=== PATIENT | male | born 1985 | race Caucasian/White ===

== ENCOUNTER 2023-03-21 12:59 | Outpatient (OUT) | payer OTHER, SELFPAY ==
--- NOTE | 2023-03-21 13:13 | XR_ITS ---
[address] [address] Patient Name: PAT BAIRES MRN: [id number] date: 1985 Sex: M Assigned Patient Location: RAD Current Patient Location: [facility] Accession/Order Number: [id number] Exam Date: 03/21/2023 13:25 Report Date: 03/21/2023 13:57 At the request of: ANABELA GARNETT Procedure: XR lumbar spine 2-3V EXAM: XR lumbar spine 2-3V HISTORY: Low Back Derangement Syndrome M53.86 COMPARISON: None. TECHNIQUE: 2 views FINDINGS: Satisfactory alignment. Maintained vertebral body heights and disc spaces. No acute fracture or subluxation. Unremarkable soft tissues. IMPRESSION: Unremarkable exam. Electronically authenticated by: ADEN ROSS Date: 03/21/2023 13:57
--- NOTE | 2023-03-21 13:13 | XR_ITS ---
[address] [address] Patient Name: PAT BAIRES MRN: [id number] date: 1985 Sex: M Assigned Patient Location: RAD Current Patient Location: [facility] Accession/Order Number: [id number] Exam Date: 03/21/2023 13:25 Report Date: 03/21/2023 13:46 At the request of: ANABELA GARNETT Procedure: XR cervical spine 5V EXAM: XR cervical spine 5V HISTORY: Radiculopathy Cervical Region M54.12 COMPARISON: None. TECHNIQUE: 5 views Findings/impression: Straightening of the cervical spine alignment. Maintained vertebral body heights and disc spaces. Endplate degenerative changes anterior spurring of C6-C7. No acute fracture or subluxation. Unremarkable soft tissues. Electronically authenticated by: ADEN ROSS Date: 03/21/2023 13:46
== END 2023-03-21 13:00 | disposition home or self-care (01) ==
LOC: RAD 13:06
PROVIDERS: PCP Family Medicine; Visit Provider Family Medicine
DX: M53.86 Other specified dorsopathies, lumbar region (principal); M54.12 Radiculopathy, cervical region
CPT/HCPCS: 72050; 72100

== ENCOUNTER 2023-05-07 08:32 | Outpatient (OUT) | payer OTHER, SELFPAY ==
--- NOTE | 2023-05-07 08:15 | NM_ITS ---
Patient: PAT BAIRES Exam Date: 05/07/2023 : 1985 Gender:M Ordering : DR Kg Javed . Admission #: [id number] Family : Order #: [id number] CLICK HERE TO VIEW EXAM RADIOLOGY REPORT PROCEDURE: NM RAMA PERF SPECT REST STR COMPARISON: None. INDICATIONS: DYSPNEA, COPD TECHNIQUE: Exam Description: Stress/Rest one day protocol gated SPECT Rest Imagin.9 mCi Tc-99m Cardiolite IV on 05/07/2023 Stress Imaging 30.3 mCi Tc-99m Cardiolite IV on 05/07/2023 Exercise Protocol: Carlos Enrique Heart Rate (bpm): Rest: 74 Max: 153 PMHR: 85 Blood Pressure: Rest: 124/88 Max: 166/104 Exercise Time: Minutes: 09 Seconds: 21 Stage Reached: Stage: 3 Mets 10.1 Symptoms: Rest and peak stress ECG findings were normal and the exercise portion of the study was normal per attending physician Dr. Schwartz . For more details please see separate cardiac stress test report. FINDINGS: QUALITY OF STUDY: Excellent. PERFUSION DEFECT: None. LOCATION: N/A SIZE: N/A. SEVERITY: N/A. TYPE: N/A. WALL MOTION: Normal. LV SIZE: Normal. 115 mL. TID / TCD: None; 0.9 LVEF: Normal. Calculated EF 58%. SUMMARY: Myocardial perfusion imaging study is NORMAL. CONCLUSION: 1. Normal nuclear medicine myocardial perfusion scan. Dictated by: Magen Johnson M.D. on 05/08/2023 at 12:01 Approved by: Magen Johnson M.D. on 05/08/2023 at 12:04
--- NOTE | 2023-05-07 12:47 | PM.STRESS ---
Stress Test Stress Test Requesting physician: Kg Javed Procedure: Exercise Cardiolite stress test General Information: Reason for Stress Test: COPD Cardiac History and Risk Factors: Former smoker, currently uses e-cigarettes. Father, mother, and grandfather had stents . Resting 12 - Lead Electrocardiogram: Rate & rhythm: Normal sinus at a rate of 80. [place]: Normal T-waves: Normal orientation ST-segments: Normal Stress Test: Protocol: Carlos Enrique protocol was followed, with injection of Cardiolite once target heart rate was achieved. Exercise capacity: Good exercise capacity. Total exercise time of 9 minutes 22 seconds reached Carlos Enrique stage 3 at 3.4MPH, 14% grade, & 10.1 METs. Blood pressure: Initial: 124/88, Maximum: 166/104, Recovery: 140/86 Rate & rhythm: Patient remained in sinus rhythm during the exercise and recovery portions of the study.? The maximum heart rate was 153, which was 85% of the maximum predicted heart rate 74. ST-segments & T-waves: There were no T-wave changes and no ST-segment changes when compared to the baseline EKG. Patient response/symptoms: Patient voiced fatigue. Interpretation: Normal exercise stress test. Patient was asymptomatic regarding chest pain. Cardiolite imaging interpretation will be reported separately. Clinical correlation required.?
== END 2023-05-07 08:33 | disposition home or self-care (01) ==
LOC: NM 08:32
PROVIDERS: PCP Family Medicine; Visit Provider Family Medicine
DX: J44.9 Chronic obstructive pulmonary disease, unspecified (principal)
CPT/HCPCS: 78452; 93017; A9500

== ENCOUNTER 2023-09-29 15:15 | Outpatient (OUT) | payer OTHER, SELFPAY | END 2023-09-29 15:16 | disposition home or self-care (01) | LOC: PST 15:16 | PROVIDERS: PCP Family Medicine; Visit Provider Surgery | DX: Z01.818 Encounter for other preprocedural examination (principal); K21.9 Gastro-esophageal reflux disease without esophagitis; R11.10 Vomiting, unspecified ==

== ENCOUNTER 2023-10-01 06:34 | Day surgery (SDC) | payer OTHER, SELFPAY ==
--- NOTE | 2023-10-01 | OP_ITS ---
OPERATION DATE: 10/01/2023 PREOPERATIVE DIAGNOSIS: Dysphagia, gastroesophageal reflux disease, regurgitation. POSTOPERATIVE DIAGNOSIS: Mild antral gastritis as well as nodular inflammation at the gastric cardia. PROCEDURE: EGD with antral biopsy and biopsy of gastric cardia inflammation. SURGEON: Matias Santamaria M.D. ANESTHESIA: Monitored anesthesia care. ESTIMATED BLOOD LOSS: Less than 1 mL. INDICATIONS AND CONSENT: Patient is a 38-year-old male with history of worsening gastroesophageal reflux disease, regurgitation and intermittent dysphagia. Indications, risks, benefits, alternatives of proceeding with EGD were explained extensively to the patient, including the risks of bleeding, aspiration, esophageal/gastric/duodenal perforation or anesthetic complications. All of his questions were answered. Informed consent was obtained. PROCEDURE: Patient brought to the operating room, placed in the left lateral decubitus position. Monitored anesthesia care was provided. Bite block was placed in the patient?s mouth. Scope was inserted into the oropharynx. Under direct visualization, it was advanced into the esophagus, past the cricopharyngeus, down to the stomach. The stomach was insufflated with air. The pylorus was traversed down to the descending portion of the duodenum. There was no evidence of duodenitis or ulceration. There was no scarring within the pyloric channel. Scope was pulled back into the stomach and retroflexed. There was no significant hiatal hernia. Within the antrum, there was linear antral gastritis consisting of erythema. No erosions or bleeding. Multiple biopsies were obtained with pediatric cold biopsy forceps with good hemostasis. Within the cardia, there was some nodular inflammation that was biopsied x2, as well, with pediatric cold biopsy forceps with good hemostasis. The GE junction was noted at 40 cm. No distal esophagitis or Hebert?s changes. The remainder of the esophagus was unremarkable. The scope was then withdrawn. Patient tolerated procedure well, was sent to recovery room in good condition. CC: Kg Javed M.D. [facility]ALS[facility]
--- OUTSIDE RECORDS SUMMARY | 2023-10-01 06:37 | XMS_ITS | CCD ---
Author Name Unknown Address [address] [facility] [address] [place] [address] Organization [facility] Care Team Providers Care Supervisor Calibration Name Role Phone TELLO ., DR PEÑALOZA Primary Care Unavailable HOY ., DR PEÑALOZA Admitting Unavailable HOY ., DR PEÑALOZA Attending Unavailable HOY ., DR PEÑALOZA Consulting Unavailable HOY ., DR PEÑALOZA Primary Care Unavailable HOY ., DR PEÑALOZA Admitting Unavailable HOY ., DR PEÑALOZA Attending Unavailable HOY ., DR PEÑALOZA Consulting Unavailable ZIEBER, DR MARY ELLEN Whitten Consulting Unavailable HOY ., DR PEÑALOZA Primary Care Unavailable HOY ., DR PEÑALOZA Admitting Unavailable HOY ., DR PEÑALOZA Attending Unavailable HOY ., DR PEÑALOZA Consulting Unavailable Rosetta Dupont Consulting Unavailable HOY ., DR PEÑALOZA Primary Care Unavailable HOY ., DR PEÑALOZA Admitting Unavailable HOY ., DR PEÑALOZA Attending Unavailable HOY ., DR PEÑALOZA Consulting Unavailable ZIEBER, DR MARY ELLEN Whitten Consulting Unavailable HOY ., DR PEÑALOZA Primary Care Unavailable HOY ., DR PEÑALOZA Admitting Unavailable HOY ., DR PEÑALOZA Attending Unavailable HOY ., DR PEÑALOZA Consulting Unavailable NAWAF GUAMAN Consulting Unavailable Anabela Garnett Primary Care Physician Matias MINAYA Attending Unavailable Anabela Garnett Referring Unavailable Allergies Allergy Classification Reported Allergen(s) Allergy Type Date of Onset Reaction(s) Facility (1 source) No Known Medication Allergies; Translations: [No Known Medication Allergies] Propensity to adverse reactions (disorder) [facility] Repository Medications Current Medications Medication Drug Class(es) Dates Sig (Normalized) Sig (Original) 24 hr desvenlafaxine succinate 50 mg extended release oral tablet (1 source) Serotonin and Norepinephrine Reuptake Inhibitor Start: 08-08-2023 Pristiq 50 mg Tab-ER Refills(s) 0 Start Date: 08/08/23 Status: Ordered hydrOXYzine hydrochloride 25 mg oral tablet (1 source) Antihistamine Start: 08-08-2023 take 1 tablet by mouth four times daily hydrOXYzine hydrochloride 25 mg Tab 25 mg = 1 tab(s), Oral, QID, Refills(s) 0 Start Date: 08/08/23 Status: Ordered pantoprazole 40 mg delayed release oral tablet (1 source) Proton Pump Inhibitor Start: 08-08-2023 take 1 tablet by mouth once daily Protonix 40 mg Tab-DR 40 mg = 1 tab(s), Oral, Daily, Refills(s) 0 Start Date: 08/08/23 Status: Ordered simvastatin 40 mg oral tablet (1 source) HMG-CoA Reductase Inhibitor Start: 08-08-2023 take 1 tablet by mouth once daily in the evening simvastatin 40 mg Tab 40 mg = 1 tab(s), Oral, qPM, Refills(s) 0 Start Date: 08/08/23 Status: Ordered Problems Active Problems Problem Classification Problem Date Documented Date Episodic/Chronic Abdominal hernia (1 source) Diaphragmatic hernia without obstruction or gangrene; Translations: [DIAPH HERNIA W/O OBST/GANGRENE] Onset: 01-02-2023 Episodic Abdominal pain (5 sources) Epigastric pain; Translations: [EPIGASTRIC PAIN] Onset: 09-24-2022 Episodic Anxiety disorders (1 source) Generalized anxiety disorder 08-08-2023 Chronic Chronic obstructive pulmonary disease and bronchiectasis (2 sources) Chronic obstructive pulmonary disease, unspecified; Translations: [Chronic obstructive lung disease] Onset: 01-02-2023 08-08-2023 Chronic Disorders of lipid metabolism (2 sources) Pure hypercholesterolemia, unspecified; Translations: [Pure hypercholesterolemia] Onset: 09-13-2022 08-08-2023 Chronic Esophageal disorders (3 sources) Gastro-esophageal reflux disease without esophagitis; Translations: [Gastroesophageal reflux disease without esophagitis] Onset: 09-26-2022 Chronic Nausea and vomiting (2 sources) Vomiting; Translations: [Vomiting, unspecified] Onset: 08-19-2023 Episodic Nonspecific chest pain (6 sources) Other chest pain; Translations: [Chest pain] Onset: 12-30-2022 Episodic Osteoarthritis (4 sources) Unspecified osteoarthritis, unspecified site; Translations: [UNSPECIFIED OSTEOARTHRITIS UNS SITE] Onset: 09-10-2022 Chronic Other nutritional; endocrine; and metabolic disorders (1 source) Body mass index 30+ - obesity 08-19-2023 Chronic Other nutritional; endocrine; and metabolic disorders (1 source) Obesity 08-08-2023 Chronic Past or Other Problems Problem Classification Problem Date Documented Da te Episodic/Chronic Other screening for suspected conditions (not mental disorders or infectious disease) (1 source) Encounter for screening for malignant neoplasm of prostate; Translations: [ENC SCREEN MALIG NEOPLASM PROSTATE] Onset: 04-30-2022 Episodic Results Test Name Value Interpretation Reference Range Facility Consent for Procedure/Surger yon 08-21-2023 Consent for Procedure/Surgery [id number] F Normal [facility] Facesheeton 08-20-2023 Facesheet [id number]#[id number] [facility] Ambulatory Visit Summaryon 1 10-20-2022 Ambulatory Visit Summary NEDA BAIRESCHULA Holt :1985 Visit Date:08/19/2023 Ambulatory Visit Instructions Your Care Team Attending Physician - REI KINGSLEY, Matias Whitten Primary Care Physician - Tello KINGSLEY, Anabela Referring Physician - Anabela Garnett MD This Is Your Medications List desvenlafaxine (Pristiq 50 mg Tab-ER) hydrOXYzine (hydrOXYzine hydrochloride 25 mg Tab) pantoprazole (Protonix 40 mg Tab-DR) simvastatin (simvastatin 40 mg Tab) Procedures Performed Closed fracture of right femur. Discharge Vitals Heart Rate (Peripheral) 76 Respiratory Rate 16 Blood Pressure 136/90 Height 167.6 cm Height 66 in Weight 89 kg Weight 195.8 lb BMI 31.68 Medications What How Much When Instructions Unchanged desvenlafaxine (Pristiq 50 mg Tab-ER) Unchanged hydrOXYzine (hydrOXYzine hydrochloride 25 mg Tab) 1 Tablets By Mouth 4 times a day Unchanged pantoprazole (Protonix 40 mg Tab-DR) 1 Tablets By Mouth Every day Unchanged simvastatin (simvastatin 40 mg Tab) 1 Tablets By Mouth Once a day (in the evening) Medications and Immunizations Administered Not Given influenza virus vaccine, inactivated, Patient Refuses Allergies No Known Allergies No Known Medication Allergies Problems Ongoing - Any problem that you are currently receiving treatment for. BMI 31.0-31.9,adult Chronic obstructive pulmonary disease Gastroesophageal reflux disease Generalized anxiety disorder Obesity Pure hypercholesterolemia Patient Survey You may receive a survey via text or e-mail asking about your office visit. Please share your experience with us by completing your survey. We appreciate your feedback and thank you for choosing us for your care. Normal [facility] Consultation Noteon 07-03-20 23 Consultation Note [id number] F Normal [facility] Physician Referralon 023 Physician Referral [id number] F Normal [facility] CT ABDOMEN W CONon [address]BD[address] W CON CT ABDOMEN W CON, 12/30/2022 7:37 AM EDT INDICATION: Epigastric pain COMPARISON: Small bowel follow-through 09/24/2022 TECHNIQUE: Axial images of the abdomen were obtained after the administration of oral and IV contrast. Multiplanar reformatted images were generated and reviewed as needed. Dose reduction techniques were achieved by using automated exposure control and/or adjustment of mA and/or kV according to patient size and/or use of iterative reconstruction technique. FINDINGS: No consolidation or effusion. The liver, gallbladder, pancreas, spleen and adrenals are unremarkable. Symmetric nephrograms without evidence of obstruction. Simple left renal cortical cyst and subcentimeter cortical hypodensities bilaterally, too small to characterize. No nephrolithiasis. No aortic aneurysm. Small sliding hiatal hernia. No bowel obstruction or acute focal inflammation. No pneumatosis, pneumoperitoneum or ascites. No mesenteric or retroperitoneal lymphadenopathy. Small fat-containing umbilical hernia. No acute fracture or dislocation. IMPRESSION: 1. No acute findings. 2. Small sliding hiatal hernia. Electronically authenticated by: NAWAF GUAMAN Date: 2022-12-30 15:43 Normal [facility] HEMOGLOBINon 12-30-2022 Hemoglobin (Bld) [Mass/Vol] 13.5 g/dL Critically low 14.0-18.0 [facility] Comment on above: Performed By: #### H GB ####[facility] [id number] [id number] Morris XR GI UPPER AIR KUB DUAL CON TRASTon 09-24-2022 XR GI UPPER AIR KUB DUAL CONTRAST EXAMINATION: XR SMALL BOWEL FOLLOW THOUGH, XR GI UPPER AIR KUB DUAL CONTRAST, XR CINERADIOGRAPHY HISTORY: Epigastric pain , pressure, reflux COMPARISON: No relevant comparison available. TECHNIQUE: Upper GI and small bowel series was performed in the usual manner. Standard level fluoroscopic mode of operation utilized. FINDINGS: ESOPHAGUS: Small hiatal hernia and mild gastroesophageal reflux. No obstruction, dilation, or abnormal mucosal appearance. STOMACH: Normal. No obstruction, mass, or ulceration. Normal motility. DUODENUM: Normal. No ulceration or diverticulum. JEJUNUM: Normal. Normal motility. No obstruction or visible lesion. ILEUM: Normal. Normal motility. No obstruction or visible lesion. OTHER: Negative. IMPRESSION: 1. Small hiatal hernia and mild gastroesophageal reflux. 2. Unremarkable small bowel follow-through series. Electronically authenticated by: MARY ELLEN FISHER Date: 2022-09-24 12:25 Normal [facility] H PYLORI ANTIBODY IGGon 08-16 H. PYLORI IGG ABS 0.12 Index Value Normal 0.00-0.79 [facility] Comment on above: Result Comment: Nega tive <0.80 Equivocal 0.80 - 0.89 Positive >0.89 Performed By: #### H PYLLC ####[facility] [id number] [id number] Morris AMYLASEon 09-10-2022 Amylase [Catalytic activity/Vol] 64 U/L Normal 25-115 [facility] Comment on above: Performed By: #### C MP, LIPA, ADAL, LIPID, DBIL #### [facility] [address] [address] [address] Lanre Morris BILIRUBIN CONJUGATED (DIRECT )on 09-10-2022 BILI, CONJUGATED 0.1 mg/dL Normal 0.0-0.2 [facility] Comment on above: Performed By: #### C MP, LIPA, ADAL, LIPID, DBIL #### [facility] [address] [address] [address] Lanre Morris LIPASEon 09-10-2022 Lipase [Catalytic activity/Vol] 63.0 U/L Critically low 73.0-393.0 [facility] Comment on above: Performed By: #### C MP, LIPA, ADAL, LIPID, DBIL #### [facility] [address] [address] [address] Lanre Morris LIPID PROFILEon 09-10-2022 CHOL-HDL RATIO NORM SEE BELOW Normal [facility] Comment on above: Result Comment: 3.3 - 4.4 LOW RISK 4.4 - 7.1 AVERAGE RISK 7.1 - 11.0 MODERATE RISK >11.0 HIGH RISK Performed By: #### C MP, LIPA, ADAL, LIPID, DBIL #### [facility] [address] [address] [address] Lanre Morris Cholesterol [Mass/Vol] 210 mg/dL Critically high <=200 [facility] Comment on above: Performed By: #### C MP, LIPA, ADAL, LIPID, DBIL #### [facility] [address] [address] [address] Lanre Morris Cholesterol in HDL [Mass/Vol] 45 mg/dL Normal 40-60 [facility] Comment on above: Performed By: #### C MP, LIPA, ADAL, LIPID, DBIL #### [facility] [address] [address] [address] Lanre Morris Cholesterol in LDL [Mass/Vol] 126.8 mg/dL Normal [facility] Comment on above: Performed By: #### C MP, LIPA, ADAL, LIPID, DBIL #### [facility] [address] [address] [address] Lanre Morris Cholesterol.total/Ch olesterol in HDL [Mass ratio] 4.7 {ratio} Normal [facility] Comment on above: Performed By: #### C MP, LIPA, ADAL, LIPID, DBIL #### [facility] [address] [address] [address] Lanre Morris HDL NORMAL > or = 60 mg/dl - LO W CARDIOVASCULAR RISK <40 mg/dl - HIGH CARDIOVASCULAR RISK Normal [facility] Comment on above: Performed By: #### C MP, LIPA, ADAL, LIPID, DBIL #### [facility] [address] [address] [address] Lanre Morris LDL CALC NORMAL SEE BELOW Normal [facility] Comment on above: Result Comment: <100 mg/dl OPTIMAL 100 - 129 mg/dl NEAR OR ABOVE OPTIMAL 130 - 159 mg/dl BORDERLINE HIGH 160 - 189 mg/dl HIGH >190 mg/dl VERY HIGH Performed By: #### C MP, LIPA, ADAL, LIPID, DBIL #### [facility] [address] [place] [address] Dr. Lanre Morris Triglyceride [Mass/Vol] 191 mg/dL Critically high <=150 [facility] Comment on above: Performed By: #### C MP, LIPA, ADAL, LIPID, DBIL #### [facility] [address] [place] [address] Dr. Lanre Morirs VLDL CALC 38.2 mg/dL Normal [facility] Comment on above: Performed By: #### C MP, LIPA, ADAL, LIPID, DBIL #### [facility] [address] [place] [address] Dr. Lanre Morris PROF 14(COMP METB)on 022 Albumin [Mass/Vol] 4.2 g/dL Normal 3.4-5.0 [facility] Comment on above: Performed By: #### C MP, LIPA, ADAL, LIPID, DBIL #### [facility] [address] [place] [address] Dr. Lanre oMrris Albumin/Globulin [Mass ratio] 1.2 {ratio} Normal [facility] Comment on above: Performed By: #### C MP, LIPA, ADAL, LIPID, DBIL #### [facility] [address] [place] [address] Dr. Lanre Morris ALP [Catalytic activity/Vol] 67 U/L Normal 46-116 [facility] Comment on above: Performed By: #### C MP, LIPA, ADAL, LIPID, DBIL #### [facility] [address] [place] [address] Dr. Lanre Morris ALT [Catalytic activity/Vol] 29 U/L Normal 16-63 [facility] Comment on above: Performed By: #### C MP, LIPA, ADAL, LIPID, DBIL #### [facility] [address] [address] [address] Lanre Morris Anion gap [Moles/Vol] 9.7 mmol/L Normal [facility] Comment on above: Performed By: #### C MP, LIPA, ADAL, LIPID, DBIL #### [facility] [address] [place] [address] Dr. Lanre Morris AST [Catalytic activity/Vol] 18 U/L Normal 15-37 [facility] Comment on above: Performed By: #### C MP, LIPA, ADAL, LIPID, DBIL #### [facility] [address] [place] [address] Dr. Lanre Morris Bilirubin [Mass/Vol] 0.4 mg/dL Normal 0.2-1.0 [facility] Comment on above: Performed By: #### C MP, LIPA, ADAL, LIPID, DBIL #### [facility] [address] [place] [address] Dr. Lanre Morris Calcium [Mass/Vol] 9.6 mg/dL Normal 8.5-10.1 [facility] Comment on above: Performed By: #### C MP, LIPA, ADAL, LIPID, DBIL #### [facility] [address] [place] [address] Dr. Lanre Morris Chloride [Moles/Vol] 101 mmol/L Normal 98-107 [facility] Comment on above: Performed By: #### C MP, LIPA, ADAL, LIPID, DBIL #### [facility] [address] [address] [address] Lanre Morris CO2 [Moles/Vol] 32.7 mmol/L Critically high 21.0-32.0 [facility] Comment on above: Performed By: #### C MP, LIPA, ADAL, LIPID, DBIL #### [facility] [address] [place] [address] Dr. Lanre Morris Creatinine [Mass/Vol] 0.92 mg/dL Normal 0.70-1.30 [facility] Comment on above: Performed By: #### C MP, LIPA, ADAL, LIPID, DBIL #### [facility] [address] [address] [address] Lanre Morris EGFR-AF NIGERIEN >60 Normal >=60 [facility] Comment on above: Performed By: #### C MP, LIPA, ADAL, LIPID, DBIL #### [facility] [address] [address] [address] Lanre Morris EGFR-NON AF NIGERIEN >60 Normal >=60 [facility] Comment on above: Performed By: #### C MP, LIPA, ADAL, LIPID, DBIL #### [facility] [address] [place] [address] Dr. Lanre Morris Globulin (S) [Mass/Vol] 3.5 g/dL Normal [facility] Comment on above: Performed By: #### C MP, LIPA, ADAL, LIPID, DBIL #### [facility] [address] [place] [address] Dr. Lanre Morris Glucose [Mass/Vol] 94 mg/dL Normal 74-106 [facility] Comment on above: Performed By: #### C MP, LIPA, ADAL, LIPID, DBIL #### [facility] [address] [place] [address] Dr. Lanre Morris Potassium [Moles/Vol] 4.4 mmol/L Normal 3.5-5.1 [facility] Comment on above: Performed By: #### C MP, LIPA, ADAL, LIPID, DBIL #### [facility] [address] [place] [address] Dr. Lanre Morris Protein [Mass/Vol] 7.7 g/dL Normal 6.4-8.2 [facility] Comment on above: Performed By: #### C MP, LIPA, ADAL, LIPID, DBIL #### [facility] [address] [place] [address] Dr. Lanre Morris Sodium [Moles/Vol] 139 mmol/L Normal 136-145 [facility] Comment on above: Performed By: #### C MP, LIPA, ADAL, LIPID, DBIL #### [facility] [address] [address] [address] Lanre Morris Urea nitrogen [Mass/Vol] 10.0 mg/dL Normal 7.0-18.0 [facility] Comment on above: Performed By: #### C MP, LIPA, ADAL, LIPID, DBIL #### [facility] [address] [address] [address] Lanre Morris Urea nitrogen/Creatinine [Mass ratio] 10.9 mg/mg Normal [facility] Comment on above: Performed By: #### C MP, LIPA, ADAL, LIPID, DBIL #### [facility] [address] [address] [address] CHEST W CONon 05-03-2022 CT CHEST W CON EXAMINATION: CT CHES T W CON HISTORY: Chest pain ; left chest pain for several months; no known injury COMPARISON: No relevant comparison available. TECHNIQUE: Multi-planar CT images were created with IV contrast. Axial, Coronal, and Sagittal images. Dose reduction techniques were achieved by using automated exposure control and/or adjustment of mA and/or kV according to patient size and/or use of iterative reconstruction technique. FINDINGS: LUNGS: No visible pulmonary disease. PLEURA: No mass, effusion, or pneumothorax. VASCULATURE: No abnormality. FABI: No mass or adenopathy. MEDIASTINUM: No mass or adenopathy. CARDIAC: No enlargement, pericardial thickening, or significant calcification. AORTA: No aneurysm or dissection. CHEST WALL: No mass or axillary adenopathy. BONES: No bone lesion or fracture. LIMITED ABDOMEN: No suspicious findings Limited images of the upper abdomen. OTHER: Negative. IMPRESSION: 1. No abnormal or suspicious findings to account for patient's symptoms. Electronically authenticated by: MARY ELLEN FISHER Date: 2022-05-03 16:49 Normal [facility] INSULINon 04-30-2022 Insulin 11.5 uIU/mL Normal 2.6-24.9 [facility] Comment on above: Performed By: #### I NSULIN ####[facility] [id number] [address]Dr. Lanre Morris T4, T3U, FTI LABCORPon 04-30 Free Thyroxine Index 1.9 Normal 1.2-4.9 [facility] Comment on above: Performed By: #### T HYLC ####[facility] [id number] [address]Dr. Lanre Morris T3 Uptake 27 % Normal 24-39 [facility] Comment on above: Performed By: #### T HYLC ####[facility] [id number] [address]Dr. Lanre Morris T4 [Mass/Vol] 6.9 ug/dL Normal 4.5-12.0 [facility] Comment on above: Performed By: #### T HYLC ####[facility] [id number] [address]Dr. Lanre Morris TESTOSTERONE, TOTALon 2021 Testosterone [Mass/Vol] 559 ng/dL Normal 264-916 [facility] Comment on above: Result Comment: Adul t male reference interval is based on a population of healthy nonobese males (BMI <30) between 19 and 39 years old. Madiha, et.al. JCEM 2017,102;0967-6235. PMID: [id number]. Performed By: #### T ESTTOT ####[facility] [id number] [address]Dr. Lanre Morris CBC AUTO DIFFon 04-29-2022 BASO # 0.1 103/ul Normal 0.0-0.1 [facility] Comment on above: Performed By: #### C BC ####[facility] [id number] [id number]. Lanre Arturo Basophils/100 WBC (Bld) 0.8 % Normal 0.2-2.0 [facility] Comment on above: Performed By: #### C BC ####[facility] [id number] [address]Dr. Lanre Arturo EO # 0.4 103/ul Normal 0.0-0.7 [facility] Comment on above: Performed By: #### C BC ####[facility] [id number] [id number]. Lanre Morris Eosinophils/100 WBC (Bld) 4.9 % Normal 0.9-7.0 [facility] Comment on above: Performed By: #### C BC ####[facility] [id number] [address]Dr. Lanre Morris Erythrocyte distribution width (RBC) [Ratio] 13.7 % Normal 11.0-15.0 [facility] Comment on above: Performed By: #### C BC ####[facility] [id number] [place], [place] [address]Dr. Lanre Morris Hematocrit (Bld) [Volume fraction] 44.3 % Normal 42.0-54.0 [facility] Comment on above: Performed By: #### C BC ####[facility] [address] [place], [place] [address]Dr. Lanre Morris Hemoglobin (Bld) [Mass/Vol] 15.0 g/dL Normal 14.0-18.0 [facility] Comment on above: Performed By: #### C BC ####[facility] [address] [place], [place] [address]Dr. Lanre Morris IG # 0.04 10e3/ul Critically high 0.00-0.03 [facility] Comment on above: Performed By: #### C BC ####[facility] [facility] [id number] [address]Dr. Lanre Morris IG % 0.5 % Normal 0.0-0.5 [facility] Comment on above: Performed By: #### C BC ####[facility] [address] [place], [place] [address]Dr. Lanre Morris LYMPH # 2.7 103/ul Normal 1.2-3.8 [facility] Comment on above: Performed By: #### C BC ####[facility] [address] [place], [place] [address]Dr. Lanre Morris Lymphocytes/100 WBC (Bld) 35.2 % Normal 20.5-60.0 [facility] Comment on above: Performed By: #### C BC ####[facility] [address] [id number]. Lanre Morris MANUAL DIFF REQ NO Normal [facility] Comment on above: Performed By: #### C BC ####[facility] [address] [id number]. Lanre Morris MCH (RBC) [Entitic mass] 29.8 pg Normal 25.9-34.0 [facility] Comment on above: Performed By: #### C BC ####[facility] [address] [place], [place] [address]Dr. Lanre Morris MCHC (RBC) [Mass/Vol] 33.9 g/dL Normal 29.9-35.2 [facility] Comment on above: Performed By: #### C BC ####[facility] [address] [place], [place] [address]Dr. Lanre Morris MCV (RBC) [Entitic vol] 88.1 fL Normal 80.0-94.0 [facility] Comment on above: Performed By: #### C BC ####[facility] [address] [place], [place] [address]Dr. Lanre Morris MONO # 0.6 103/ul Normal 0.3-0.8 [facility] Comment on above: Performed By: #### C BC ####[facility] [address] [place], [place] [address]Dr. Lanre Arturo Monocytes/100 WBC (Bld) 8.4 % Normal 1.7-12.0 [facility] Comment on above: Performed By: #### C BC ####[facility] [address] [place], [place] [address]Dr. Lanre Morris NEUT # 3.8 103/ul Normal 1.4-6.5 [facility] Comment on above: Performed By: #### C BC ####[facility] [address] [place], [place] [address]Dr. Lanre Morris Neutrophils/100 WBC (Bld) 50.2 % Normal 43.0-75.0 [facility] Comment on above: Performed By: #### C BC ####[facility] [address] [id number]. Lanre Morris Platelet mean volume (Bld) [Entitic vol] 9.6 fL Normal 9.5-13.5 [facility] Comment on above: Performed By: #### C BC ####[facility] [address] [id number]. Lanre Mroris PLT 363 103/ul Normal 150-450 [facility] Comment on above: Performed By: #### C BC ####[facility] [address] [id number]. Lanre Morris RBC 5.03 106/ul Normal 4.70-6.10 [facility] Comment on above: Performed By: #### C BC ####[facility] [address] [address]Dr. Lanre Morris WBC 7.6 103/ul Normal 4.0-11.0 [facility] Comment on above: Performed By: #### C BC ####[facility] [address] [place], [place] [address]Dr. Lanre Morris GLYCOHEMOGLOBIN A1Con 2021 ADA RECOMMENDATION SEE BELOW Normal [facility] Comment on above: Result Comment: ADA RECOMMENDED LIMIT 4.0 - 6.0 ADA THERAPEUTIC TARGET < 7.0 ACTION SUGGESTED > 7.0 Performed By: #### A 1C ####[facility] [address] [place], [place] [address]Dr. Lanre Morris Glucose [Mass/Vol] 108 mg/dL Normal [facility] Comment on above: Performed By: #### A 1C ####[facility] [address] [id number]. Lanre Morris HbA1c (Bld) [Mass fraction] 5.4 % Normal 4.5-6.2 [facility] Comment on above: Performed By: #### A 1C ####[facility] M[address] [place], [place] [address]Dr. Lanre Morris LIPID PROFILEon 04-29-2022 CHOL-HDL RATIO NORM SEE BELOW Normal [facility] Comment on above: Result Comment: 3.3 - 4.4 LOW RISK 4.4 - 7.1 AVERAGE RISK 7.1 - 11.0 MODERATE RISK >11.0 HIGH RISK Performed By: #### C MP, LIPID, TSH #### [facility] [address] [address] [address] Lanre Morris Cholesterol [Mass/Vol] 254 mg/dL Critically high <=200 [facility] Comment on above: Performed By: #### C MP, LIPID, TSH #### [facility] [address] [address] [address] Lanre Morris Cholesterol in HDL [Mass/Vol] 44 mg/dL Normal 40-60 [facility] Comment on above: Performed By: #### C MP, LIPID, TSH #### [facility] [address] [place] [address] Dr. Lanre Morris Cholesterol in LDL [Mass/Vol] 173.6 mg/dL Normal [facility] Comment on above: Performed By: #### C MP, LIPID, TSH #### [facility] [address] [address] [address] Lanre Morris Cholesterol.total/Ch olesterol in HDL [Mass ratio] 5.8 {ratio} Normal [facility] Comment on above: Performed By: #### C MP, LIPID, TSH #### [facility] [address] [address] [address] Lanre Morris HDL NORMAL > or = 60 mg/dl - LO W CARDIOVASCULAR RISK <40 mg/dl - HIGH CARDIOVASCULAR RISK Normal [facility] Comment on above: Performed By: #### C MP, LIPID, TSH #### [facility] [address] [address] [address] Lanre Morris LDL CALC NORMAL SEE BELOW Normal [facility] Comment on above: Result Comment: <100 mg/dl OPTIMAL 100 - 129 mg/dl NEAR OR ABOVE OPTIMAL 130 - 159 mg/dl BORDERLINE HIGH 160 - 189 mg/dl HIGH >190 mg/dl VERY HIGH Performed By: #### C MP, LIPID, TSH #### [facility] [address] [address] [address] Lanre Morris Triglyceride [Mass/Vol] 182 mg/dL Critically high <=150 [facility] Comment on above: Performed By: #### C MP, LIPID, TSH #### [facility] [address] [place] [address] Dr. Lanre Morris VLDL CALC 36.4 mg/dL Normal [facility] Comment on above: Performed By: #### C MP, LIPID, TSH #### [facility] [address] [place] [address] Dr. Lanre Morris PROF 14(COMP METB)on 022 Albumin [Mass/Vol] 4.3 g/dL Normal 3.4-5.0 [facility] Comment on above: Performed By: #### C MP, LIPID, TSH #### [facility] [address] [place] [address] Dr. Lanre Morris Albumin/Globulin [Mass ratio] 1.3 {ratio} Normal [facility] Comment on above: Performed By: #### C MP, LIPID, TSH #### [facility] [address] [place] [address] Dr. Lanre Morris ALP [Catalytic activity/Vol] 58 U/L Normal 46-116 [facility] Comment on above: Performed By: #### C MP, LIPID, TSH #### [facility] [address] [place] [address] Dr. Lanre Morris ALT [Catalytic activity/Vol] 21 U/L Normal 16-63 [facility] Comment on above: Performed By: #### C MP, LIPID, TSH #### [facility] [address] [place] [address] Dr. Lanre Morris Anion gap [Moles/Vol] 11.3 mmol/L Normal [facility] Comment on above: Performed By: #### C MP, LIPID, TSH #### [facility] [address] [place] [address] Dr. Lanre Morris AST [Catalytic activity/Vol] 12 U/L Critically low 15-37 [facility] Comment on above: Performed By: #### C MP, LIPID, TSH #### [facility] [address] [place] [address] Dr. Lanre Morris Bilirubin [Mass/Vol] 0.3 mg/dL Normal 0.2-1.0 [facility] Comment on above: Performed By: #### C MP, LIPID, TSH #### [facility] [address] [address] [address] Lanre Morris Calcium [Mass/Vol] 9.3 mg/dL Normal 8.5-10.1 [facility] Comment on above: Performed By: #### C MP, LIPID, TSH #### [facility] [address] [address] [address] Lanre Morris Chloride [Moles/Vol] 102 mmol/L Normal 98-107 [facility] Comment on above: Performed By: #### C MP, LIPID, TSH #### [facility] [address] [place] [address] Dr. Lanre Morris CO2 [Moles/Vol] 29.8 mmol/L Normal 21.0-32.0 [facility] Comment on above: Performed By: #### C MP, LIPID, TSH #### [facility] [address] [place] [address] Dr. Lanre Morris Creatinine [Mass/Vol] 0.99 mg/dL Normal 0.70-1.30 [facility] Comment on above: Performed By: #### C MP, LIPID, TSH #### [facility] [address] [place] [address] Dr. Lanre Morris EGFR-AF NIGERIEN >60 Normal >=60 [facility] Comment on above: Performed By: #### C MP, LIPID, TSH #### [facility] [address] [place] [address] Dr. Lanre Morris EGFR-NON AF NIGERIEN >60 Normal >=60 [facility] Comment on above: Performed By: #### C MP, LIPID, TSH #### [facility] [address] [place] [address] Dr. Lanre Morris Globulin (S) [Mass/Vol] 3.3 g/dL Normal [facility] Comment on above: Performed By: #### C MP, LIPID, TSH #### [facility] [address] [address] [address] Lanre Morris Glucose [Mass/Vol] 112 mg/dL Critically high 74-106 T [facility] Comment on above: Performed By: #### C MP, LIPID, TSH #### [facility] [address] [address] [address] Lanre Morris Potassium [Moles/Vol] 4.1 mmol/L Normal 3.5-5.1 [facility] Comment on above: Performed By: #### C MP, LIPID, TSH #### [facility] [address] [address] [address] Lanre Morris Protein [Mass/Vol] 7.6 g/dL Normal 6.4-8.2 [facility] Comment on above: Performed By: #### C MP, LIPID, TSH #### [facility] [address] [address] [address] Lanre Morris Sodium [Moles/Vol] 139 mmol/L Normal 136-145 [facility] Comment on above: Performed By: #### C MP, LIPID, TSH #### [facility] [address] [address] [address] Lanre Morris Urea nitrogen [Mass/Vol] 9.0 mg/dL Normal 7.0-18.0 [facility] Comment on above: Performed By: #### C MP, LIPID, TSH #### [facility] [address] [address] [address] Lanre Morris Urea nitrogen/Creatinine [Mass ratio] 9.1 mg/mg Normal [facility] Comment on above: Performed By: #### C MP, LIPID, TSH #### [facility] [address] [address] [address] Lanre Morris TSHon 04-29-2022 TSH 1.103 uIU/mL Normal 0.358-3.740 [facility] Comment on above: Performed By: #### C MP, LIPID, TSH ####[facility] [address] [address]Dr. Lanre Morris Vital Signs Date Time Vital Sign Value Performing Clinician Faci lity 08-19-2023 15:36-0500 Blood Pressure Location Matias MINAYA [facility] [place] 08-19-2023 15:36-0500 Diastolic blood pressure 90 mm[Hg] Matias SOTOL [facility] [place] 08-19-2023 15:36-0500 Heart rate 76 /min Matias NILL [facility] [place] 08-19-2023 15:36-0500 Respiratory rate 16 /min Matias NILL [facility] [place] 08-19-2023 15:36-0500 Systolic blood pressure 136 mm[Hg] Matias NILL [facility] [place] Encounters Encounter Date Encounter Type Care Provider Facility Start: 08-19-2023 End: 08-20-2023 ambulatory Matias MINAYA Facility:[facility] Start: 08-19-2023 End: 08-19-2023 Patient encounter procedure Matias MINAYA [facility] [place] Start: 06-30-2023 ambulatory Matias MINAYA Facility:[facility] Start: 12-30-2022 End: 12-31-[address] ANABELA GARNETT . Facility: Start: 09-24-2022 End: 09-25-[address] ANABELA GARNETT . Facility:[facility] Start: 09-10-2022 End: 09-11-[address] ANABELA GARNETT . Facility:[facility] Start: 05-03-2022 End: 05-04-[address] ANABELA GARNETT . Facility:[facility] Start: 04-30-2022 Encounter for genera l adult medical examination without abnormal findings DR ANABELA GARNETT . [facility] Start: 04-29-2022 End: 04-30-[address] ANABELA GARNETT . Facility: Start: 04-29-2022 End: 04-30-2022 Encounter for general adult medical examination without abnormal findings DR ANABELA GARNETT . Facility:[facility] Procedures Date Procedure Procedure Detail Performing Clinician Start: 08-15-[address] AIDA GARNETT . Comment on above: Performed By: #### [facility] ####[facility] [address] [place], [place] [address]DmParveen Morris Closed fracture of r ight femur (disorder) Matias MINAYA Immunizations Immunization Date Immunization Notes Care Provider Fa cility NEGATED: Highlighted row has not occurred!08-19-2023 influenza virus vaccine, unspecified formulation Matias MINAYA [facility] [place] Payers Date Payer Category Payer Private Health Insurance [id number] 1985 Unknown [id number] 2.16.84 [id number] 1983 Unknown [id number] 2.16.84 [id number] 1983 Unknown [id number] 2.16.84 [id number] 1983 Unknown [id number] 2.16.84 [id number] 1983 Unknown [id number] 2.16.84 [id number] 1983 Unknown [id number] 2.16.8 [id number] 1983 Unknown [id number] 2.16.8 [id number] 1961 Private Health Insurance [id number] Social History Date Type Detail Facility Start: 08-19-2023 Tobacco smoking status Ex-smoker (fi nding) [facility] [place] Tobacco smoking status Smokeless tobacco user within last 30 days [facility] [place] Sex Assigned At Male [facility] Functional Status Date Assessment Result Facility 08-19-2023 [facility] N[facility]23 Note Date & Type Note Facility 08-19-2023 Note Chief Complaint consultation for GERD HPI Staff 38 year old male presents on consultation from Dr. Garnett for GERD. Reports two year history of intermittent feeling of fullness in the chest. Reports feeling this primarily several hours after eating salad and bananas. Denies epigastric pain, nausea, vomiting, heartburn or indigestion. Taking Protonix 40mg BID for several months without change in symptoms. History of Present Illness 38 yo male with COPD, hypercholesterolemia, GERD, PRABHAKAR referred for GERD; reports 2 year h/o intermittent chest pressure and regurgitation after eating, worse with solid foods, occasional dysphagia; no early satiety or wt loss, no N/V; no bowel changes; slight improvement with Protonix; now taking bid; no abdominal operations or previous endoscopy; no asa or NSAID use; no fmhx of GI malignancy or IBD; vapes nicotine containing substances. Review of Systems PHQ Score Initial Depression Screen Score: 0 SCORE ROS - Provider Constitutional: no fever, no sweats, no weight loss. Eyes: no glasses, no blurred vision, no visual loss. ENMT: no dentures, no hoarseness, no swallowing difficulties, no hearing loss, no ear infection(s), no nose bleeds. Cardiovascular: normal blood pressure, no chest pain, regular heartbeat, no heart murmur. Respiratory: no shortness of breath, no cough, no asthma, no wheezing. Gastrointestinal: no nausea, no vomiting, no diarrhea, no constipation, no blood in stool, no change in bowel habits, no abdominal pain, no hepatitis. Genitourinary: no kidney stones, no urine infection, no dysuria. Musculoskeletal: no pain, no weakness. Skin: no changing moles, no rash, no skin lumps. Neurologic: no seizures, no epilepsy, no headache. Psychiatric: no emotional or psychiatric problem. Heme/Lymph: no bleeding problems, no anemia, no blood clots, no transfusions. Allergy/Immunologic: no swollen lymph nodes/glands, no IV drug abuse. Other: Additional ROS info: Except as noted in the above Review of Systems and in the History of Present Illness, all other systems have been reviewed and are negative or noncontributory. Physical Exam Vitals & Measurements HR: 76(Peripheral) RR: 16 BP: 136/90 HT: 66 in HT: 167.6 cm WT: 89 kg WT: 195.8 lb BMI: 31.68 HEENT: normal conjunctiva, sclera clear, no scleral icterus, EOM intact, PERRLA, oral mucosa moist without lesions. Neck: trachea midline, no mass, symmetric, no thyromegaly or nodules, no adenopathy Respiratory: lungs CTA, respirations non labored. Cardiovascular: regular rate and rhythm, no murmur, no pedal edema or varicosities. Gastrointestinal: soft, non distended, no tenderness, no masses, no palpable hernias, diastasis recti no, no hepatosplenomegaly; normal bs Lymphatic: no cervical adenopathy, no supraclavicular adenopathy. Musculoskeletal: normal gait, digits and nails without infection, nodes, cyanosis, clubbing. Skin: no rashes, no lesions, no ulcers, no subcutaneous nodules, induration. Psychiatric/Neuro: oriented to time, place, person, judgement normal, affect appropriate for age, insight intact, no focal deficits. Tests: , review of old records completed , Discussed surgical options, risks, and possible complications with patient. Assessment/Plan 1. Gastroesophageal reflux disease (K21.9: Gastro-esophageal reflux disease without esophagitis) plan EGD under anesthesia for further evaluation, informed consent obtained. 2. Regurgitation of food (R11.10: Vomiting, unspecified) see # 1 3. Chest pressure (R07.89: Other chest pain) see # 1 Follow-up No qualifying data available Problem List/Past Medical History Ongoing BMI 31.0-31.9,adult Chest pressure Chronic obstructive pulmonary disease Gastroesophageal reflux disease Generalized anxiety disorder Obesity Pure hypercholesterolemia Regurgitation of food Historical No qualifying data Procedure/Surgical History Closed fracture of right femur. Medications hydrOXYzine hydrochloride 25 mg Tab, 25 mg= 1 tab(s), Oral, QID Pristiq 50 mg Tab-ER Protonix 40 mg Tab-DR, 40 mg= 1 tab(s), Oral, Daily simvastatin 40 mg Tab, 40 mg= 1 tab(s), Oral, qPM Allergies No Known Allergies No Known Medication Allergies Social History Alcohol Current, Beer, 1-2 times per week, 08/19/2023 Substance Abuse Current, Marijuana, 1-2 times per month, 08/19/2023 Tobacco Former smoker, quit more than 30 days ago Tobacco Use:. Smokeless tobacco user within last 30 days Smokeless Tobacco Use:. Cigarettes, Vaping, 0.5 per day. Started age 16.0 Years. Yes, 08/19/2023 Family History CAD - Coronary artery disease: Father. Heart disease: Father. Hypertension: Father. Hypothyroidism: Mother. Multiple sclerosis: Sister. Immunizations Vaccine Date Status Comments influenza virus vaccine, inactivated - Not Given Patient Refuses [facility] Comment on above: Result Comment: Elec tronically Signed By: Matias MINAYA MD\Date and Time Signed: 08/19/23 16:02 EST Clinical Note 09-10-2022 Note Date & Type Note Facility 09-10-2022 Note PROCEDURE: XR KNEE R T 4V or > COMPARISON: None. HISTORY: Osteoarthritis FINDINGS: BONES:No acute fracture or dislocation. No significant degenerative changes. Remote fixation of the femur utilizing a retrograde intramedullary nail SOFT TISSUES:Negative. No visible soft tissue swelling. EFFUSION:None visible. OTHER: Negative. IMPRESSION: No acute abnormality Electronically authenticated by: ROSETTA DUPONT Date: 2022-09-10 16:49 [facility] Evaluation + Plan note Note Date & Type Note Facility Evaluation + Plan note No data available for this section [facility] [place] [facility] Discharge instructions Note Date & Type Note Facility Hospital Discharge instructions No data available for this section [facility] [place] Progress note Note Date & Type Note Facility Progress note No data available for this section [facility] [place] Summary Purpose Family History No Family History Records Found No data available for this section No Family History Records Found Advance Directives No Advanced Directives Records FoundNo Advanced Directives Records Found Additional Source Comments (unrecognized sect ion and content) No Status Records FoundNo Status Records Found INFORMATION SOURCE (unrecogn ized section and content) DATE CREATED AUTHOR 01/02/2023 [facility] DATE CREATED AUTHOR AUTHOR'S ORGANIZ ATION 08/22/2023 [facility] Patient Care team informatio n (unrecognized section and content) Personnel Name: Anabela Garnett MD Address: Address: [address] [place] [address] FOR RECORDS PERTAINING TO PATIENTS WHO ARE OR HAVE BEEN ENROLLED IN A CHEMICAL DEPENDENCY/SUBSTANCEABUSE PROGRAM, SOME INFORMATION MAY BE OMITTED. This clinical summary was aggregated from multiple sources. Caution should be exercised in using it in the provision of clinical care. This summary normalizes information from multiple sources, and as a consequence, information in this document may materially change the coding, format and clinical context of patient data. In addition, data may be omitted in some cases. CLINICAL DECISIONS SHOULD BE BASED ON THE PRIMARY CLINICAL RECORDS. [employer] [facility]. provides no warranty or guarantee of the accuracy or completeness of information in this document.
[2023-10-01 06:44] VITALS: BP 141/92; PULSE 87; RESP 18; TEMP 36.1; O2SAT 97; BMI 33.6
[2023-10-01] MEDS: LACTATED RINGER'S SOLUTION 1,000 ML 50 ML IV (07:02)
[2023-10-01 07:46] VITALS: BP 148/104; PULSE 66; RESP 14; O2SAT 96
--- NOTE | 2023-10-01 07:59 | PC.NURSE ---
Retching and emesis of yellow bile
[2023-10-01 08:02] VITALS: BP 121/87; PULSE 74; RESP 16; O2SAT 96
--- NOTE | 2023-10-01 08:03 | PC.NURSE ---
No further c/o nausea or emesis
== END 2023-10-01 08:20 | disposition home or self-care (01) ==
PROVIDERS: PCP Family Medicine; Visit Provider Surgery
PROC: (CPT 731; principal; 2023-10-01 07:30)
DX: K21.9 Gastro-esophageal reflux disease without esophagitis (principal); R11.10 Vomiting, unspecified; R13.10 Dysphagia, unspecified; K29.70 Gastritis, unspecified, without bleeding; J44.9 Chronic obstructive pulmonary disease, unspecified; F41.1 Generalized anxiety disorder; E66.9 Obesity, unspecified; E78.00 Pure hypercholesterolemia, unspecified; Z68.31 Body mass index [BMI] 31.0-31.9, adult; F17.290 Nicotine dependence, other tobacco product, uncomplicated; R07.89 Other chest pain
CPT/HCPCS: 43239; 88305; 88342; J2704

== ENCOUNTER 2023-12-01 07:34 | Outpatient (OUT) | payer OTHER, SELFPAY ==
--- OUTSIDE RECORDS SUMMARY | 2023-12-01 07:38 | XMS_ITS | CCD ---
Author Name Unknown Address [address] [facility] [address] [facility] [address] [place] [address] Organization [facility] Care Team Providers Care Daytime Caregiver Name Role Phone MARICRUZY ., DR PEÑALOZA Primary Care Unavailable HOY [...] Consulting Unavailable NAWAF GUAMAN Consulting Unavailable Anabela Javed Primary Care Physician [phone] MD Matias Santamaria Attending Provider Matias Santamaria Attending Matias Love Admitting Unavailable Matias SANTAMARIA Attending Unavailable Anabela Javed Referring Unavailable Matias SANTAMARIA Attending Unavailable Matias SANTAMARIA Attending Unavailable Allergies Allergy Classification Reported Allergen(s) Allergy Type Date of Onset Reaction(s) Facility (1 source) No Known Medication Allergies; Translations: [No Known Medication Allergies] Propensity to adverse reactions (disorder) [facility] Repository Medications Current Medications Medication Drug Class(es) [...] Test Name Value Interpretation Reference Range Facility General Surgery Office/Clini c Noteon 11-03-2023 General Surgery Office/Clinic Note Chief Complaint post operative follow up HPI Staff 20 day post operative follow up post EGD with antrum and cardia biopsies. Continues on Protonix. Reports some improvement in GERD sx's. History of Present Illness f/u EGD with antral and gastric cardia biopsies; pathology with mild chronic reactive gastropathy; improvement with Protonix. Review of Systems ROS - Provider Constitutional: no fever, no [...] been reviewed and are negative or noncontributory. Assessment/Plan 1. Gastroesophageal reflux disease (K21.9: Gastro-esophageal reflux disease without esophagitis) continue Protonix; recommend discontinuing all nicotine products; call with problems/questions. Follow-up With When Contact Information REI KINGSLEY, Matias Whitten, JENNIFER Only if needed [address] [place] [address]- Additional Instructions: Problem List/Past Medical History Ongoing BMI 31.0-31.9,adult Chest pressure Chronic obstructive pulmonary disease Gastroesophageal reflux disease Generalized anxiety disorder Obesity Pure hypercholesterolemia Regurgitation of food Historical No qualifying data Procedure/Surgical History EGD - esophagogastroduodenoscopy (10/01/2023), Closed fracture of right femur. Medications hydrOXYzine [...] vaccine, inactivated - Not Given Patient Refuses Normal [facility] Comment on above: Result Comment: Elec tronically Signed By: REI KINGSLEY, Matias Whitten\.br\Date and Time Signed: 11/03/23 16:29 EST Ambulatory Visit Summaryon 0 10-21-2023 Ambulatory Visit Summary PAT BAIRES :1985 Visit Date:10/21/2023 Ambulatory Visit Instructions Your Care Team Attending Physician - REI KINGSLEY, Matias Whitten Primary Care Physician - Anabela Javed MD This Is Your Medications List desvenlafaxine (Pristiq 50 mg Tab-ER) hydrOXYzine (hydrOXYzine hydrochloride 25 mg Tab) pantoprazole (Protonix 40 mg Tab-DR) simvastatin (simvastatin 40 mg Tab) Procedures Performed EGD - esophagogastroduodenoscopy (10/01/2023), Closed fracture of right femur. Medications What How Much When Instructions Unchanged desvenlafaxine (Pristiq 50 mg Tab-ER) Unchanged hydrOXYzine (hydrOXYzine hydrochloride 25 mg Tab) 1 Tablets By Mouth 4 times a day Unchanged pantoprazole (Protonix 40 mg Tab-DR) 1 Tablets By Mouth Every day Unchanged simvastatin (simvastatin 40 mg Tab) 1 Tablets By Mouth Once a day (in the evening) Allergies No Known Allergies No Known Medication Allergies Problems Ongoing - Any problem that you are currently receiving treatment for. BMI 31.0-31.9,adult Chest pressure Chronic obstructive pulmonary disease Gastroesophageal reflux disease Generalized anxiety disorder Obesity Pure hypercholesterolemia Regurgitation of food Patient Survey You may receive a survey via text or e-mail asking about your office visit. Please share your experience with us by completing your survey. We appreciate your feedback and thank you for choosing us for your care. [facility] Operative Reporton Operative Report [id number]#1.00TIFF [facility] Pathology Noteon 10-09-2023 Pathology Note [id number]#1.00TIFF [facility] Richard 10-01-2023 L Specimen: [id number] Re ceived: 10/01/23 Status: SOUT Req Num: [id number] Spec Type: Surgical Subm Dr: Matias Santamaria MD FACS Tissues: A Stomach - Biopsy/Polyp (ANTRUM) B Stomach - Biopsy/Polyp (CARDIA INFLAMM) Procedures: HE/4, Gross/Micro L4/2 Age/ Patient Sex Location Account Attending Physician Pat Baires 38/M LABELL [id number] Matias Santamaria MD FACS SPEC NUM: [id number] RECD: 10/01/23 STATUS: CHALINO GONZALEZ NUM: [id number] REYNALDO: 10/01/23 [facility] DR: Matias Santamaria MD FACS ENTERED: 10/01/[address] [facility] [address]: Estiven Obregon SPEC TYPE: Surgical DEPT: LARRY RODRIGUEZ ORDERED: HE/4, Gross/Micro L4/2 ORDERED: HE/4, Gross/Micro L4/2 Pathological Diagnosis A. Gastric antrum biopsy: - Antral mucosa with mild chronic reactive gastropathy, including slightly widened stroma with mildly associated petechial congestions, otherwise without intestinal metaplasia, erosion, or any significant stromal chronic inflammation observed - H. pylori immunostain with appropriate control is also negative for identified Helicobacter organism or infection B. Cardiac biopsy: - Benign oxyntic type glandular mucosa without any intestinal metaplasia, glandular dysplasia, or any abnormal stromal chronic inflammation, or any other significant histopathological changes observed Clinical Information Antral gastritis, inflammation Cardia Gross Description A. Received in formalin labeled with the patient's name, date of and antrum are two brooks tissues fragments, 0.3 and 0.5 cm in greatest dimensions. Entirely submitted in one cassette labeled A1. B. Received in formalin labeled with the patient's name, date of and cardia are two -------- Specimen: [id number] Received: 10/01/23 Status: CHALINO Gonzalez Num: [id number] Spec Type: Surgical Subm Dr: Matias Santamaria MD FACS Tissues: A Stomach - Biopsy/Polyp (ANTRUM) B Stomach - Biopsy/Polyp (CARDIA INFLAMM) Procedures: HE/4, Gross/Micro L4/2 -------- Patient: CorycarolinaPat [id number] (Continued) -------- Specimen: [id number] Received: 10/01/23 (Continued) Gross Description (Continued) Signed (signature on file) Davion Morris MD 10/03/23 0927 -------- Specimen: [id number] Received: 10/01/23 Status: CHALINO Gonzalez Num: [id number] Spec Type: Surgical Subm Dr: Matias Santamaria MD FACS Tissues: A Stomach - Biopsy/Polyp (ANTRUM) B Stomach - Biopsy/Polyp (CARDIA INFLAMM) Procedures: ARDEN/Damien, Gross/Micro L4/2 -------- Patient: Pat Baires [id number] (Continued) -------- Specimen: [id number] Received: 10/01/23 (Continued) Gross Description (Continued) brooks tissues fragments, 0.3 and 0.5 cm in greatest dimensions. Entirely submitted in one cassette labeled B1. CPT Codes [id number] x 1 -------- -------- Specimen: [id number] Received: 10/01/23 Status: CHALINO Gonzalez Num: [id number] Spec Type: Surgical Subm Dr: Matias Santamaria MD FACS Tissues: A Stomach - Biopsy/Polyp (ANTRUM) B Stomach - Biopsy/Polyp (CARDIA INFLAMM) Procedures: HE/4, Gross/Micro L4/2 -------- Patient: Pat Baires [id number] (Continued) -------- Signed (signature on file) Zoltan-Nixon Morris MD 10/03/23 0927 [facility] Insurance Correspondenceon 0 09-24-2023 Insurance Correspondence [id number]#1.00TIFF [facility] Consent for Procedure/Surger yon 08-21-2023 Consent for Procedure/Surgery [id number]#1.00TIFF [facility] Facesheeton 08-20-2023 Facesheet [id number]#1.00TIFF [facility] Ambulatory Visit Summaryon 1 10-20-2022 Ambulatory Visit Summary PAT BAIRES :1985 Visit Date:08/19/2023 Ambulatory Visit Instructions Your Care Team Attending Physician - REI KINGSLEY, Matias Whitten Primary Care Physician - Tello KINGSLEY, Anabela Referring Physician - Anabela Javed MD This Is Your Medications List desvenlafaxine [...] you for choosing us for your care. [facility] Consultation Noteon 07-03-20 23 Consultation Note [id number]#1.00TIFF [facility] Physician Referralon 023 Physician Referral [id number]#1.00TIFF [facility] CT ABDOMEN W CONon [address] ABDOM[address] W CON CT ABDOMEN W CON, 7:37 AM EDT INDICATION: Epigastric pain COMPARISON: [...] by: NAWAF GUAMAN Date: 2022-12-30 15:43 Normal [facility] HEMOGLOBINon 12-30-2022 Hemoglobin (Bld) [Mass/Vol] 13.5 g/dL Critically low 14.0-18.0 [facility] Comment on above: Performed By: #### H GB ####[facility] [address] [place] [id number] Morris XR GI UPPER AIR KUB DUAL [...] MARY ELLEN FISHER Date: 2022-09-24 12:25 Normal [facility] H PYLORI ANTIBODY IGGon 08-16 H. PYLORI IGG ABS 0.12 Index Value Normal 0.00-0.79 [facility] Comment on above: Result Comment: Nega tive <0.80 Equivocal 0.80 - 0.89 Positive >0.89 Performed By: #### H PYLLC ####[facility] [address] [address]Dr. Lanre Morris AMYLASEon 09-10-2022 Amylase [Catalytic activity/Vol] 64 U/L Normal 25-115 [facility] Comment on above: Performed By: #### C MP, LIPA, ADAL, LIPID, DBIL #### [facility] [address] [address] [address] Lanre Morris BILIRUBIN CONJUGATED (DIRECT )on 09-10-2022 BILI, CONJUGATED 0.1 mg/dL Normal 0.0-0.2 [facility] Comment on above: Performed By: #### C MP, LIPA, ADAL, LIPID, DBIL #### [facility] [address] [place] [address] Dr. Lanre Morris LIPASEon 09-10-2022 Lipase [Catalytic activity/Vol] 63.0 U/L Critically low 73.0-393.0 [facility] Comment on above: Performed By: #### C MP, LIPA, ADAL, LIPID, DBIL #### [facility] [address] [place] [address] Dr. Lanre Morris LIPID PROFILEon 09-10-2022 CHOL-HDL RATIO NORM SEE BELOW Normal [facility] Comment on above: Result Comment: 3.3 - 4.4 LOW RISK 4.4 - 7.1 AVERAGE RISK 7.1 - 11.0 MODERATE RISK >11.0 HIGH RISK Performed By: #### C MP, LIPA, ADAL, LIPID, DBIL #### [facility] [address] [place] [address] Dr. Lanre Morris Cholesterol [Mass/Vol] 210 mg/dL Critically high <=200 [facility] Comment on above: Performed By: #### C MP, LIPA, ADAL, LIPID, DBIL #### [facility] [address] [place] [address] Dr. Lanre Morris Cholesterol in HDL [Mass/Vol] 45 mg/dL Normal 40-60 [facility] Comment on above: Performed By: #### C MP, LIPA, ADAL, LIPID, DBIL #### [facility] [address] [place] [address] Dr. Lanre Morris Cholesterol in LDL [Mass/Vol] 126.8 mg/dL Normal [facility] Comment on above: Performed By: #### C MP, LIPA, ADAL, LIPID, DBIL #### [facility] [address] [place] [address] Dr. Lanre Morris Cholesterol.total/C holesterol in HDL [Mass ratio] 4.7 {ratio} Normal [facility] Comment on above: Performed By: #### C MP, LIPA, ADAL, LIPID, DBIL #### [facility] [address] [address] [address] Lanre Morris HDL NORMAL > or = 60 mg/dl - LO W CARDIOVASCULAR RISK <40 mg/dl - HIGH CARDIOVASCULAR RISK Normal [facility] Comment on above: Performed By: #### C MP, LIPA, ADAL, LIPID, DBIL #### [facility] [address] [address] [address] Lanre Morris LDL CALC NORMAL SEE BELOW Normal [facility] Comment on above: Result Comment: <100 mg/dl OPTIMAL 100 - 129 mg/dl NEAR OR ABOVE OPTIMAL 130 - 159 mg/dl BORDERLINE HIGH 160 - 189 mg/dl HIGH >190 mg/dl VERY HIGH Performed By: #### C MP, LIPA, ADAL, LIPID, DBIL #### [facility] [address] [address] [address] Lanre Morris Triglyceride [Mass/Vol] 191 mg/dL Critically high <=150 [facility] Comment on above: Performed By: #### C MP, LIPA, ADAL, LIPID, DBIL #### [facility] [address] [place] [address] Dr. Lanre Morris VLDL CALC 38.2 mg/dL Normal [facility] Comment on above: Performed By: #### C MP, LIPA, ADAL, LIPID, DBIL #### [facility] [address] [place] [address] Dr. Lanre Morris PROF 14(COMP METB)on 022 Albumin [Mass/Vol] 4.2 g/dL Normal 3.4-5.0 [facility] Comment on above: Performed By: #### C MP, LIPA, ADAL, LIPID, DBIL #### [facility] [address] [place] [address] Dr. Lanre Morris Albumin/Globulin [Mass ratio] 1.2 {ratio} Normal [facility] Comment on above: Performed By: #### C MP, LIPA, ADAL, LIPID, DBIL #### [facility] [address] [place] [address] Dr. Lanre Morris ALP [Catalytic activity/Vol] 67 U/L Normal 46-116 [facility] Comment on above: Performed By: #### C MP, LIPA, ADAL, LIPID, DBIL #### [facility] [address] [place] [address] Dr. Lanre Morris ALT [Catalytic activity/Vol] 29 U/L Normal 16-63 [facility] Comment on above: Performed By: #### C MP, LIPA, ADAL, LIPID, DBIL #### [facility] [address] [place] [address] Dr. Lanre Morris Anion gap [Moles/Vol] 9.7 mmol/L Normal [facility] Comment on above: Performed By: #### C MP, LIPA, ADAL, LIPID, DBIL #### [facility] [address] [place] [address] Dr. Lanre Morris AST [Catalytic activity/Vol] 18 U/L Normal 15-37 [facility] Comment on above: Performed By: #### C MP, LIPA, ADAL, LIPID, DBIL #### [facility] [address] [place] [address] Dr. Lanre Morris Bilirubin [Mass/Vol] 0.4 mg/dL Normal 0.2-1.0 [facility] Comment on above: Performed By: #### C MP, LIPA, ADAL, LIPID, DBIL #### [facility] [address] [place] [address] Dr. Lanre Morris Calcium [Mass/Vol] 9.6 mg/dL Normal 8.5-10.1 [facility] Comment on above: Performed By: #### C MP, LIPA, ADAL, LIPID, DBIL #### [facility] [address] [place] [address] Dr. Lanre Morris Chloride [Moles/Vol] 101 mmol/L Normal 98-107 [facility] Comment on above: Performed By: #### C MP, LIPA, ADAL, LIPID, DBIL #### [facility] [address] [place] [address] Dr. Lanre Morris CO2 [Moles/Vol] 32.7 mmol/L Critically high 21.0-32.0 [facility] Comment on above: Performed By: #### C MP, LIPA, ADAL, LIPID, DBIL #### [facility] [address] [place] [address] Dr. Lanre Morris Creatinine [Mass/Vol] 0.92 mg/dL Normal 0.70-1.30 [facility] Comment on above: Performed By: #### C MP, LIPA, ADAL, LIPID, DBIL #### [facility] [address] [place] [address] Dr. Lanre Morris EGFR-AF ALGERIAN >60 Normal >=60 [facility] Comment on above: Performed By: #### C MP, LIPA, ADAL, LIPID, DBIL #### [facility] [address] [place] [address] Dr. Lanre Morris EGFR-NON AF ALGERIAN >60 Normal >=60 [facility] Comment on above: Performed By: #### C MP, LIPA, ADAL, LIPID, DBIL #### [facility] [address] [place] [address] Dr. Lanre Morris Globulin (S) [Mass/Vol] 3.5 g/dL Normal [facility] Comment on above: Performed By: #### C MP, LIPA, ADAL, LIPID, DBIL #### [facility] [address] [place] [address] Dr. Lanre Morris Glucose [Mass/Vol] 94 mg/dL Normal 74-106 [facility] Comment on above: Performed By: #### C MP, LIPA, ADAL, LIPID, DBIL #### [facility] [address] [place] [address] Dr. Lanre Morris Potassium [Moles/Vol] 4.4 mmol/L Normal 3.5-5.1 [facility] Comment on above: Performed By: #### C MP, LIPA, ADAL, LIPID, DBIL #### [facility] [address] [place] [address] Dr. Lanre Morris Protein [Mass/Vol] 7.7 g/dL Normal 6.4-8.2 [facility] Comment on above: Performed By: #### C MP, LIPA, ADAL, LIPID, DBIL #### [facility] [address] [address] [address] Lanre Morris Sodium [Moles/Vol] 139 mmol/L Normal 136-145 [facility] Comment on above: Performed By: #### C MP, LIPA, ADAL, LIPID, DBIL #### [facility] [address] [address] [address] Lanre Morris Urea nitrogen [Mass/Vol] 10.0 mg/dL Normal 7.0-18.0 [facility] Comment on above: Performed By: #### C MP, LIPA, ADAL, LIPID, DBIL #### [facility] [address] [address] [address] Lanre Morris Urea nitrogen/Creatinine [Mass ratio] 10.9 mg/mg Normal [facility] Comment on above: Performed By: #### C MP, LIPA, ADAL, LIPID, DBIL #### [facility] [address] CHEST W CONon [...] MARY ELLEN FISHER Date: 2022-05-03 16:49 Normal [facility] INSULINon 04-30-2022 Insulin 11.5 uIU/mL Normal 2.6-24.9 [facility] Comment on above: Performed By: #### I NSULIN ####[facility] [address] [address]Dr. Lanre Morris T4, T3U, FTI LABCORPon 04-30 Free Thyroxine Index 1.9 Normal 1.2-4.9 [facility] Comment on above: Performed By: #### T HYLC ####[facility] [address] [address]Dr. Lanre Morris T3 Uptake 27 % Normal 24-39 [facility] Comment on above: Performed By: #### T HYLC ####[facility] [address] [place], [place] [address]Dr. Lanre Morris T4 [Mass/Vol] 6.9 ug/dL Normal 4.5-12.0 [facility] Comment on above: Performed By: #### T HYLC ####[facility] [address] [place], [place] [address]Dr. Lanre Morris TESTOSTERONE, TOTALon 2021 Testosterone [Mass/Vol] 559 ng/dL Normal 264-916 [facility] Comment on above: Result Comment: Adul t male reference interval is based on a population of healthy nonobese males (BMI <30) between 19 and 39 years old. vadim Cleary.al. JCEM 2017,102;2826-9169. PMID: [id number]. Performed By: #### T ESTTOT ####[facility] [address] [place], [place] [address]Dr. Lanre Morris CBC AUTO DIFFon 04-29-2022 BASO # 0.1 103/ul Normal 0.0-0.1 [facility] Comment on above: Performed By: #### C BC ####[facility] [address] [address]Dr. Lanre Morris Basophils/100 WBC (Bld) 0.8 % Normal 0.2-2.0 [facility] Comment on above: Performed By: #### C BC ####[facility] [address] [id number]. Lanre Morris EO # 0.4 103/ul Normal 0.0-0.7 [facility] Comment on above: Performed By: #### C BC ####[facility] [address] [address]Dr. Lanre Morris Eosinophils/100 WBC (Bld) 4.9 % Normal 0.9-7.0 [facility] Comment on above: Performed By: #### C BC ####[facility] [address] [address]Dr. Lanre Morris Erythrocyte distribution width (RBC) [Ratio] 13.7 % Normal 11.0-15.0 [facility] Comment on above: Performed By: #### C BC ####[facility] [address] [place], [place] [address]Dr. Lanre Morris Hematocrit (Bld) [Volume fraction] 44.3 % Normal 42.0-54.0 [facility] Comment on above: Performed By: #### C BC ####[facility] [address] [address]Dr. Lanre Morris Hemoglobin (Bld) [Mass/Vol] 15.0 g/dL Normal 14.0-18.0 [facility] Comment on above: Performed By: #### C BC ####[facility] [address] [address]Dr. Lanre Morris IG # 0.04 10e3/ul Critically high 0.00-0.03 [facility] Comment on above: Performed By: #### C BC ####[facility] [address] [address]Dr. Lanre Morris IG % 0.5 % Normal 0.0-0.5 [facility] Comment on above: Performed By: #### C BC ####[facility] [address] [address]Dr. Justineshayy Morris LYMPH # 2.7 103/ul Normal 1.2-3.8 [facility] Comment on above: Performed By: #### C BC ####[facility] [address] [place] [id number]. Lanre Arturo Lymphocytes/100 WBC (Bld) 35.2 % Normal 20.5-60.0 [facility] Comment on above: Performed By: #### C BC ####[facility] [address] [address]Dr. Lanre Arturo MANUAL DIFF REQ NO Normal [facility] Comment on above: Performed By: #### C BC ####[facility] [address] [address]Dr. Lanre Arturo MCH (RBC) [Entitic mass] 29.8 pg Normal 25.9-34.0 [facility] Comment on above: Performed By: #### C BC ####[facility] [address] [place] [address]Dr. Lanre Arturo MCHC (RBC) [Mass/Vol] 33.9 g/dL Normal 29.9-35.2 [facility] Comment on above: Performed By: #### C BC ####[facility] [address] [place], [place] [address]Dr. Justineshayy Morris MCV (RBC) [Entitic vol] 88.1 fL Normal 80.0-94.0 [facility] Comment on above: Performed By: #### C BC ####[facility] [address] [place], [place] [address]Dr. Lanre Morris MONO # 0.6 103/ul Normal 0.3-0.8 [facility] Comment on above: Performed By: #### C BC ####[facility] [address] [address]Dr. Justineshayy Morris Monocytes/100 WBC (Bld) 8.4 % Normal 1.7-12.0 [facility] Comment on above: Performed By: #### C BC ####[facility] [address] [place], [place] [address]Dr. Lanre Morris NEUT # 3.8 103/ul Normal 1.4-6.5 [facility] Comment on above: Performed By: #### C BC ####[facility] [address] [place] [id number]. Lanre Morris Neutrophils/100 WBC (Bld) 50.2 % Normal 43.0-75.0 [facility] Comment on above: Performed By: #### C BC ####[facility] [address] [place] [id number]. Lanre Morris Platelet mean volume (Bld) [Entitic vol] 9.6 fL Normal 9.5-13.5 [facility] Comment on above: Performed By: #### C BC ####[facility] [address] [id number]. Lanre Morris PLT 363 103/ul Normal 150-450 [facility] Comment on above: Performed By: #### C BC ####[facility] [address] [place] [address]Dr. Lanre Morris RBC 5.03 106/ul Normal 4.70-6.10 [facility] Comment on above: Performed By: #### C BC ####[facility] [address] [address]Dr. Lanre Morris WBC 7.6 103/ul Normal 4.0-11.0 [facility] Comment on above: Performed By: #### C BC ####[facility] [address] [place], [place] [id number]. Lanre Morris GLYCOHEMOGLOBIN A1Con 2021 ADA RECOMMENDATION SEE BELOW Normal [facility] [facility] Comment on above: Result Comment: ADA RECOMMENDED LIMIT 4.0 - 6.0 ADA THERAPEUTIC TARGET < 7.0 ACTION SUGGESTED > 7.0 Performed By: #### A 1C ####[facility] [id number] [place] [id number]. Lanre Morris Glucose [Mass/Vol] 108 mg/dL Normal [facility] Comment on above: Performed By: #### A 1C ####[facility] [id number] [place] [address]Dr. Lanre Morris HbA1c (Bld) [Mass fraction] 5.4 % Normal 4.5-6.2 [facility] Comment on above: Performed By: #### A 1C ####[facility] [id number] [place], [place] [address]Dr. Lanre Morris LIPID PROFILEon 04-29-2022 CHOL-HDL RATIO NORM SEE BELOW Normal [facility] Comment on above: Result Comment: 3.3 - 4.4 LOW RISK 4.4 - 7.1 AVERAGE RISK 7.1 - 11.0 MODERATE RISK >11.0 HIGH RISK Performed By: #### C MP, LIPID, TSH #### [facility] [address] [address] [address] Lanre Morris Cholesterol [Mass/Vol] 254 mg/dL Critically high <=200 [facility] Comment on above: Performed By: #### C MP, LIPID, TSH #### [facility] [address] [address] [address] Lanre Morris Cholesterol in HDL [Mass/Vol] 44 mg/dL Normal 40-60 [facility] Comment on above: Performed By: #### C MP, LIPID, TSH #### [facility] [address] [address] [address] Lanre Morris Cholesterol in LDL [Mass/Vol] 173.6 mg/dL Normal [facility] Comment on above: Performed By: #### C MP, LIPID, TSH #### [facility] [address] [address] [address] Lanre Morris Cholesterol.total/C holesterol in HDL [Mass ratio] 5.8 {ratio} Normal [facility] Comment on above: Performed By: #### C MP, LIPID, TSH #### [facility] [address] [address] [address] Lanre Morris HDL NORMAL > or = 60 mg/dl - LO W CARDIOVASCULAR RISK <40 mg/dl - HIGH CARDIOVASCULAR RISK Normal [facility] Comment on above: Performed By: #### C MP, LIPID, TSH #### [facility] [address] [address] [address] Lanre Morris LDL CALC NORMAL SEE BELOW Normal [facility] Comment on above: Result Comment: <100 mg/dl OPTIMAL 100 - 129 mg/dl NEAR OR ABOVE OPTIMAL 130 - 159 mg/dl BORDERLINE HIGH 160 - 189 mg/dl HIGH >190 mg/dl VERY HIGH Performed By: #### C MP, LIPID, TSH #### [facility] [address] [address] [address] Lanre Morris Triglyceride [Mass/Vol] 182 mg/dL Critically high <=150 [facility] Comment on above: Performed By: #### C MP, LIPID, TSH #### [facility] [address] [address] [address] Lanre Morris VLDL CALC 36.4 mg/dL Normal [facility] Comment on above: Performed By: #### C MP, LIPID, TSH #### [facility] [address] [address] [address] Lanre Morris PROF 14(COMP METB)on 022 Albumin [Mass/Vol] 4.3 g/dL Normal 3.4-5.0 [facility] Comment on above: Performed By: #### C MP, LIPID, TSH #### [facility] [address] [place] [address] Dr. Lanre Morris Albumin/Globulin [Mass ratio] 1.3 {ratio} Normal [facility] Comment on above: Performed By: #### C MP, LIPID, TSH #### [facility] [address] [place] [address] Dr. Lanre Morris ALP [Catalytic activity/Vol] 58 U/L Normal 46-116 [facility] Comment on above: Performed By: #### C MP, LIPID, TSH #### [facility] [address] [place] [address] Dr. Lanre Morris ALT [Catalytic activity/Vol] 21 U/L Normal 16-63 [facility] Comment on above: Performed By: #### C MP, LIPID, TSH #### [facility] [address] [place] [address] Dr. Lanre Morris Anion gap [Moles/Vol] 11.3 mmol/L Normal [facility] Comment on above: Performed By: #### C MP, LIPID, TSH #### [facility] [address] [place] [address] Dr. Lanre Morris AST [Catalytic activity/Vol] 12 U/L Critically low 15-37 [facility] Comment on above: Performed By: #### C MP, LIPID, TSH #### [facility] [address] [place] [address] Dr. Lanre Morris Bilirubin [Mass/Vol] 0.3 mg/dL Normal 0.2-1.0 [facility] Comment on above: Performed By: #### C MP, LIPID, TSH #### [facility] [address] [place] [address] Dr. Lanre Morris Calcium [Mass/Vol] 9.3 mg/dL Normal 8.5-10.1 [facility] Comment on above: Performed By: #### C MP, LIPID, TSH #### [facility] [address] [place] [address] Dr. Lanre Morris Chloride [Moles/Vol] 102 mmol/L Normal 98-107 [facility] Comment on above: Performed By: #### C MP, LIPID, TSH #### [facility] [address] [place] [address] Dr. Lanre Morris CO2 [Moles/Vol] 29.8 mmol/L Normal 21.0-32.0 [facility] Comment on above: Performed By: #### C MP, LIPID, TSH #### [facility] [address] [place] [address] Dr. Lanre Morris Creatinine [Mass/Vol] 0.99 mg/dL Normal 0.70-1.30 [facility] Comment on above: Performed By: #### C MP, LIPID, TSH #### [facility] [address] [place] [address] Dr. Lanre Morris EGFR-AF ALGERIAN >60 Normal >=60 [facility] Comment on above: Performed By: #### C MP, LIPID, TSH #### [facility] [address] [place] [address] Dr. Lanre Morris EGFR-NON AF ALGERIAN >60 Normal >=60 [facility] Comment on above: Performed By: #### C MP, LIPID, TSH #### [facility] [address] [place] [address] Dr. Lanre Morris Globulin (S) [Mass/Vol] 3.3 g/dL Normal [facility] Comment on above: Performed By: #### C MP, LIPID, TSH #### [facility] [address] [place] [address] Dr. Lanre Morris Glucose [Mass/Vol] 112 mg/dL Critically high 74-[address] [facility] Comment on above: Performed By: #### C MP, LIPID, TSH #### [facility] [address] [place] [address] Dr. Lanre Morris Potassium [Moles/Vol] 4.1 mmol/L Normal 3.5-5.1 [facility] Comment on above: Performed By: #### C MP, LIPID, TSH #### [facility] [address] [place] [address] Dr. Lanre Morris Protein [Mass/Vol] 7.6 g/dL Normal 6.4-8.2 [facility] Comment on above: Performed By: #### C MP, LIPID, TSH #### [facility] [address] [place] [address] Dr. Lanre Morris Sodium [Moles/Vol] 139 mmol/L Normal 136-145 [facility] Comment on above: Performed By: #### C MP, LIPID, TSH #### [facility] [address] [place] [address] Dr. Lanre Morris Urea nitrogen [Mass/Vol] 9.0 mg/dL Normal 7.0-18.0 [facility] Comment on above: Performed By: #### C MP, LIPID, TSH #### [facility] [address] [place] [address] Dr. Lanre Morris Urea nitrogen/Creatinine [Mass ratio] 9.1 mg/mg Normal [facility] Comment on above: Performed By: #### C MP, LIPID, TSH #### [facility] [address] [place] [address] Dr. Lanre Morris TSHon 04-29-2022 TSH 1.103 uIU/mL Normal 0.358-3.740 [facility] Comment on above: Performed By: #### C MP, LIPID, TSH ####[facility] [id number] [place], [place] [address]Ku. Lanre Morris Vital Signs Date Time Vital Sign Value Performing Clinician Emil eagle 08-19-2023 15:36-0500 Blood Pressure Location Matias SANTAMARIA [facility] 08-19-2023 15:36-0500 Diastolic blood pressure 90 mm[Hg] Matias SANTAMARIA [facility] 08-19-2023 15:36-0500 Heart rate 76 /min Matias SOTOL [facility] 08-19-2023 15:36-0500 Respiratory rate 16 /min Matias SANTAMARIA [facility] 08-19-2023 15:36-0500 Systolic blood pressure 136 mm[Hg] Matias SANTAMARIA [facility] Encounters Encounter Date Encounter Type Care Provider Facility Start: 10-21-2023 End: 10-22-2023 [facility] Start: 10-01-2023 End: 10-01-2023 ambulatory Matias Santamaria Facility:[facility] Start: 10-01-2023 End: 10-02-2023 ambulatory Matias SANTAMARIA [facility] Work Phone: Start: 10-01-2023 End: 10-01-2023 Departed Referred MD Matias Santamaria Work Phone: [facility] Start: 08-19-2023 End: 08-20-2023 [facility]ulatory [facility] Start: 08-19-2023 End: 08-19-2023 Patient encounter procedure Matias SANTAMARIA [facility] Start: 06-30-2023 ambulatory Matias SANTAMARIA Facility:[facility] Start: 12-30-2022 End: 12-31-[address] ANABELA JAVED . Facility:[facility] Start: 09-24-2022 End: 09-25-[address] ANABELA JAVED . Facility:[facility] Start: 09-10-2022 End: 09-11-[address] ANABELA JAVED . Facility:[facility] Start: 05-03-2022 End: 05-04-[address] ANABELA JAVED . Facility:[facility] Start: 04-30-2022 Encounter for genera l adult medical examination without abnormal findings DR ANABELA JAVED . [facility] Start: 04-29-2022 End: 04-30-[address] ANABELA JAVED . Facility:[facility] Start: 04-29-2022 End: 04-30-2022 Encounter for general adult medical examination without abnormal findings DR ANABELA JAVED . Facility: Procedures Date Procedure Procedure Detail Performing Clinician Start: 04-29-[address] AIDA JAVED . Comment on above: Performed By: #### P [facility] ####[facility] [address] [place], [place] [address]ZtParveen Morris Closed fracture of r ight femur (disorder) Matias SANTAMARIA Immunizations Immunization Date Immunization Notes Care Provider Fa cility NEGATED: Highlighted row has not occurred!08-19-2023 influenza virus vaccine, unspecified formulation Matias SANTAMARIA [facility] Payers Date Payer Category Payer Self-pay 2023 Private Health Insurance [id number] 1985 Unknown [id number] 2.16.84 [id number] 1985 Unknown [id number] 2.16.84 [id number] 1985 Unknown [id number] 2.16.84 [id number] 1985 Unknown [id number] 2.16.84 [id number] 1983 Unknown [id number] 2.16.84 [id number] 1983 Unknown [id number] 2.16.8 [id number] 1983 Unknown [id number] 2.16.8 [id number] 1983 Unknown [id number] 2.16.8 [id number] 1985 Unknown [id number] 2.16.8 [id number] 1961 Private Health Insurance [id number] Social History Date Type Detail Facility Start: 08-19-2023 Tobacco smoking status Ex-smoker (fi nding) [facility] Tobacco smoking status Smokeless tobacco user within last 30 days [facility] Sex Assigned At Male [facility] Start: 1985 Sex Assigned At Male [facility] Functional Status Date Assessment Result Facility 08-19-2023 Functional Status N/A [facility] Clinical Note 08-19-2023 Note Date & Type Note Facility 08-19-2023 Note Chief Complaint consultation for GERD HPI Staff 38 year old male presents on consultation from Dr. Javed for GERD. Reports two year history of [...] vaccine, inactivated - Not Given Patient Refuses [facility] Comment on above: Result Comment: Elec tronically Signed By: REI KINGSLEY, Matias Lorenzo\Date and Time Signed: 08/19/23 16:02 EST Clinical [...] authenticated by: ROSETTA DUPONT Date: 2022-09-10 16:49 [facility] Evaluation + Plan note Note Date & Type Note Facility Evaluation + Plan note No data available for this section [facility] Evaluation note Note Date & Type Note Facility Evaluation note No assessment information availa [facility] Work Phone: Hospital Discharge instructions Note Date & Type Note Facility Hospital Discharge instructions No data available for this section [facility] Progress note Note Date & Type Note Facility Progress note No data available for this section [facility] Summary Purpose Family History No Family History Records Found No data available for this section No Family History Records FoundNo Family History Records Found Advance Directives No Advanced Directives Records FoundNo Advanced Directives Records FoundNo Advanced Directives Records Found Additional Source Comments (unrecognized sect ion and content) No Status Records FoundNo Status Records FoundNo Status Records Found INFORMATION SOURCE (unrecogn ized section and content) DATE CREATED AUTHOR 01/02/2023 [facility] DATE CREATED AUTHOR AUTHOR'S ORGANIZ ATION 11/04/2023 [facility] DATE CREATED AUTHOR AUTHOR'S ORGANIZ ATION 11/04/2023 [facility] Patient Care team informatio n (unrecognized section and content) Team Status: Inactive Member Role Status Dates Matias Santamaria MD FACS Attending Provider Active Start: October 01, 2023 End: October 01, 2023 Goals (unrecognized section and content) Goals may be documented in a n alternate section FOR RECORDS PERTAINING TO PATIENTS WHO ARE [...] BE BASED ON THE PRIMARY CLINICAL RECORDS. [facility] [employer] [facility]. provides no warranty or guarantee of the accuracy or completeness of information in this document.
--- NOTE | 2023-12-01 07:44 | XR_ITS ---
The [address] [address] Patient Name: PAT BAIRES MRN: [id number] date: 1985 Sex: M Assigned Patient Location: LAB Current Patient Location: LAB Accession/Order Number: [id number] Exam Date: 12/01/2023 07:50 Report Date: 12/01/2023 08:15 At the request of: ANABELA GARNETT Procedure: XR cervical spine 5V EXAMINATION: XR cervical spine 5V HISTORY: Cervical Radiculopathy COMPARISON: 03/21/2023 FINDINGS: BONES: Normal alignment with no acute fracture or spondylolisthesis. Moderate degenerative spondylosis C6-C7 DISC SPACES: Disc space narrowing C6-C7 PARASPINOUS: Negative. No paraspinous abnormality is seen. OTHER: Negative. XR/XR cervical spine 5V IMPRESSION: Degenerative changes C6-C7 with loss of cervical lordosis Electronically authenticated by: ROSETTA DUPONT Date: 12/01/2023 08:15
[2023-12-01 07:53] LABS: Basophils Absolute Auto 0.1 10^3/uL (0.0-0.1); Basophils Percent Auto 0.6 % (0.2-2.0); Eosinophils Absolute Auto 0.1 10^3/uL (0.0-0.7); Eosinophils Percent Auto 0.7 % (0.9-7.0); Hematocrit 45.4 % (42.0-54.0); Hemoglobin 14.8 g/dL (14.0-18.0); Immature Granulocytes Abs Auto 0.05 10^3/uL (0.00-0.03); Immature Granulocytes Pct Auto 0.5 % (0.0-0.5); Lymphocytes Absolute Auto 2.8 10^3/uL (1.2-3.8); Lymphocytes Percent Auto 26.2 % (20.5-60.0); Mean Corpuscular HGB Conc 32.6 g/dL (29.9-35.2); Mean Corpuscular Hemoglobin 28.8 pg (25.9-34.0); Mean Corpuscular Volume 88.5 fL (80.0-94.0); Mean Platelet Volume 9.5 fL (9.5-13.5); Monocytes Percent Auto 8.9 % (1.7-12.0); Neutrophils Absolute Auto 6.7 10^3/uL (1.4-6.5); Neutrophils Percent Auto 63.1 % (43.0-75.0); Platelet Count 369 10^3/uL (150-450); Red Blood Count 5.13 10^6/uL (4.70-6.10); White Blood Count 10.7 10^3/uL (4.0-11.0)
[2023-12-01 07:58] LABS: Estimated Average Glucose 105 mg/dL; Glycohemoglobin A1C 5.3 % (4.5-6.2)
[2023-12-01 08:33] LABS: Alanine Aminotransferase 33 U/L (16-63); Albumin Level 3.9 g/dL (3.4-5.0); Alkaline Phosphatase 67 U/L (46-116); Anion Gap 10.4; Aspartate Amino Transferase 15 U/L (15-37); Bilirubin Total 0.5 mg/dL (0.2-1.0); Calcium 9.1 mg/dL (8.5-10.1); Carbon Dioxide 31.8 mmol/L (21.0-32.0); Chloride 101 mmol/L (98-107); Chol HDL Ratio 3.8; Cholesterol 272 mg/dL (<=200); Estimated GFR (African America >60 (>=60); Estimated GFR (Non-African Ame >60 (>=60); Free T3 2.84 pg/mL (2.18-3.98); Globulin 3.8 g/dL; Glucose 103 mg/dL (74-106); HDL Cholesterol 71 mg/dL (40-60); Potassium 4.2 mmol/L (3.5-5.1); Sodium 139 mmol/L (136-145); Thyroid Stimulating Hormone 1.202 uIU/mL (0.358-3.740); Total Protein 7.7 g/dL (6.4-8.2); Triglycerides 136 mg/dL (<=150); VLDL CHOLESTEROL 27.2 mg/dL
== END 2023-12-01 07:35 | disposition home or self-care (01) ==
LOC: LAB 07:35
PROVIDERS: PCP Family Medicine; Visit Provider Family Medicine
DX: Z00.00 Encounter for general adult medical examination without abnormal findings (principal); E78.5 Hyperlipidemia, unspecified; R73.09 Other abnormal glucose; M54.12 Radiculopathy, cervical region; M50.30 Other cervical disc degeneration, unspecified cervical region
CPT/HCPCS: 36415; 72050; 80053; 80061; 83036; 84436; 84443; 84481; 85025

== ENCOUNTER 2024-04-12 10:46 | Outpatient (OUT) | payer OTHER, SELFPAY ==
--- OUTSIDE RECORDS SUMMARY | 2024-04-12 11:04 | XMS_ITS | CCD ---
Author Organization [facility] Care Team Providers Care Accounts Receivable Clerk Name Role Phone MARICRUZY ., DR PEÑALOZA [...] Consulting Unavailable Anabela Javed Primary Care Physician [phone] MD Matias Santamaria Attending Provider [phone] Matias Santamaria Attending Unavailable Matias Santamaria Admitting Unavailable Matias SANTAMARIA Attending Unavailable Anabela Javed Referring Unavailable Matias SANTAMARIA Attending Unavailable Matias SANTAMARIA Attending Unavailable Allergies Allergy Classification Reported Allergen(s) Allergy Type Date of Onset Reaction(s) Facility (1 source) No Known Medication Allergies; Translations: [No Known Medication Allergies] Propensity to adverse reactions (disorder) [facility] Repository Medications Current Medications Medication Drug Class(es) [...] with problems/questions. Follow-up With When Contact Information Matias SANTAMARIA MD, JENNIFER Only if needed [address] [place] [address]- Additional Instructions: Problem List/Past Medical [...] inactivated - Not Given Patient Refuses Normal [facility] Comment on above: Result Comment: Elec tronically Signed By: Matias SANTAMARIA MD\.br\Date and Time Signed: 11/03/23 16:29 EST Ambulatory Visit Summaryon 0 10-21-2023 Ambulatory Visit Summary PAT BAIRES :1985 Visit Date:10/21/2023 Ambulatory Visit Instructions Your Care Team Attending Physician - Matais SANTAMARIA MD Primary Care Physician - Anabela Javed MD [...] you for choosing us for your care. [facility] Operative Reporton Operative Report [id number]#1.00TIFF [facility] Pathology Noteon 10-09-2023 Pathology Note [id number]#1.00TIFF [facility] Richard 10-01-2023 L Specimen: [id number] Re ceived: 10/01/23 Status: CHALINO Re Num: [id number] Spec Type: Surgical Subm Dr: Matias Santamaria MD FACS Tissues: A Stomach - Biopsy/Polyp (ANTRUM) B Stomach - Biopsy/Polyp (CARDIA INFLAMM) Procedures: HE/4, Gross/Micro L4/2 Age/ Patient Sex Location Account Attending Physician Pat Baires 38/M [place] [id number] Matias Santamaria MD FACS SPEC NUM: [id number] RECD: 10/01/23 STATUS: SOUT REQ NUM: [id number] REYNALDO: 10/01/23 [facility] DR: Matias Santamaria MD FACS ENTERED: 10/01/23 [facility] DR: Estiven Obregon SPEC TYPE: Surgical DEPT: [...] [id number] Received: 10/01/23 Status: CHALINO Gonzalez Num: [id number] Spec Type: Surgical Subm Dr: Matias Santamaria MD FACS Tissues: A Stomach - Biopsy/Polyp (ANTRUM) B Stomach - Biopsy/Polyp (CARDIA INFLAMM) Procedures: HE/4, Gross/Micro L4/2 -------- Patient: Pat Baires [id number] (Continued) -------- Specimen: [id number] Received: 10/01/23 (Continued) Gross Description (Continued) Signed (signature on file) Davion Morris MD 10/03/23 0927 -------- Specimen: [id number] Received: 10/01/23 Status: NABILAMaddi Gonzalez Num: [id number] Spec Type: Surgical Subm Dr: Matias Santamaria MD FACS Tissues: A Stomach - Biopsy/Polyp (ANTRUM) B Stomach - Biopsy/Polyp (CARDIA INFLAMM) Procedures: Ayse MCDONALD/Micro L4/2 -------- Patient: Pat Baires [id number] (Continued) -------- Specimen: [id number] Received: 10/01/23 (Continued) Gross Description (Continued) brooks tissues fragments, 0.3 and 0.5 cm in greatest dimensions. Entirely submitted in one cassette labeled B1. CPT Codes 72891g1 [id number] x 1 -------- -------- Specimen: [id number] Received: 10/01/23 Status: CHALINO Gonzalez Num: [id number] Spec Type: Surgical Subm Dr: Matias Santamaria MD FACS Tissues: A Stomach - Biopsy/Polyp (ANTRUM) B Stomach - Biopsy/Polyp (CARDIA INFLAMM) Procedures: HE/4, Gross/Micro L4/2 -------- Patient: Pat Baires [id number] (Continued) -------- Signed (signature on file) Davion Morris MD 10/03/23 0927 [facility] Insurance Correspondenceon 0 09-24-2023 Insurance Correspondence [id number]#1.00TIFF [facility] Consent for Procedure/Surger yon 08-21-2023 Consent for Procedure/Surgery [id number]#1.00TIFF [facility] Facesheeton 08-20-2023 Facesheet [id number]#1.00TIFF [facility] Ambulatory Visit Summaryon 1 10-20-2022 Ambulatory Visit Summary IVANKARY SULEMALUCASCHULA Holt :1985 Visit Date:08/19/2023 Ambulatory Visit Instructions Your Care Team Attending Physician - Matias SANTAMARIA MD Primary Care Physician - Anabela Javed MD Referring Physician - Anabela Javed MD This [...] for choosing us for your care. Normal [facility] Consultation Noteon 07-03-20 23 Consultation Note [id number]#1.00TIFF Normal [facility] Physician Referralon 023 Physician Referral [id number]#1.00TIFF Normal [facility] CT ABDOMEN W CONon 3 CT ABDOMEN [...] by: NAWAF GUAMAN Date: 2022-12-30 15:43 Normal [facility] HEMOGLOBINon 12-30-2022 Hemoglobin (Bld) [Mass/Vol] 13.5 g/dL Critically low 14.0-18.0 [facility] Comment on above: Performed By: #### H GB ####[facility] [address] [place] [id number] Morris XR GI UPPER AIR KUB DUAL [...] MARY ELLEN FISHER Date: 2022-09-24 12:25 Normal [facility] H PYLORI ANTIBODY IGGon 08-16 H. PYLORI IGG ABS 0.12 Index Value Normal 0.00-0.79 [facility] Comment on above: Result Comment: Nega tive <0.80 Equivocal 0.80 - 0.89 Positive >0.89 Performed By: #### H PYLLC ####[facility] [address] [place] [id number]. Lanre Morris AMYLASEon 09-10-2022 Amylase [Catalytic activity/Vol] 64 U/L Normal 25-115 [facility] Comment on above: Performed By: #### C MP, LIPA, ADAL, LIPID, DBIL #### [facility] [address] [place], [place] [address] Dr. Lanre Morris BILIRUBIN CONJUGATED (DIRECT )on 09-10-2022 BILI, CONJUGATED 0.1 mg/dL Normal 0.0-0.2 [facility] Comment on above: Performed By: #### C MP, LIPA, ADAL, LIPID, DBIL #### [facility] [address] [place] [address] [address] Lanre Morris LIPASEon 09-10-2022 Lipase [Catalytic activity/Vol] 63.0 U/L Critically low 73.0-393.0 [facility] Comment on above: Performed By: #### C MP, LIPA, ADAL, LIPID, DBIL #### [facility] [address] [place] [address] Dr. Lanre Morris LIPID PROFILEon 09-10-2022 CHOL-HDL RATIO NORM SEE BELOW Normal [facility] Comment on above: Result Comment: 3.3 - 4.4 LOW RISK 4.4 - 7.1 AVERAGE RISK 7.1 - 11.0 MODERATE RISK >11.0 HIGH RISK Performed By: #### C MP, LIPA, ADAL, LIPID, DBIL #### [facility] [address] [place] [address] Dr. Lanre Morris Cholesterol [Mass/Vol] 210 mg/dL Critically high <=200 [facility] Comment on above: Performed By: #### C MP, LIPA, ADAL, LIPID, DBIL #### [facility] [address] [place] [address] Dr. Lanre Morris Cholesterol in HDL [Mass/Vol] 45 mg/dL Normal 40-60 [facility] Comment on above: Performed By: #### C MP, LIPA, ADAL, LIPID, DBIL #### [facility] [address] [place] [address] Dr. Lanre Morris Cholesterol in LDL [Mass/Vol] 126.8 mg/dL Normal [facility] Comment on above: Performed By: #### C MP, LIPA, ADAL, LIPID, DBIL #### [facility] [address] [place] [address] Dr. Lanre Morris Cholesterol.total/C holesterol in HDL [Mass ratio] 4.7 {ratio} Normal [facility] Comment on above: Performed By: #### C MP, LIPA, ADAL, LIPID, DBIL #### [facility] [address] [place] [address] [address] Lanre Morris HDL NORMAL > or = 60 mg/dl - LO W CARDIOVASCULAR RISK <40 mg/dl - HIGH CARDIOVASCULAR RISK Normal [facility] Comment on above: Performed By: #### C MP, LIPA, ADAL, LIPID, DBIL #### [facility] [address] [place] [address] [address] Lanre Morris LDL CALC NORMAL SEE BELOW Normal [facility] Comment on above: Result Comment: <100 mg/dl OPTIMAL 100 - 129 mg/dl NEAR OR ABOVE OPTIMAL 130 - 159 mg/dl BORDERLINE HIGH 160 - 189 mg/dl HIGH >190 mg/dl VERY HIGH Performed By: #### C MP, LIPA, ADAL, LIPID, DBIL #### [facility] [address] [place] [address] Dr. Lanre Morris Triglyceride [Mass/Vol] 191 mg/dL Critically high <=150 [facility] Comment on above: Performed By: #### C MP, LIPA, ADAL, LIPID, DBIL #### [facility] [address] [place] [address] Dr. Lanre Morris VLDL CALC 38.2 mg/dL Normal [facility] Comment on above: Performed By: #### C MP, LIPA, ADAL, LIPID, DBIL #### [facility] [address] [place] [address] Dr. Lanre Morris PROF 14(COMP METB)on 022 Albumin [Mass/Vol] 4.2 g/dL Normal 3.4-5.0 [facility] Comment on above: Performed By: #### C MP, LIPA, ADAL, LIPID, DBIL #### [facility] [address] [place] [address] Dr. Lanre Morris Albumin/Globulin [Mass ratio] 1.2 {ratio} Normal [facility] Comment on above: Performed By: #### C MP, LIPA, ADAL, LIPID, DBIL #### [facility] [address] [place] [address] Dr. Lanre Morris ALP [Catalytic activity/Vol] 67 U/L Normal 46-116 [facility] Comment on above: Performed By: #### C MP, LIPA, ADAL, LIPID, DBIL #### [facility] [address] [place] [address] Dr. Lanre Morris ALT [Catalytic activity/Vol] 29 U/L Normal 16-63 [facility] Comment on above: Performed By: #### C MP, LIPA, ADAL, LIPID, DBIL #### [facility] [address] [place] [address] Dr. Lanre Morris Anion gap [Moles/Vol] 9.7 mmol/L Normal [facility] Comment on above: Performed By: #### C MP, LIPA, ADAL, LIPID, DBIL #### [facility] [address] [place] [address] Dr. Lanre Morris AST [Catalytic activity/Vol] 18 U/L Normal 15-37 [facility] Comment on above: Performed By: #### C MP, LIPA, ADAL, LIPID, DBIL #### [facility] [address] [place] [address] Dr. Lanre Morris Bilirubin [Mass/Vol] 0.4 mg/dL Normal 0.2-1.0 [facility] Comment on above: Performed By: #### C MP, LIPA, ADAL, LIPID, DBIL #### [facility] [address] [place] [address] Dr. Lanre Morris Calcium [Mass/Vol] 9.6 mg/dL Normal 8.5-10.1 [facility] Comment on above: Performed By: #### C MP, LIPA, ADAL, LIPID, DBIL #### [facility] [address] [place] [address] Dr. Lanre Morris Chloride [Moles/Vol] 101 mmol/L Normal 98-107 [facility] Comment on above: Performed By: #### C MP, LIPA, ADAL, LIPID, DBIL #### [facility] [address] [place] [address] Dr. Lanre Morris CO2 [Moles/Vol] 32.7 mmol/L Critically high 21.0-32.0 [facility] Comment on above: Performed By: #### C MP, LIPA, ADAL, LIPID, DBIL #### [facility] [address] [place] [address] Dr. Lanre Morris Creatinine [Mass/Vol] 0.92 mg/dL Normal 0.70-1.30 [facility] Comment on above: Performed By: #### C MP, LIPA, ADAL, LIPID, DBIL #### [facility] [address] [place] [address] Dr. Lanre Morris EGFR-AF TRISTANIAN >60 Normal >=60 [facility] Comment on above: Performed By: #### C MP, LIPA, ADAL, LIPID, DBIL #### [facility] [address] [place] [address] Dr. Lanre Morris EGFR-NON AF TRISTANIAN >60 Normal >=60 [facility] Comment on above: Performed By: #### C MP, LIPA, ADAL, LIPID, DBIL #### [facility] [address] [place] [address] Dr. Lanre Morris Globulin (S) [Mass/Vol] 3.5 g/dL Normal [facility] Comment on above: Performed By: #### C MP, LIPA, ADAL, LIPID, DBIL #### [facility] [address] [place] [address] Dr. Lanre Morris Glucose [Mass/Vol] 94 mg/dL Normal 74-106 [facility] Comment on above: Performed By: #### C MP, LIPA, ADAL, LIPID, DBIL #### [facility] [address] [place] [address] Dr. Lanre Morris Potassium [Moles/Vol] 4.4 mmol/L Normal 3.5-5.1 [facility] Comment on above: Performed By: #### C MP, LIPA, ADAL, LIPID, DBIL #### [facility] [address] [place] [address] Dr. Lanre Morris Protein [Mass/Vol] 7.7 g/dL Normal 6.4-8.2 [facility] Comment on above: Performed By: #### C MP, LIPA, ADAL, LIPID, DBIL #### [facility] [address] [place] [address] [address] Lanre Morris Sodium [Moles/Vol] 139 mmol/L Normal 136-145 [facility] Comment on above: Performed By: #### C MP, LIPA, ADAL, LIPID, DBIL #### [facility] [address] [place] [address] [address] Lanre Morris Urea nitrogen [Mass/Vol] 10.0 mg/dL Normal 7.0-18.0 [facility] Comment on above: Performed By: #### C MP, LIPA, ADAL, LIPID, DBIL #### [facility] [address] [place] [address] [address] Lanre Morris Urea nitrogen/Creatinine [Mass ratio] 10.9 mg/mg Normal [facility] Comment on above: Performed By: #### C MP, LIPA, ADAL, LIPID, DBIL #### [facility] [address] [place] [address] [address] CHEST W CONon [...] ELLEN FISHER Date: 2022-05-03 16:49 Normal [facility] INSULINon 04-30-2022 Insulin 11.5 uIU/mL Normal 2.6-24.9 [facility] Comment on above: Performed By: #### I NSULIN ####[facility] [address] [place] [id number]. Lanre Morris T4, T3U, FTI LABCORPon 04-30 Free Thyroxine Index 1.9 Normal 1.2-4.9 [facility] Comment on above: Performed By: #### T HYLC ####[facility] [address] [place] [address]Dr. Lanre Morris T3 Uptake 27 % Normal 24-39 [facility] Comment on above: Performed By: #### T HYLC ####[facility] [address] [place] [address]Dr. Lanre Arturo T4 [Mass/Vol] 6.9 ug/dL Normal 4.5-12.0 [facility] Comment on above: Performed By: #### T HYLC ####[facility] [address] [place], [place] [address]Dr. Lanre Arturo TESTOSTERONE, TOTALon 2021 Testosterone [Mass/Vol] 559 ng/dL Normal 264-916 [facility] Comment on above: Result Comment: Adul t male reference interval is based on a population of healthy nonobese males (BMI <30) between 19 and 39 years old. vadim Cleary.al. JCEM 2017,102;0921-9891. PMID: [id number]. Performed By: #### T ESTTOT ####[facility] [address] [place], [place] [address]Dr. Lanre Arturo CBC AUTO DIFFon 04-29-2022 BASO # 0.1 103/ul Normal 0.0-0.1 [facility] Comment on above: Performed By: #### C BC ####[facility] [address] [place] [address]Dr. Lanre Arturo Basophils/100 WBC (Bld) 0.8 % Normal 0.2-2.0 [facility] Comment on above: Performed By: #### C BC ####[facility] [address] [place], [place] [address]Dr. Lanre Morris EO # 0.4 103/ul Normal 0.0-0.7 [facility] Comment on above: Performed By: #### C BC ####[facility] [address] [place], [place] [address]Dr. Lanre Arturo Eosinophils/100 WBC (Bld) 4.9 % Normal 0.9-7.0 [facility] Comment on above: Performed By: #### C BC ####[facility] [address] [place], [place] [address]Dr. Lanre Arturo Erythrocyte distribution width (RBC) [Ratio] 13.7 % Normal 11.0-15.0 [facility] Comment on above: Performed By: #### C BC ####[facility] [address] [place], [place] [address]Dr. Justineshayy Morris Hematocrit (Bld) [Volume fraction] 44.3 % Normal 42.0-54.0 [facility] Comment on above: Performed By: #### C BC ####[facility] [address] [place], [place] [address]Dr. Lanre Morris Hemoglobin (Bld) [Mass/Vol] 15.0 g/dL Normal 14.0-18.0 [facility] Comment on above: Performed By: #### C BC ####[facility] [address] [place], [place] [address]Dr. Justineshayy Morris IG # 0.04 10e3/ul Critically high 0.00-0.03 [facility] Comment on above: Performed By: #### C BC ####[facility] [address] [place], [place] [address]Dr. Lanre Morris IG % 0.5 % Normal 0.0-0.5 [facility] Comment on above: Performed By: #### C BC ####[facility] [address] [place], [place] [address]DrParveen Morris LYMPH # 2.7 103/ul Normal 1.2-3.8 [facility] Comment on above: Performed By: #### C BC ####[facility] [address] [place], [place] [address]DrParveen Morris Lymphocytes/100 WBC (Bld) 35.2 % Normal 20.5-60.0 [facility] Comment on above: Performed By: #### C BC ####[facility] [address] [place], [place] [address]DrParveen Morris MANUAL DIFF REQ NO Normal [facility] Comment on above: Performed By: #### C BC ####[facility] [address] [place] [address]DrParveen Morris MCH (RBC) [Entitic mass] 29.8 pg Normal 25.9-34.0 [facility] Comment on above: Performed By: #### C BC ####[facility] [address] [place], [place] [address]DrParveen Morris MCHC (RBC) [Mass/Vol] 33.9 g/dL Normal 29.9-35.2 [facility] Comment on above: Performed By: #### C BC ####[facility] [address] [place], [place] [address]DrParveen Morris MCV (RBC) [Entitic vol] 88.1 fL Normal 80.0-94.0 [facility] Comment on above: Performed By: #### C BC ####[facility] [address] [place], [place] [address]DrParveen Morris MONO # 0.6 103/ul Normal 0.3-0.8 [facility] Comment on above: Performed By: #### C BC ####[facility] [address] [place], [place] [address]DrParveen Morris Monocytes/100 WBC (Bld) 8.4 % Normal 1.7-12.0 [facility] Comment on above: Performed By: #### C BC ####[facility] [address] [place], [place] [address]DrParveen Morris NEUT # 3.8 103/ul Normal 1.4-6.5 [facility] Comment on above: Performed By: #### C BC ####[facility] [address] [place], [place] [address]DrParveen Morris Neutrophils/100 WBC (Bld) 50.2 % Normal 43.0-75.0 [facility] Comment on above: Performed By: #### C BC ####[facility] [address] [place] [address]Dr. Lanre Morris Platelet mean volume (Bld) [Entitic vol] 9.6 fL Normal 9.5-13.5 [facility] Comment on above: Performed By: #### C BC ####[facility] [address] [place] [address]Dr. Lanre Morris PLT 363 103/ul Normal 150-450 [facility] Comment on above: Performed By: #### C BC ####[facility] [address] [place], [place] [address]Dr. Lanre Morris RBC 5.03 106/ul Normal 4.70-6.10 [facility] Comment on above: Performed By: #### C BC ####[facility] [address] [place], [place] [address]Dr. Lanre Morris WBC 7.6 103/ul Normal 4.0-11.0 [facility] Comment on above: Performed By: #### C BC ####[facility] [address] [place], [place] [address]Dr. Lanre Morris GLYCOHEMOGLOBIN A1Con 2021 ADA RECOMMENDATION SEE BELOW Normal [facility] Comment on above: Result Comment: ADA RECOMMENDED LIMIT 4.0 - 6.0 ADA THERAPEUTIC TARGET < 7.0 ACTION SUGGESTED > 7.0 Performed By: #### A 1C ####[facility] [address] [place] [address]Dr. Lanre Morris Glucose [Mass/Vol] 108 mg/dL Normal [facility] Comment on above: Performed By: #### A 1C ####[facility] [address] [place], [place] [address]Dr. Lanre Morris HbA1c (Bld) [Mass fraction] 5.4 % Normal 4.5-6.2 [facility] Comment on above: Performed By: #### A 1C ####[facility] [address] [place], [place] [address]Dr. Lanre Morris LIPID PROFILEon 04-29-2022 CHOL-HDL RATIO NORM SEE BELOW Normal [facility] Comment on above: Result Comment: 3.3 - 4.4 LOW RISK 4.4 - 7.1 AVERAGE RISK 7.1 - 11.0 MODERATE RISK >11.0 HIGH RISK Performed By: #### C MP, LIPID, TSH #### [facility] [address] [place] [address] [address] Lanre Morris Cholesterol [Mass/Vol] 254 mg/dL Critically high <=200 [facility] Comment on above: Performed By: #### C MP, LIPID, TSH #### [facility] [address] [place] [address] [address] Lanre Morris Cholesterol in HDL [Mass/Vol] 44 mg/dL Normal 40-60 [facility] Comment on above: Performed By: #### C MP, LIPID, TSH #### [facility] [address] [address] [address] Lanre Morris Cholesterol in LDL [Mass/Vol] 173.6 mg/dL Normal [facility] Comment on above: Performed By: #### C MP, LIPID, TSH #### [facility] [address] [place] [address] [address] Lanre Morris Cholesterol.total/C holesterol in HDL [Mass ratio] 5.8 {ratio} Normal [facility] Comment on above: Performed By: #### C MP, LIPID, TSH #### [facility] [address] [address] [address] Lanre Morris HDL NORMAL > or = 60 mg/dl - LO W CARDIOVASCULAR RISK <40 mg/dl - HIGH CARDIOVASCULAR RISK Normal [facility] Comment on above: Performed By: #### C MP, LIPID, TSH #### [facility] [address] [place] [address] Dr. Lanre Morris LDL CALC NORMAL SEE BELOW Normal [facility] Comment on above: Result Comment: <100 mg/dl OPTIMAL 100 - 129 mg/dl NEAR OR ABOVE OPTIMAL 130 - 159 mg/dl BORDERLINE HIGH 160 - 189 mg/dl HIGH >190 mg/dl VERY HIGH Performed By: #### C MP, LIPID, TSH #### [facility] [address] [address] [address] Lanre Morris Triglyceride [Mass/Vol] 182 mg/dL Critically high <=150 [facility] Comment on above: Performed By: #### C MP, LIPID, TSH #### [facility] [address] [place] [address] [address] Lanre Morris VLDL CALC 36.4 mg/dL Normal [facility] Comment on above: Performed By: #### C MP, LIPID, TSH #### [facility] [address] [place] [address] [address] Lanre Morris PROF 14(COMP METB)on 022 Albumin [Mass/Vol] 4.3 g/dL Normal 3.4-5.0 [facility] Comment on above: Performed By: #### C MP, LIPID, TSH #### [facility] [address] [place] [address] [address] Lanre Morris Albumin/Globulin [Mass ratio] 1.3 {ratio} Normal [facility] Comment on above: Performed By: #### C MP, LIPID, TSH #### [facility] [address] [address] [address] Lanre Morris ALP [Catalytic activity/Vol] 58 U/L Normal 46-116 [facility] Comment on above: Performed By: #### C MP, LIPID, TSH #### [facility] [address] [address] [address] Lanre Morris ALT [Catalytic activity/Vol] 21 U/L Normal 16-63 [facility] Comment on above: Performed By: #### C MP, LIPID, TSH #### [facility] [address] [address] [address] Lanre Morris Anion gap [Moles/Vol] 11.3 mmol/L Normal [facility] Comment on above: Performed By: #### C MP, LIPID, TSH #### [facility] [address] [address] [address] Lanre Morris AST [Catalytic activity/Vol] 12 U/L Critically low 15-37 [facility] Comment on above: Performed By: #### C MP, LIPID, TSH #### [facility] [address] [address] [address] Lanre Morris Bilirubin [Mass/Vol] 0.3 mg/dL Normal 0.2-1.0 [facility] Comment on above: Performed By: #### C MP, LIPID, TSH #### [facility] [address] [place] [address] Dr. Lanre Morris Calcium [Mass/Vol] 9.3 mg/dL Normal 8.5-10.1 [facility] Comment on above: Performed By: #### C MP, LIPID, TSH #### [facility] [address] [address] [address] Lanre Morris Chloride [Moles/Vol] 102 mmol/L Normal 98-107 [facility] Comment on above: Performed By: #### C MP, LIPID, TSH #### [facility] [address] [place] [address] Dr. Lanre Morris CO2 [Moles/Vol] 29.8 mmol/L Normal 21.0-32.0 [facility] Comment on above: Performed By: #### C MP, LIPID, TSH #### [facility] [address] [place] [address] Dr. Lanre Morris Creatinine [Mass/Vol] 0.99 mg/dL Normal 0.70-1.30 [facility] Comment on above: Performed By: #### C MP, LIPID, TSH #### [facility] [address] [place] [address] Dr. Lanre Morris EGFR-AF TRISTANIAN >60 Normal >=60 [facility] Comment on above: Performed By: #### C MP, LIPID, TSH #### [facility] [address] [place] [address] Dr. Lanre Morris EGFR-NON AF TRISTANIAN >60 Normal >=60 [facility] Comment on above: Performed By: #### C MP, LIPID, TSH #### [facility] [address] [place] [address] Dr. Lanre Morris Globulin (S) [Mass/Vol] 3.3 g/dL Normal [facility] Comment on above: Performed By: #### C MP, LIPID, TSH #### [facility] [address] [address] [address] Lanre Morris Glucose [Mass/Vol] 112 mg/dL Critically high 74-106 [facility] Comment on above: Performed By: #### C MP, LIPID, TSH #### [facility] [address] [address] [address] Lanre Morris Potassium [Moles/Vol] 4.1 mmol/L Normal 3.5-5.1 [facility] Comment on above: Performed By: #### C MP, LIPID, TSH #### [facility] [address] [place] [address] Dr. Lanre Morris Protein [Mass/Vol] 7.6 g/dL Normal 6.4-8.2 [facility] Comment on above: Performed By: #### C MP, LIPID, TSH #### [facility] [address] [place] [address] Dr. Lanre Morris Sodium [Moles/Vol] 139 mmol/L Normal 136-145 [facility] Comment on above: Performed By: #### C MP, LIPID, TSH #### [facility] [address] [place] [address] Dr. Lanre Morris Urea nitrogen [Mass/Vol] 9.0 mg/dL Normal 7.0-18.0 [facility] Comment on above: Performed By: #### C MP, LIPID, TSH #### [facility] [address] [place] [address] Dr. Lanre Morris Urea nitrogen/Creatinine [Mass ratio] 9.1 mg/mg Normal [facility] Comment on above: Performed By: #### C MP, LIPID, TSH #### [facility] [address] [place] [address] Dr. Lanre Morris TSHon 04-29-2022 TSH 1.103 uIU/mL Normal 0.358-3.740 [facility] Comment on above: Performed By: #### C MP, LIPID, TSH ####[facility] [id number] [address] Lanre Morris Vital Signs Date Time Vital Sign Value Performing Clinician Emil eagle 08-19-2023 15:36-0500 Blood Pressure Location Matias ROSALIO [facility] [place] 08-19-2023 15:36-0500 Diastolic blood pressure 90 mm[Hg] Matias NILL [facility] [place] 08-19-2023 15:36-0500 Heart rate 76 /min Matias NILL [facility] [place] 08-19-2023 15:36-0500 Respiratory rate 16 /min Matias NILL [facility] [place] 08-19-2023 15:36-0500 Systolic blood pressure 136 mm[Hg] Matias NILL [facility] [place] Encounters Encounter Date Encounter Type Care Provider Facility Start: 10-21-2023 End: 10-22-2023 ambulatory Matias R ROSALIO Facility:[facility] Start: 10-01-2023 End: 10-01-2023 ambulatory Matias R Rosalio Facility:[facility] Start: 10-01-2023 End: 10-02-2023 ambulatory Matias SANTAMARIA [facility] Work Phone: Start: 10-01-2023 End: 10-01-2023 Departed Referred MD Matias Santamaria Work Phone: [facility] Start: 08-19-2023 End: 08-20-2023 ambulatory Matias R NILL Facility:[facility] [place] Start: 08-19-2023 End: 08-19-2023 Patient encounter procedure Matias SANTAMARIA [facility] Start: 06-30-2023 ambulatory Matias SANTAMARIA Facility:[facility] Start: 12-30-2022 End: 12-31-[address] ANABELA JAVED . Facility: Start: 09-24-2022 End: 01-11-[address] ANABELA JAVED . Facility:[facility] Start: 09-10-2022 End: 09-11-[address] ANABELA JAVED . Facility:[facility] Start: 05-03-2022 End: 05-04-[address] ANABELA JAVED . Facility:[facility] Start: 04-30-2022 Encounter for genera l adult medical examination without abnormal findings DR ANABELA JAVED . [facility] Start: 04-29-2022 End: 04-30-[address] ANABELA JAVED . Facility:[facility] Start: 04-29-2022 End: 04-30-2022 Encounter for general adult medical examination without abnormal findings DR ANABELA JAVED . Facility:[facility] Procedures Date Procedure Procedure Detail Performing Clinician Start: 04-29-[address] AIDA JAVED . Comment on above: Performed By: #### [facility] ####[facility] [id number] [place], [place] [address]Pk. Lanre Morris Closed fracture of r ight femur (disorder) Matias SANTAMARIA Immunizations Immunization Date Immunization Notes Care Provider Fa cility NEGATED: Highlighted row has not occurred!08-19-2023 influenza virus vaccine, unspecified formulation Matias SANTAMARIA [facility] [place] Payers Date Payer Category Payer Self-pay 2023 Private Health Insurance [id number] 1985 Unknown [id number] 2.16.84 [id number] 1985 Unknown [id number] 2.16.84 [id number] 1985 Unknown [id number] 2.16.84 [id number] 1985 Unknown [id number] .16.84 [id number] 1985 Unknown [id number] 2.16.84 [id number] 1985 Unknown [id number] 2.16.8 [id number] 1985 Unknown [id number] 2.16.8 [id number] 1985 Unknown [id number] 2.16.8 [id number] 1985 Unknown [id number] 2.16.8 [id number] 1961 Private Health Insurance [id number] Social History Date Type Detail Facility Start: 08-19-2023 Tobacco smoking status Ex-smoker (fi nding) [facility] [place] Tobacco smoking status Smokeless tobacco user within last 30 days [facility] [place] Sex Assigned At Male [facility] Start: 1985 Sex Assigned At Male [facility] Functional Status Date Assessment Result Facility 08-19-2023 Functional Status N/A [facility] 08-19-2023 Note Date & Type [...] vaccine, inactivated - Not Given Patient Refuses [facility] Comment on above: Result Comment: Elec tronically Signed By: ROSALIO KINGSLEY, Matias Crowley.marcello\Date and Time Signed: 08/19/23 16:02 EST Clinical [...] by: ROSETTA DUPONT Date: 2022-09-10 16:49 [facility] Evaluation + Plan note Note Date & Type Note Facility Evaluation + Plan note No data available for this section [facility] [place] Evaluation note Note Date & Type Note Facility Evaluation note No assessment information availa agustín [facility] Work Phone: Hospital Discharge instructions Note Date & Type Note Facility Hospital Discharge instructions No data available for this section [facility] [place] Progress note Note Date & Type Note Facility Progress note No data available for this section [facility] [place] Summary Purpose Family History No Family History [...] and content) DATE CREATED AUTHOR 01/02/2023 [facility] DATE CREATED AUTHOR AUTHOR'S ORGANIZ ATION 11/04/2023 [facility] DATE CREATED AUTHOR AUTHOR'S ORGANIZ ATION 11/04/2023 [facility] Patient Care team informatio n (unrecognized section [...] BE BASED ON THE PRIMARY CLINICAL RECORDS. [employer] provides no warranty or guarantee of the accuracy or completeness of information in this document.
[2024-04-12 12:21] LABS: Alanine Aminotransferase 26 U/L (16-63); Albumin Globulin Ratio 1.1; Albumin Level 3.8 g/dL (3.4-5.0); Alkaline Phosphatase 59 U/L (46-116); Aspartate Amino Transferase 15 U/L (15-37); Bilirubin Direct 0.1 mg/dL (0.0-0.2); Bilirubin Total 0.5 mg/dL (0.2-1.0); Chol HDL Ratio 4.5; Cholesterol 233 mg/dL (<=200); Globulin 3.4 g/dL; HDL Cholesterol 52 mg/dL (40-60); Total Protein 7.2 g/dL (6.4-8.2); Triglycerides 249 mg/dL (<=150); VLDL CHOLESTEROL 49.8 mg/dL
== END 2024-04-12 10:47 | disposition home or self-care (01) ==
LOC: LAB 10:46
PROVIDERS: PCP Family Medicine; Visit Provider Family Medicine
DX: E78.5 Hyperlipidemia, unspecified (principal)
CPT/HCPCS: 36415; 80061; 80076

== ENCOUNTER 2024-06-15 15:47 | Outpatient (OUT) | payer OTHER, SELFPAY ==
--- NOTE | 2024-06-15 15:51 | MR_ITS ---
[address] [address] Patient Name: PAT BAIRES MRN: [id number] date: 1985 Sex: M Assigned Patient Location: MRI Current Patient Location: Accession/Order Number: [id number] Exam Date: 06/15/2024 15:52 Report Date: 06/16/2024 07:23 At the request of: ANABELA GARNETT Procedure: MR cervical spine wo con EXAMINATION: MR cervical spine wo con HISTORY: Cervical Radiculopathy COMPARISON: No relevant comparison available. TECHNIQUE: A variety of imaging planes and parameters were utilized for visualization of suspected pathology. FINDINGS: CRANIOCERVICAL AREA: Normal foramen magnum with no Chiari malformation. PARASPINAL AREA: Normal with no visible mass. BONES: Normal alignment with no acute fracture or spondylolisthesis. No bone edema. Degenerative spondylosis and facet osteoarthropathy CORD: Normal caliber, contour, and signal intensity. CERVICAL DISC LEVELS: C2-C3: No significant disc/facet abnormality, spinal stenosis, or foraminal stenosis. C3-C4: Early degenerative disc disease is present without focal protrusion or neural impingement. C4-C5: No significant disc/facet abnormality, spinal stenosis, or foraminal stenosis. C5-C6: Moderate disc space narrowing and disc desiccation. Moderate diffuse disc/osteophyte complex with facet osteoarthropathy. Central canal stenosis down to 7.9 mm axial image #18. Moderate right and mild left foraminal stenosis C6-C7: Moderate disc space narrowing and disc desiccation. Moderate diffuse disc/osteophyte complex. Narrowing of the central canal to 7.8 mm. Moderate bilateral foraminal stenosis C7-T1:. No significant disc/facet abnormality, spinal stenosis, or foraminal stenosis. 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
--- OUTSIDE RECORDS SUMMARY | 2024-06-15 16:12 | XMS_ITS | CCD ---
Author Organization [facility] Care Team Providers Care Software Engineer Developer Name Role Phone MARICRUZY ., DR PEÑALOZA [...] Unavailable HOY ., DR PEÑALOZA Consulting Unavailable Rosteta Dupont Consulting Unavailable HOY ., DR PEÑALOZA [...] Consulting Unavailable Anabela Javed Primary Care Physician [phone] MD Matias Santamaria Attending Provider Matias Santamaria Attending Unavailable Matias Santamaria Admitting Unavailable Matias SANTAMARIA Attending Unavailable Anabela Javed Referring Unavailable Matias SANTAMARIA Attending Unavailable Matias SANTAMARIA Attending Unavailable Allergies Allergy Classification Reported Allergen(s) Allergy Type Date of Onset Reaction(s) Facility (1 source) No Known Medication Allergies; Translations: [No Known Medication Allergies] Propensity to adverse reactions (disorder) [facility] Repository Medications Current Medications Medication Drug [...] SANTAMARIA MD, JENNIFER Only if needed [address] [place] [address]- Additional Instructions: Problem List/Past Medical [...] inactivated - Not Given Patient Refuses Normal [facility] Comment on above: Result Comment: Elec [...] you for choosing us for your care. [facility] Operative Reporton Operative Report [id number]#1.00TIFF [facility] Pathology Noteon 10-09-2023 Pathology Note [id number]#1.00TIFF [facility] Richard 10-01-2023 L Specimen: [id number] Re ceived: 10/01/23 Status: CHALINO Re Num: [id number] Spec Type: Surgical Subm Dr: Matias Santamaria MD FACS Tissues: A Stomach - Biopsy/Polyp (ANTRUM) B Stomach - Biopsy/Polyp (CARDIA INFLAMM) Procedures: HE/4, Gross/Micro L4/2 Age/ Patient Sex Location Account Attending Physician Pat Baires 38/M LABELL [id number] Matias Santamaria MD FACS SPEC NUM: [id number] RECD: 10/01/23 STATUS: SOUT REQ NUM: [id number] REYNALDO: 10/01/[address] [facility] [address]: Matias Santamaria MD FACS ENTERED: 10/01/[address] [facility] [address]: Estiven Obregon SPEC TYPE: Surgical DEPT: [...] [id number] Received: 10/01/23 Status: CHALINO Gonzalez Num: [id number] Spec Type: Surgical Subm Dr: Matias Santamaria MD FACS Tissues: A Stomach - Biopsy/Polyp (ANTRUM) B Stomach - Biopsy/Polyp (CARDIA INFLAMM) Procedures: HE/4, Gross/Micro L4/2 -------- Patient: Pat Baires [id number] (Continued) -------- Specimen: [id number] Received: 10/01/23 (Continued) Gross Description (Continued) Signed (signature on file) Davion Morris MD 10/03/23 0927 -------- Specimen: [id number] Received: 10/01/23 Status: NABILAMaddi Gonzalez Num: [id number] Spec Type: Surgical Subm Dr: Matias Santamaria MD FACS Tissues: A Stomach - Biopsy/Polyp (ANTRUM) B Stomach - Biopsy/Polyp (CARDIA INFLAMM) Procedures: Ayse MCDONALD/Micro L4/2 -------- Patient: Pat Baires [id number] (Continued) -------- Specimen: [id number] Received: 10/01/23 (Continued) Gross Description (Continued) brooks tissues fragments, 0.3 and 0.5 cm in greatest dimensions. Entirely submitted in one cassette labeled B1. CPT Codes [id number] x 1 -------- -------- Specimen: [id number] Received: 10/01/23 Status: CHALINO Gonzalez Num: [id number] Spec Type: Surgical Subm Dr: Matias Santamaria MD FACS Tissues: A Stomach - Biopsy/Polyp (ANTRUM) B Stomach - Biopsy/Polyp (CARDIA INFLAMM) Procedures: HE/4, Gross/Micro L4/2 -------- Patient: Pat Baires [id number] (Continued) -------- Signed (signature on file) Davion Morris MD 10/03/23 0927 [facility] Insurance Correspondenceon 0 09-24-2023 Insurance Correspondence [id number]#1.00TIFF [facility] Consent for Procedure/Surger yon 08-21-2023 Consent for Procedure/Surgery [id number]#1.00TIFF [facility] Facesheeton 08-20-2023 Facesheet [id number]#1.00TIFF [facility] Ambulatory Visit Summaryon 1 10-20-2022 Ambulatory [...] for choosing us for your care. Normal [facility] Consultation Noteon 07-03-20 23 Consultation Note [id number]#1.00TIFF Normal [facility] Physician Referralon 023 Physician Referral [id number]#1.00TIFF Normal [facility] CT ABDOMEN W CONon 3 CT [...] by: NAWAF GUAMAN Date: 2022-12-30 15:43 Normal [facility] HEMOGLOBINon 12-30-2022 Hemoglobin (Bld) [Mass/Vol] 13.5 g/dL Critically low 14.0-18.0 [facility] Comment on above: Performed By: #### H GB ####[facility] [address] [place] [id number] Morris XR GI UPPER AIR KUB DUAL [...] ELLEN FISHER Date: 2022-09-24 12:25 Normal [facility] H PYLORI ANTIBODY IGGon 08-16 H. PYLORI IGG ABS 0.12 Index Value Normal 0.00-0.79 [facility] Comment on above: Result Comment: Nega tive <0.80 Equivocal 0.80 - 0.89 Positive >0.89 Performed By: #### H PYLLC ####[facility] [address] [place] [id number]. Lanre Morris AMYLASEon 09-10-2022 Amylase [Catalytic activity/Vol] 64 U/L Normal 25-115 [facility] Comment on above: Performed By: #### C MP, LIPA, ADAL, LIPID, DBIL #### [facility] [address] [place], [place] [address] Dr. Lanre Morris BILIRUBIN CONJUGATED (DIRECT )on 09-10-2022 BILI, CONJUGATED 0.1 mg/dL Normal 0.0-0.2 [facility] Comment on above: Performed By: #### C MP, LIPA, ADAL, LIPID, DBIL #### [facility] [address] [place] [address] [address] Lanre Morris LIPASEon 09-10-2022 Lipase [Catalytic activity/Vol] 63.0 U/L Critically low 73.0-393.0 [facility] Comment on above: Performed By: #### C MP, LIPA, ADAL, LIPID, DBIL #### [facility] [address] [place] [address] Dr. Lanre Morris LIPID PROFILEon 09-10-2022 CHOL-HDL RATIO NORM SEE BELOW Normal [facility] Comment on above: Result Comment: 3.3 - 4.4 LOW RISK 4.4 - 7.1 AVERAGE RISK 7.1 - 11.0 MODERATE RISK >11.0 HIGH RISK Performed By: #### C MP, LIPA, ADAL, LIPID, DBIL #### [facility] [address] [place] [address] Dr. Lanre Morris Cholesterol [Mass/Vol] 210 mg/dL Critically high <=200 [facility] Comment on above: Performed By: #### C MP, LIPA, ADAL, LIPID, DBIL #### [facility] [address] [place] [address] Dr. Lanre Morris Cholesterol in HDL [Mass/Vol] 45 mg/dL Normal 40-60 [facility] Comment on above: Performed By: #### C MP, LIPA, ADAL, LIPID, DBIL #### [facility] [address] [place] [address] Dr. Lanre Morris Cholesterol in LDL [Mass/Vol] 126.8 mg/dL Normal [facility] Comment on above: Performed By: #### C MP, LIPA, ADAL, LIPID, DBIL #### [facility] [address] [place] [address] Dr. Lanre Morris Cholesterol.total/C holesterol in HDL [Mass ratio] 4.7 {ratio} Normal [facility] Comment on above: Performed By: #### C MP, LIPA, ADAL, LIPID, DBIL #### [facility] [address] [place] [address] [address] Lanre Morris HDL NORMAL > or = 60 mg/dl - LO W CARDIOVASCULAR RISK <40 mg/dl - HIGH CARDIOVASCULAR RISK Normal [facility] Comment on above: Performed By: #### C MP, LIPA, ADAL, LIPID, DBIL #### [facility] [address] [place] [address] [address] Lanre Morris LDL CALC NORMAL SEE BELOW Normal [facility] Comment on above: Result Comment: <100 mg/dl OPTIMAL 100 - 129 mg/dl NEAR OR ABOVE OPTIMAL 130 - 159 mg/dl BORDERLINE HIGH 160 - 189 mg/dl HIGH >190 mg/dl VERY HIGH Performed By: #### C MP, LIPA, ADAL, LIPID, DBIL #### [facility] [address] [place] [address] Dr. Lanre Morris Triglyceride [Mass/Vol] 191 mg/dL Critically high <=150 [facility] Comment on above: Performed By: #### C MP, LIPA, ADAL, LIPID, DBIL #### [facility] [address] [place] [address] Dr. Lanre Morris VLDL CALC 38.2 mg/dL Normal [facility] Comment on above: Performed By: #### C MP, LIPA, ADAL, LIPID, DBIL #### [facility] [address] [place] [address] Dr. Lanre Morris PROF 14(COMP METB)on 022 Albumin [Mass/Vol] 4.2 g/dL Normal 3.4-5.0 [facility] Comment on above: Performed By: #### C MP, LIPA, ADAL, LIPID, DBIL #### [facility] [address] [place] [address] Dr. Lanre Morris Albumin/Globulin [Mass ratio] 1.2 {ratio} Normal [facility] Comment on above: Performed By: #### C MP, LIPA, ADAL, LIPID, DBIL #### [facility] [address] [place] [address] Dr. Lanre Morris ALP [Catalytic activity/Vol] 67 U/L Normal 46-116 [facility] Comment on above: Performed By: #### C MP, LIPA, ADAL, LIPID, DBIL #### [facility] [address] [place] [address] Dr. Lanre Morris ALT [Catalytic activity/Vol] 29 U/L Normal 16-63 [facility] Comment on above: Performed By: #### C MP, LIPA, ADAL, LIPID, DBIL #### [facility] [address] [place] [address] Dr. Lanre oMrris Anion gap [Moles/Vol] 9.7 mmol/L Normal [facility] Comment on above: Performed By: #### C MP, LIPA, ADAL, LIPID, DBIL #### [facility] [address] [place] [address] Dr. Lanre Morris AST [Catalytic activity/Vol] 18 U/L Normal 15-37 [facility] Comment on above: Performed By: #### C MP, LIPA, ADAL, LIPID, DBIL #### [facility] [address] [place] [address] Dr. Lanre Morris Bilirubin [Mass/Vol] 0.4 mg/dL Normal 0.2-1.0 [facility] Comment on above: Performed By: #### C MP, LIPA, ADAL, LIPID, DBIL #### [facility] [address] [place] [address] Dr. Lanre Morris Calcium [Mass/Vol] 9.6 mg/dL Normal 8.5-10.1 [facility] Comment on above: Performed By: #### C MP, LIPA, ADAL, LIPID, DBIL #### [facility] [address] [place] [address] Dr. Lanre Morris Chloride [Moles/Vol] 101 mmol/L Normal 98-107 [facility] Comment on above: Performed By: #### C MP, LIPA, ADAL, LIPID, DBIL #### [facility] [address] [place] [address] Dr. Lanre Morris CO2 [Moles/Vol] 32.7 mmol/L Critically high 21.0-32.0 [facility] Comment on above: Performed By: #### C MP, LIPA, ADAL, LIPID, DBIL #### [facility] [address] [place] [address] Dr. Lanre Morris Creatinine [Mass/Vol] 0.92 mg/dL Normal 0.70-1.30 [facility] Comment on above: Performed By: #### C MP, LIPA, ADAL, LIPID, DBIL #### [facility] [address] [place] [address] Dr. Lanre Morris EGFR-AF FAROESE >60 Normal >=60 [facility] Comment on above: Performed By: #### C MP, LIPA, ADAL, LIPID, DBIL #### [facility] [address] [place] [address] Dr. Lanre Morris EGFR-NON AF FAROESE >60 Normal >=60 [facility] Comment on above: Performed By: #### C MP, LIPA, ADAL, LIPID, DBIL #### [facility] [address] [place] [address] Dr. Lanre Morris Globulin (S) [Mass/Vol] 3.5 g/dL Normal [facility] Comment on above: Performed By: #### C MP, LIPA, ADAL, LIPID, DBIL #### [facility] [address] [place] [address] Dr. Lanre Morris Glucose [Mass/Vol] 94 mg/dL Normal 74-106 [facility] Comment on above: Performed By: #### C MP, LIPA, ADAL, LIPID, DBIL #### [facility] [address] [place] [address] Dr. Lanre Morris Potassium [Moles/Vol] 4.4 mmol/L Normal 3.5-5.1 [facility] Comment on above: Performed By: #### C MP, LIPA, ADAL, LIPID, DBIL #### [facility] [address] [place] [address] Dr. Lanre Morris Protein [Mass/Vol] 7.7 g/dL Normal 6.4-8.2 [facility] Comment on above: Performed By: #### C MP, LIPA, ADAL, LIPID, DBIL #### [facility] [address] [place] [address] [address] Lanre Morris Sodium [Moles/Vol] 139 mmol/L Normal 136-145 [facility] Comment on above: Performed By: #### C MP, LIPA, ADAL, LIPID, DBIL #### [facility] [address] [place] [address] [address] Lanre Morris Urea nitrogen [Mass/Vol] 10.0 mg/dL Normal 7.0-18.0 [facility] Comment on above: Performed By: #### C MP, LIPA, ADAL, LIPID, DBIL #### [facility] [address] [place] [address] [address] Lanre Morris Urea nitrogen/Creatinine [Mass ratio] 10.9 mg/mg Normal [facility] Comment on above: Performed By: #### C MP, LIPA, ADAL, LIPID, DBIL #### [facility] [address] [place] [address] [address] CHEST W CONon [...] ELLEN FISHER Date: 2022-05-03 16:49 Normal [facility] INSULINon 04-30-2022 Insulin 11.5 uIU/mL Normal 2.6-24.9 [facility] Comment on above: Performed By: #### I NSULIN ####[facility] [address] [place] [id number]. Lanre Morris T4, T3U, FTI LABCORPon 04-30 Free Thyroxine Index 1.9 Normal 1.2-4.9 [facility] Comment on above: Performed By: #### T HYLC ####[facility] [address] [place] [address]Dr. Lanre Morris T3 Uptake 27 % Normal 24-39 [facility] Comment on above: Performed By: #### T HYLC ####[facility] [address] [place] [address]Dr. Lanre Arturo T4 [Mass/Vol] 6.9 ug/dL Normal 4.5-12.0 [facility] Comment on above: Performed By: #### T HYLC ####[facility] [address] [place], [place] [address]Dr. Lanre Arturo TESTOSTERONE, TOTALon 2021 Testosterone [Mass/Vol] 559 ng/dL Normal 264-916 [facility] Comment on above: Result Comment: Adul t male reference interval is based on a population of healthy nonobese males (BMI <30) between 19 and 39 years old. vadim Cleary.al. JCEM 2017,102;2591-5903. PMID: [id number]. Performed By: #### T ESTTOT ####[facility] [address] [place], [place] [address]Dr. Lanre Arturo CBC AUTO DIFFon 04-29-2022 BASO # 0.1 103/ul Normal 0.0-0.1 [facility] Comment on above: Performed By: #### C BC ####[facility] [address] [place] [address]Dr. Lanre Arturo Basophils/100 WBC (Bld) 0.8 % Normal 0.2-2.0 [facility] Comment on above: Performed By: #### C BC ####[facility] [address] [place], [place] [address]Dr. Lanre Morris EO # 0.4 103/ul Normal 0.0-0.7 [facility] Comment on above: Performed By: #### C BC ####[facility] [address] [place], [place] [address]Dr. Lanre Arturo Eosinophils/100 WBC (Bld) 4.9 % Normal 0.9-7.0 [facility] Comment on above: Performed By: #### C BC ####[facility] [address] [place], [place] [address]Dr. Lanre Arturo Erythrocyte distribution width (RBC) [Ratio] 13.7 % Normal 11.0-15.0 [facility] Comment on above: Performed By: #### C BC ####[facility] [address] [place], [place] [address]Dr. Justinehsayy Morris Hematocrit (Bld) [Volume fraction] 44.3 % Normal 42.0-54.0 [facility] Comment on above: Performed By: #### C BC ####[facility] [address] [place], [place] [address]Dr. Lanre Morris Hemoglobin (Bld) [Mass/Vol] 15.0 g/dL Normal 14.0-18.0 [facility] Comment on above: Performed By: #### C BC ####[facility] [address] [place], [place] [address]Dr. Justineshayy Morris IG # 0.04 10e3/ul Critically high 0.00-0.03 [facility] Comment on above: Performed By: #### C BC ####[facility] [address] [place], [place] [address]Dr. Lanre Morris IG % 0.5 % Normal 0.0-0.5 [facility] Comment on above: Performed By: #### C BC ####[facility] [address] [place], [place] [address]DrParveen Morris LYMPH # 2.7 103/ul Normal 1.2-3.8 [facility] Comment on above: Performed By: #### C BC ####[facility] [address] [place], [place] [address]DrParveen Morris Lymphocytes/100 WBC (Bld) 35.2 % Normal 20.5-60.0 [facility] Comment on above: Performed By: #### C BC ####[facility] [address] [place], [place] [address]DrParveen Morris MANUAL DIFF REQ NO Normal [facility] Comment on above: Performed By: #### C BC ####[facility] [address] [place] [address]DrParveen Morris MCH (RBC) [Entitic mass] 29.8 pg Normal 25.9-34.0 [facility] Comment on above: Performed By: #### C BC ####[facility] [address] [place], [place] [address]DrParveen Morris MCHC (RBC) [Mass/Vol] 33.9 g/dL Normal 29.9-35.2 [facility] Comment on above: Performed By: #### C BC ####[facility] [address] [place], [place] [address]DrParveen Morris MCV (RBC) [Entitic vol] 88.1 fL Normal 80.0-94.0 [facility] Comment on above: Performed By: #### C BC ####[facility] [address] [place], [place] [address]DrParveen Morris MONO # 0.6 103/ul Normal 0.3-0.8 [facility] Comment on above: Performed By: #### C BC ####[facility] [address] [place], [place] [address]DrParveen Morris Monocytes/100 WBC (Bld) 8.4 % Normal 1.7-12.0 [facility] Comment on above: Performed By: #### C BC ####[facility] [address] [place], [place] [address]DrParveen Morris NEUT # 3.8 103/ul Normal 1.4-6.5 [facility] Comment on above: Performed By: #### C BC ####[facility] [address] [place], [place] [address]DrParveen Morris Neutrophils/100 WBC (Bld) 50.2 % Normal 43.0-75.0 [facility] Comment on above: Performed By: #### C BC ####[facility] [address] [place] [address]Dr. Lanre Morris Platelet mean volume (Bld) [Entitic vol] 9.6 fL Normal 9.5-13.5 [facility] Comment on above: Performed By: #### C BC ####[facility] [address] [place] [address]Dr. Lanre Morris PLT 363 103/ul Normal 150-450 [facility] Comment on above: Performed By: #### C BC ####[facility] [address] [place], [place] [address]Dr. Lanre Morris RBC 5.03 106/ul Normal 4.70-6.10 [facility] Comment on above: Performed By: #### C BC ####[facility] [address] [place], [place] [address]Dr. Lanre Morris WBC 7.6 103/ul Normal 4.0-11.0 [facility] Comment on above: Performed By: #### C BC ####[facility] [address] [place], [place] [address]Dr. Lanre Morris GLYCOHEMOGLOBIN A1Con 2021 ADA RECOMMENDATION SEE BELOW Normal [facility] Comment on above: Result Comment: ADA RECOMMENDED LIMIT 4.0 - 6.0 ADA THERAPEUTIC TARGET < 7.0 ACTION SUGGESTED > 7.0 Performed By: #### A 1C ####[facility] [address] [place] [address]Dr. Lanre Morris Glucose [Mass/Vol] 108 mg/dL Normal [facility] Comment on above: Performed By: #### A 1C ####[facility] [address] [place], [place] [address]Dr. Lanre Morris HbA1c (Bld) [Mass fraction] 5.4 % Normal 4.5-6.2 [facility] Comment on above: Performed By: #### A 1C ####[facility] [address] [place], [place] [address]Dr. Lanre Morris LIPID PROFILEon 04-29-2022 CHOL-HDL RATIO NORM SEE BELOW Normal [facility] Comment on above: Result Comment: 3.3 - 4.4 LOW RISK 4.4 - 7.1 AVERAGE RISK 7.1 - 11.0 MODERATE RISK >11.0 HIGH RISK Performed By: #### C MP, LIPID, TSH #### [facility] [address] [place] [address] [address] Lanre Morris Cholesterol [Mass/Vol] 254 mg/dL Critically high <=200 [facility] Comment on above: Performed By: #### C MP, LIPID, TSH #### [facility] [address] [place] [address] [address] Lanre Morris Cholesterol in HDL [Mass/Vol] 44 mg/dL Normal 40-60 [facility] Comment on above: Performed By: #### C MP, LIPID, TSH #### [facility] [address] [place] [address] [address] Lanre Morris Cholesterol in LDL [Mass/Vol] 173.6 mg/dL Normal [facility] Comment on above: Performed By: #### C MP, LIPID, TSH #### [facility] [address] [place] [address] [address] Lanre Morris Cholesterol.total/C holesterol in HDL [Mass ratio] 5.8 {ratio} Normal [facility] Comment on above: Performed By: #### C MP, LIPID, TSH #### [facility] [address] [place] [address] [address] Lanre Morris HDL NORMAL > or = 60 mg/dl - LO W CARDIOVASCULAR RISK <40 mg/dl - HIGH CARDIOVASCULAR RISK Normal [facility] Comment on above: Performed By: #### C MP, LIPID, TSH #### [facility] [address] [place] [address] Dr. Lanre Morris LDL CALC NORMAL SEE BELOW Normal [facility] Comment on above: Result Comment: <100 mg/dl OPTIMAL 100 - 129 mg/dl NEAR OR ABOVE OPTIMAL 130 - 159 mg/dl BORDERLINE HIGH 160 - 189 mg/dl HIGH >190 mg/dl VERY HIGH Performed By: #### C MP, LIPID, TSH #### [facility] [address] [place] [address] [address] Lanre Morris Triglyceride [Mass/Vol] 182 mg/dL Critically high <=150 [facility] Comment on above: Performed By: #### C MP, LIPID, TSH #### [facility] [address] [place] [address] [address] Lanre Morris VLDL CALC 36.4 mg/dL Normal [facility] Comment on above: Performed By: #### C MP, LIPID, TSH #### [facility] [address] [place] [address] [address] Lanre Morris PROF 14(COMP METB)on 022 Albumin [Mass/Vol] 4.3 g/dL Normal 3.4-5.0 [facility] Comment on above: Performed By: #### C MP, LIPID, TSH #### [facility] [address] [place] [address] [address] Lanre Morris Albumin/Globulin [Mass ratio] 1.3 {ratio} Normal [facility] Comment on above: Performed By: #### C MP, LIPID, TSH #### [facility] [address] [address] [address] Lanre Morris ALP [Catalytic activity/Vol] 58 U/L Normal 46-116 [facility] Comment on above: Performed By: #### C MP, LIPID, TSH #### [facility] [address] [address] [address] Lanre Morris ALT [Catalytic activity/Vol] 21 U/L Normal 16-63 [facility] Comment on above: Performed By: #### C MP, LIPID, TSH #### [facility] [address] [address] [address] Lanre Morris Anion gap [Moles/Vol] 11.3 mmol/L Normal [facility] Comment on above: Performed By: #### C MP, LIPID, TSH #### [facility] [address] [address] [address] Lanre Morris AST [Catalytic activity/Vol] 12 U/L Critically low 15-37 [facility] Comment on above: Performed By: #### C MP, LIPID, TSH #### [facility] [address] [address] [address] Lanre Morris Bilirubin [Mass/Vol] 0.3 mg/dL Normal 0.2-1.0 [facility] Comment on above: Performed By: #### C MP, LIPID, TSH #### [facility] [address] [place] [address] Dr. Lanre Morris Calcium [Mass/Vol] 9.3 mg/dL Normal 8.5-10.1 [facility] Comment on above: Performed By: #### C MP, LIPID, TSH #### [facility] [address] [address] [address] Lanre Morris Chloride [Moles/Vol] 102 mmol/L Normal 98-107 [facility] Comment on above: Performed By: #### C MP, LIPID, TSH #### [facility] [address] [place] [address] Dr. Lanre Morris CO2 [Moles/Vol] 29.8 mmol/L Normal 21.0-32.0 [facility] Comment on above: Performed By: #### C MP, LIPID, TSH #### [facility] [address] [place] [address] Dr. Lanre Morris Creatinine [Mass/Vol] 0.99 mg/dL Normal 0.70-1.30 [facility] Comment on above: Performed By: #### C MP, LIPID, TSH #### [facility] [address] [place] [address] Dr. Lanre Morris EGFR-AF FAROESE >60 Normal >=60 [facility] Comment on above: Performed By: #### C MP, LIPID, TSH #### [facility] [address] [place] [address] Dr. Lanre Morris EGFR-NON AF FAROESE >60 Normal >=60 [facility] Comment on above: Performed By: #### C MP, LIPID, TSH #### [facility] [address] [place] [address] Dr. Lanre Morris Globulin (S) [Mass/Vol] 3.3 g/dL Normal [facility] Comment on above: Performed By: #### C MP, LIPID, TSH #### [facility] [address] [address] [address] Lanre Morris Glucose [Mass/Vol] 112 mg/dL Critically high 74-106 [facility] Comment on above: Performed By: #### C MP, LIPID, TSH #### [facility] [address] [address] [address] Lanre Morris Potassium [Moles/Vol] 4.1 mmol/L Normal 3.5-5.1 [facility] Comment on above: Performed By: #### C MP, LIPID, TSH #### [facility] [address] [place] [address] Dr. Lanre Morris Protein [Mass/Vol] 7.6 g/dL Normal 6.4-8.2 [facility] Comment on above: Performed By: #### C MP, LIPID, TSH #### [facility] [address] [place] [address] Dr. Lanre Morris Sodium [Moles/Vol] 139 mmol/L Normal 136-145 [facility] Comment on above: Performed By: #### C MP, LIPID, TSH #### [facility] [address] [place] [address] Dr. Lanre Morris Urea nitrogen [Mass/Vol] 9.0 mg/dL Normal 7.0-18.0 [facility] Comment on above: Performed By: #### C MP, LIPID, TSH #### [facility] [address] [place] [address] Dr. Lanre Morris Urea nitrogen/Creatinine [Mass ratio] 9.1 mg/mg Normal [facility] Comment on above: Performed By: #### C MP, LIPID, TSH #### [facility] [address] [place] [address] Dr. Lanre Morris TSHon 04-29-2022 TSH 1.103 uIU/mL Normal 0.358-3.740 [facility] Comment on above: Performed By: #### C MP, LIPID, TSH ####[facility] [id number] [address] Lanre Morris Vital Signs Date Time Vital Sign Value Performing Clinician Emil eagle 08-19-2023 15:36-0500 Blood Pressure Location Matias ROSALIO [facility] [place] 08-19-2023 15:36-0500 Diastolic blood pressure 90 mm[Hg] Matias NILL [facility] [place] 08-19-2023 15:36-0500 Heart rate 76 /min Matias NILL [facility] [place] 08-19-2023 15:36-0500 Respiratory rate 16 /min Matias NILL [facility] [place] 08-19-2023 15:36-0500 Systolic blood pressure 136 mm[Hg] Matias NILL [facility] [place] Encounters Encounter Date Encounter Type Care Provider Facility Start: 10-21-2023 End: 10-22-2023 ambulatory Matias R ROSALIO Facility:[facility] Start: 10-01-2023 End: 10-01-2023 ambulatory Matias R Rosalio Facility:[facility] Start: 10-01-2023 End: 10-02-2023 ambulatory Matias SANTAMARIA [facility] Work Phone: Start: 10-01-2023 End: 10-01-2023 Departed Referred MD Matias Santamaria Work Phone: [facility] Start: 08-19-2023 End: 08-20-2023 ambulatory Matias R NILL Facility:[facility] Start: 08-19-2023 End: 08-19-2023 Patient encounter procedure Matias SANTAMARIA [facility] Start: 06-30-2023 ambulatory Matias SANTAMARIA Facility:[facility] Start: 12-30-2022 End: 12-31-[address] ANABELA JAVED . Facility: Start: 09-24-2022 End: 01-11-[address] ANABELA JAVED . Facility:[facility] Start: 09-10-2022 End: 09-11-[address] ANABELA JAVED . Facility:[facility] Start: 05-03-2022 End: 05-04-[address] AANBELA JAVED . Facility:[facility] Start: 04-30-2022 Encounter for genera l adult medical examination without abnormal findings DR ANABELA JAVED . [facility] Start: 04-29-2022 End: 04-30-[address] ANABELA JAVED . Facility:[facility] Start: 04-29-2022 End: 04-30-2022 Encounter for general adult medical examination without abnormal findings DR ANABELA JAVED . Facility:[facility] Procedures Date Procedure Procedure Detail Performing Clinician Start: 04-29-[address] AIDA JAVED . Comment on above: Performed By: #### [facility] ####[facility] [id number] [place], [place] [address]Cp. Lanre Morris Closed fracture of r ight femur (disorder) Matias SANTAMARIA Immunizations Immunization Date Immunization Notes Care Provider Fa cility NEGATED: Highlighted row has not occurred!08-19-2023 influenza virus vaccine, unspecified formulation Matias SANTAMARIA [facility] [place] Payers Date Payer Category Payer Self-pay 2023 Private Health Insurance [id number] 1985 Unknown [id number] 2.16.84 [id number] 1985 Unknown [id number] 2.16.84 [id number] 1985 Unknown [id number] 2.16.84 [id number] 1985 Unknown [id number] .16.84 [id number] 1985 Unknown [id number] 2.16.84 [id number] 1985 Unknown [id number] 2.16.8 [id number] 1985 Unknown [id number] 2.16.8 [id number] 1985 Unknown [id number] 2.16.8 [id number] 1985 Unknown [id number] 2.16.8 [id number] 1961 Private Health Insurance [id number] Social History Date Type Detail Facility Start: 08-19-2023 Tobacco smoking status Ex-smoker (fi nding) [facility] Tobacco smoking status Smokeless tobacco user within last 30 days [facility] [place] Sex Assigned At Male [facility] Start: 1985 Sex Assigned At Male Adelso [facility] Functional Status Date Assessment Result Facility 08-19-2023 [facility] N[facility]-2023 Note Date [...] vaccine, inactivated - Not Given Patient Refuses [facility] Comment on above: Result Comment: Elec [...] by: ROSETTA DUPONT Date: 2022-09-10 16:49 [facility] Evaluation + Plan note Note Date & Type Note Facility Evaluation + Plan note No data available for this section [facility] [place] Evaluation note Note Date & Type Note Facility Evaluation note No assessment information availa [facility] Work Phone: Hospital Discharge instructions Note Date & Type Note Facility Hospital Discharge instructions No data available for this section [facility] [place] Progress note Note Date & Type Note Facility Progress note No data available for this section [facility] [place] Summary Purpose Family History No Family History [...] DATE CREATED AUTHOR AUTHOR'S ORGANIZ ATION 11/04/2023 [facility] DATE CREATED AUTHOR AUTHOR'S ORGANIZ ATION 11/04/2023 [facility] Patient Care team informatio n (unrecognized section [...] BE BASED ON THE PRIMARY CLINICAL RECORDS. [employer] provides no warranty or guarantee of the accuracy or completeness of information in this document.
== END 2024-06-15 15:48 | disposition home or self-care (01) ==
PROVIDERS: PCP Family Medicine; Visit Provider Family Medicine
DX: M54.12 Radiculopathy, cervical region (principal); M48.02 Spinal stenosis, cervical region
CPT/HCPCS: 72141

== ENCOUNTER 2024-07-30 09:30 | Outpatient (OUT) | payer OTHER, SELFPAY ==
--- NOTE | 2024-07-30 | XR_ITS ---
The [address] [address] Patient Name: PAT BAIRES MRN: [id number] date: 1985 Sex: M Assigned Patient Location: Current Patient Location: Accession/Order Number: [id number] Exam Date: 07/30/2024 09:35 Report Date: 08/01/2024 07:03 At the request of: MARY JO REDDY Procedure: XR lumbar spine min 4V EXAMINATION: XR lumbar spine min 4V HISTORY: LUMBAR SPINE PAIN COMPARISON: XR lumbar spine 03/21/2023 FINDINGS: BONES: Slight left convex curvature lumbar spine. No fracture, spondylolisthesis, bone lesion. No change in alignment during flexion and extension. Suspect mild degenerative facet arthropathy L3-L4 through L5-S1. DISC SPACES: Mild narrowing L5-S1. PARASPINOUS: Negative. No paraspinous abnormality is seen. OTHER: Negative. XR/XR lumbar spine min 4V IMPRESSION: 1. Minimal degenerative changes. 2. No acute abnormality. Electronically authenticated by: MARY ELLEN FISHER Date: 08/01/2024 07:03
--- OUTSIDE RECORDS SUMMARY | 2024-07-30 09:35 | XMS_ITS | CCD ---
Author Organization [facility] Care Team Providers Care [employer] Supervisor Name Role Phone MARICRUZY ., DR PEÑALOZA [...] DR PEÑALOZA Admitting Unavailable HOY ., DR PEÑALZOA Attending Unavailable HOY ., DR PEÑALOZA Consulting [...] Consulting Unavailable Anabela Javed Primary Care Physician MD Matias Santamaria Attending Provider Matias Santamaria Attending Unavailable Matias Santamaria Admitting Unavailable Matias SANTAMARIA Attending Unavailable Anabela Javed Referring Unavailable Matias SANTAMARIA Attending Unavailable Matias SANTAMARIA Attending Unavailable Allergies Allergy Classification Reported Allergen(s) Allergy Type Date of Onset Reaction(s) Facility (1 source) No Known Medication Allergies; Translations: [No Known Medication Allergies] Propensity to adverse reactions (disorder) [facility] Repository Medications Current Medications Medication [...] SANTAMARIA MD, JENNIFER Only if needed [address] [place] [address]- Additional Instructions: Problem List/Past Medical [...] inactivated - Not Given Patient Refuses Normal [facility] Comment on above: Result Comment: [...] you for choosing us for your care. [facility] Operative Reporton Operative Report [id number]#1.00TIFF [facility] Pathology Noteon 10-09-2023 Pathology Note [id number]#1.00TIFF [facility] Richard 10-01-2023 L Specimen: [id number] Re ceived: 10/01/23 Status: CHALINO Re Num: [id number] Spec Type: Surgical Subm Dr: Matias Santamaria MD FACS Tissues: A Stomach - Biopsy/Polyp (ANTRUM) B Stomach - Biopsy/Polyp (CARDIA INFLAMM) Procedures: HE/4, Gross/Micro L4/2 Age/ Patient Sex Location Account Attending Physician Pat Baires 38/M LABELL [id number] Matias Santamaria MD FACS SPEC NUM: [id number] RECD: 10/01/23 STATUS: SOUT REQ NUM: [id number] REYNALDO: 10/01/[address] [facility] DR: Matias Santamaria MD FACS ENTERED: 10/01/[address] [facility] [address]: Estiven Obregon SPEC TYPE: Surgical [...] [id number] Received: 10/01/23 Status: CHALINO Gonzalez Num: [id number] Spec Type: Surgical Subm Dr: Matias Santamaria MD FACS Tissues: A Stomach - Biopsy/Polyp (ANTRUM) B Stomach - Biopsy/Polyp (CARDIA INFLAMM) Procedures: HE/4, Gross/Micro L4/2 -------- Patient: Pat Baires [id number] (Continued) -------- Specimen: [id number] Received: 10/01/23 (Continued) Gross Description (Continued) Signed (signature on file) Davion Morris MD 10/03/23 0927 -------- Specimen: [id number] Received: 10/01/23 Status: NABILAMaddi Gonzalez Num: [id number] Spec Type: Surgical Subm Dr: Matias Santamaria MD FACS Tissues: A Stomach - Biopsy/Polyp (ANTRUM) B Stomach - Biopsy/Polyp (CARDIA INFLAMM) Procedures: Ayse MCDONALD/Micro L4/2 -------- Patient: Pat Baires [id number] (Continued) -------- Specimen: [id number] Received: 10/01/23 (Continued) Gross Description (Continued) brooks tissues fragments, 0.3 and 0.5 cm in greatest dimensions. Entirely submitted in one cassette labeled B1. CPT Codes [id number] 24251 x 1 -------- -------- Specimen: [id number] Received: 10/01/23 Status: CHALINO Gonzalez Num: [id number] Spec Type: Surgical Subm Dr: Matias Santamaria MD FACS Tissues: A Stomach - Biopsy/Polyp (ANTRUM) B Stomach - Biopsy/Polyp (CARDIA INFLAMM) Procedures: HE/4, Gross/Micro L4/2 -------- Patient: Pat Baires [id number] (Continued) -------- Signed (signature on file) Davion Morris MD 10/03/23 0927 [facility] Insurance Correspondenceon 0 09-24-2023 Insurance Correspondence [id number]#1.00TIFF [facility] Consent for Procedure/Surger yon 08-21-2023 Consent for Procedure/Surgery [id number]#1.00TIFF [facility] Facesheeton 08-20-2023 Facesheet [id number]#1.00TIFF [facility] Ambulatory Visit Summaryon 1 10-20-2022 Ambulatory Visit [...] for choosing us for your care. Normal [facility] Consultation Noteon 07-03-20 23 Consultation Note [id number]#1.00TIFF Normal [facility] Physician Referralon 023 Physician Referral [id number]#1.00TIFF Normal [facility] CT ABDOMEN W CONon 3 [...] by: NAWAF GUAMAN Date: 2022-12-30 15:43 Normal [facility] HEMOGLOBINon 12-30-2022 Hemoglobin (Bld) [Mass/Vol] 13.5 g/dL Critically low 14.0-18.0 [facility] Comment on above: Performed By: #### H GB ####[facility] [address] [place] [id number] Morris XR GI UPPER AIR KUB DUAL [...] ELLEN FISHER Date: 2022-09-24 12:25 Normal [facility] H PYLORI ANTIBODY IGGon 08-16 H. PYLORI IGG ABS 0.12 Index Value Normal 0.00-0.79 [facility] Comment on above: Result Comment: Nega tive <0.80 Equivocal 0.80 - 0.89 Positive >0.89 Performed By: #### H PYLLC ####[facility] [address] [place] [id number]. Lanre Morris AMYLASEon 09-10-2022 Amylase [Catalytic activity/Vol] 64 U/L Normal 25-115 [facility] Comment on above: Performed By: #### C MP, LIPA, ADAL, LIPID, DBIL #### [facility] [address] [place], [place] [address] Dr. Lanre Morris BILIRUBIN CONJUGATED (DIRECT )on 09-10-2022 BILI, CONJUGATED 0.1 mg/dL Normal 0.0-0.2 [facility] Comment on above: Performed By: #### C MP, LIPA, ADAL, LIPID, DBIL #### [facility] [address] [place] [address] [address] Lanre Morris LIPASEon 09-10-2022 Lipase [Catalytic activity/Vol] 63.0 U/L Critically low 73.0-393.0 [facility] Comment on above: Performed By: #### C MP, LIPA, ADAL, LIPID, DBIL #### [facility] [address] [place] [address] Dr. Lanre Morris LIPID PROFILEon 09-10-2022 CHOL-HDL RATIO NORM SEE BELOW Normal [facility] Comment on above: Result Comment: 3.3 - 4.4 LOW RISK 4.4 - 7.1 AVERAGE RISK 7.1 - 11.0 MODERATE RISK >11.0 HIGH RISK Performed By: #### C MP, LIPA, ADAL, LIPID, DBIL #### [facility] [address] [place] [address] Dr. Lanre Morris Cholesterol [Mass/Vol] 210 mg/dL Critically high <=200 [facility] Comment on above: Performed By: #### C MP, LIPA, ADAL, LIPID, DBIL #### [facility] [address] [place] [address] Dr. Lanre Morris Cholesterol in HDL [Mass/Vol] 45 mg/dL Normal 40-60 [facility] Comment on above: Performed By: #### C MP, LIPA, ADAL, LIPID, DBIL #### [facility] [address] [place] [address] Dr. Lanre Morris Cholesterol in LDL [Mass/Vol] 126.8 mg/dL Normal [facility] Comment on above: Performed By: #### C MP, LIPA, ADAL, LIPID, DBIL #### [facility] [address] [place] [address] Dr. Lanre Morris Cholesterol.total/C holesterol in HDL [Mass ratio] 4.7 {ratio} Normal [facility] Comment on above: Performed By: #### C MP, LIPA, ADAL, LIPID, DBIL #### [facility] [address] [place] [address] [address] Lanre Morris HDL NORMAL > or = 60 mg/dl - LO W CARDIOVASCULAR RISK <40 mg/dl - HIGH CARDIOVASCULAR RISK Normal [facility] Comment on above: Performed By: #### C MP, LIPA, ADAL, LIPID, DBIL #### [facility] [address] [address] [address] Lanre Morris LDL CALC NORMAL SEE BELOW Normal [facility] Comment on above: Result Comment: <100 mg/dl OPTIMAL 100 - 129 mg/dl NEAR OR ABOVE OPTIMAL 130 - 159 mg/dl BORDERLINE HIGH 160 - 189 mg/dl HIGH >190 mg/dl VERY HIGH Performed By: #### C MP, LIPA, ADAL, LIPID, DBIL #### [facility] [address] [place] [address] Dr. Lanre Morris Triglyceride [Mass/Vol] 191 mg/dL Critically high <=150 [facility] Comment on above: Performed By: #### C MP, LIPA, ADAL, LIPID, DBIL #### [facility] [address] [place] [address] Dr. Lanre Morris VLDL CALC 38.2 mg/dL Normal [facility] Comment on above: Performed By: #### C MP, LIPA, ADAL, LIPID, DBIL #### [facility] [address] [place] [address] Dr. Lanre Morris PROF 14(COMP METB)on 022 Albumin [Mass/Vol] 4.2 g/dL Normal 3.4-5.0 [facility] Comment on above: Performed By: #### C MP, LIPA, ADAL, LIPID, DBIL #### [facility] [address] [place] [address] Dr. Lanre Morris Albumin/Globulin [Mass ratio] 1.2 {ratio} Normal [facility] Comment on above: Performed By: #### C MP, LIPA, ADAL, LIPID, DBIL #### [facility] [address] [place] [address] Dr. Lanre Morris ALP [Catalytic activity/Vol] 67 U/L Normal 46-116 [facility] Comment on above: Performed By: #### C MP, LIPA, ADAL, LIPID, DBIL #### [facility] [address] [place] [address] Dr. Lanre Morris ALT [Catalytic activity/Vol] 29 U/L Normal 16-63 [facility] Comment on above: Performed By: #### C MP, LIPA, ADAL, LIPID, DBIL #### [facility] [address] [place] [address] Dr. Lanre Morris Anion gap [Moles/Vol] 9.7 mmol/L Normal [facility] Comment on above: Performed By: #### C MP, LIPA, ADAL, LIPID, DBIL #### [facility] [address] [place] [address] Dr. Lanre Morris AST [Catalytic activity/Vol] 18 U/L Normal 15-37 [facility] Comment on above: Performed By: #### C MP, LIPA, ADAL, LIPID, DBIL #### [facility] [address] [place] [address] Dr. Lanre Morris Bilirubin [Mass/Vol] 0.4 mg/dL Normal 0.2-1.0 [facility] Comment on above: Performed By: #### C MP, LIPA, ADAL, LIPID, DBIL #### [facility] [address] [place] [address] Dr. Lanre Morris Calcium [Mass/Vol] 9.6 mg/dL Normal 8.5-10.1 [facility] Comment on above: Performed By: #### C MP, LIPA, ADAL, LIPID, DBIL #### [facility] [address] [place] [address] Dr. Lanre Morris Chloride [Moles/Vol] 101 mmol/L Normal 98-107 [facility] Comment on above: Performed By: #### C MP, LIPA, ADAL, LIPID, DBIL #### [facility] [address] [place] [address] Dr. Lanre Morris CO2 [Moles/Vol] 32.7 mmol/L Critically high 21.0-32.0 [facility] Comment on above: Performed By: #### C MP, LIPA, ADAL, LIPID, DBIL #### [facility] [address] [place] [address] Dr. Lanre Morris Creatinine [Mass/Vol] 0.92 mg/dL Normal 0.70-1.30 [facility] Comment on above: Performed By: #### C MP, LIPA, ADAL, LIPID, DBIL #### [facility] [address] [place] [address] Dr. Lanre Morris EGFR-AF VIETNAMESE >60 Normal >=60 [facility] Comment on above: Performed By: #### C MP, LIPA, ADAL, LIPID, DBIL #### [facility] [address] [place] [address] Dr. Lanre Morris EGFR-NON AF VIETNAMESE >60 Normal >=60 [facility] Comment on above: Performed By: #### C MP, LIPA, ADAL, LIPID, DBIL #### [facility] [address] [place] [address] Dr. Lanre Morris Globulin (S) [Mass/Vol] 3.5 g/dL Normal [facility] Comment on above: Performed By: #### C MP, LIPA, ADAL, LIPID, DBIL #### [facility] [address] [place] [address] Dr. Lanre Morris Glucose [Mass/Vol] 94 mg/dL Normal 74-106 [facility] Comment on above: Performed By: #### C MP, LIPA, ADAL, LIPID, DBIL #### [facility] [address] [place] [address] Dr. Lanre Morris Potassium [Moles/Vol] 4.4 mmol/L Normal 3.5-5.1 [facility] Comment on above: Performed By: #### C MP, LIPA, ADAL, LIPID, DBIL #### [facility] [address] [place] [address] Dr. Lanre Morris Protein [Mass/Vol] 7.7 g/dL Normal 6.4-8.2 [facility] Comment on above: Performed By: #### C MP, LIPA, ADAL, LIPID, DBIL #### [facility] [address] [place] [address] [address] Lanre Morris Sodium [Moles/Vol] 139 mmol/L Normal 136-145 [facility] Comment on above: Performed By: #### C MP, LIPA, ADAL, LIPID, DBIL #### [facility] [address] [place] [address] [address] Lanre Morris Urea nitrogen [Mass/Vol] 10.0 mg/dL Normal 7.0-18.0 [facility] Comment on above: Performed By: #### C MP, LIPA, ADAL, LIPID, DBIL #### [facility] [address] [place] [address] [address] Lanre Morris Urea nitrogen/Creatinine [Mass ratio] 10.9 mg/mg Normal [facility] Comment on above: Performed By: #### C MP, LIPA, ADAL, LIPID, DBIL #### [facility] [address] [place] [address] CHEST W CONon [...] ELLEN FISHER Date: 2022-05-03 16:49 Normal [facility] INSULINon 04-30-2022 Insulin 11.5 uIU/mL Normal 2.6-24.9 [facility] Comment on above: Performed By: #### I NSULIN ####[facility] [address] [place] [id number]. Lanre Morris T4, T3U, FTI LABCORPon 04-30 Free Thyroxine Index 1.9 Normal 1.2-4.9 [facility] Comment on above: Performed By: #### T HYLC ####[facility] [address] [place] [address]Dr. Lanre Morris T3 Uptake 27 % Normal 24-39 [facility] Comment on above: Performed By: #### T HYLC ####[facility] [address] [place] [address]Dr. Lanre Arturo T4 [Mass/Vol] 6.9 ug/dL Normal 4.5-12.0 [facility] Comment on above: Performed By: #### T HYLC ####[facility] [address] [place], [place] [address]Dr. Lanre Arturo TESTOSTERONE, TOTALon 2021 Testosterone [Mass/Vol] 559 ng/dL Normal 264-916 [facility] Comment on above: Result Comment: Adul t male reference interval is based on a population of healthy nonobese males (BMI <30) between 19 and 39 years old. vadim Cleary.al. JCEM 2017,102;1313-7148. PMID: [id number]. Performed By: #### T ESTTOT ####[facility] [address] [place], [place] [address]Dr. Lanre Arturo CBC AUTO DIFFon 04-29-2022 BASO # 0.1 103/ul Normal 0.0-0.1 [facility] Comment on above: Performed By: #### C BC ####[facility] [address] [place] [address]Dr. Lanre Arturo Basophils/100 WBC (Bld) 0.8 % Normal 0.2-2.0 [facility] Comment on above: Performed By: #### C BC ####[facility] [address] [place], [place] [address]Dr. Lanre Morris EO # 0.4 103/ul Normal 0.0-0.7 [facility] Comment on above: Performed By: #### C BC ####[facility] [address] [place], [place] [address]Dr. Lanre Arturo Eosinophils/100 WBC (Bld) 4.9 % Normal 0.9-7.0 [facility] Comment on above: Performed By: #### C BC ####[facility] [address] [place], [place] [address]Dr. Lanre Arturo Erythrocyte distribution width (RBC) [Ratio] 13.7 % Normal 11.0-15.0 [facility] Comment on above: Performed By: #### C BC ####[facility] [address] [place], [place] [address]Dr. Justineshayy Morris Hematocrit (Bld) [Volume fraction] 44.3 % Normal 42.0-54.0 [facility] Comment on above: Performed By: #### C BC ####[facility] [address] [place], [place] [address]Dr. Lanre Morris Hemoglobin (Bld) [Mass/Vol] 15.0 g/dL Normal 14.0-18.0 [facility] Comment on above: Performed By: #### C BC ####[facility] [address] [place], [place] [address]Dr. Justineshayy Morris IG # 0.04 10e3/ul Critically high 0.00-0.03 [facility] Comment on above: Performed By: #### C BC ####[facility] [address] [place], [place] [address]Dr. Lanre Morris IG % 0.5 % Normal 0.0-0.5 [facility] Comment on above: Performed By: #### C BC ####[facility] [address] [place], [place] [address]DrParveen Morris LYMPH # 2.7 103/ul Normal 1.2-3.8 [facility] Comment on above: Performed By: #### C BC ####[facility] [address] [place], [place] [address]DrParveen Morris Lymphocytes/100 WBC (Bld) 35.2 % Normal 20.5-60.0 [facility] Comment on above: Performed By: #### C BC ####[facility] [address] [place], [place] [address]DrParveen Morris MANUAL DIFF REQ NO Normal [facility] Comment on above: Performed By: #### C BC ####[facility] [address] [place] [address]DrParveen Morris MCH (RBC) [Entitic mass] 29.8 pg Normal 25.9-34.0 [facility] Comment on above: Performed By: #### C BC ####[facility] [address] [place], [place] [address]DrParveen Morris MCHC (RBC) [Mass/Vol] 33.9 g/dL Normal 29.9-35.2 [facility] Comment on above: Performed By: #### C BC ####[facility] [address] [place], [place] [address]DrParveen Morris MCV (RBC) [Entitic vol] 88.1 fL Normal 80.0-94.0 [facility] Comment on above: Performed By: #### C BC ####[facility] [address] [place], [place] [address]DrParveen Morris MONO # 0.6 103/ul Normal 0.3-0.8 [facility] Comment on above: Performed By: #### C BC ####[facility] [address] [place], [place] [address]DrParveen Morris Monocytes/100 WBC (Bld) 8.4 % Normal 1.7-12.0 [facility] Comment on above: Performed By: #### C BC ####[facility] [address] [place], [place] [address]DrParveen Morris NEUT # 3.8 103/ul Normal 1.4-6.5 [facility] Comment on above: Performed By: #### C BC ####[facility] [address] [place], [place] [address]DrParveen Morris Neutrophils/100 WBC (Bld) 50.2 % Normal 43.0-75.0 [facility] Comment on above: Performed By: #### C BC ####[facility] [address] [place] [address]Dr. Lanre Morris Platelet mean volume (Bld) [Entitic vol] 9.6 fL Normal 9.5-13.5 [facility] Comment on above: Performed By: #### C BC ####[facility] [address] [place] [address]Dr. Lanre Morris PLT 363 103/ul Normal 150-450 [facility] Comment on above: Performed By: #### C BC ####[facility] [address] [place], [place] [address]Dr. Lanre Morris RBC 5.03 106/ul Normal 4.70-6.10 [facility] Comment on above: Performed By: #### C BC ####[facility] [address] [place], [place] [address]Dr. Lanre Morris WBC 7.6 103/ul Normal 4.0-11.0 [facility] Comment on above: Performed By: #### C BC ####[facility] [address] [place], [place] [address]Dr. Lanre Morris GLYCOHEMOGLOBIN A1Con 2021 ADA RECOMMENDATION SEE BELOW Normal [facility] Comment on above: Result Comment: ADA RECOMMENDED LIMIT 4.0 - 6.0 ADA THERAPEUTIC TARGET < 7.0 ACTION SUGGESTED > 7.0 Performed By: #### A 1C ####[facility] [address] [place] [address]Dr. Lanre Morris Glucose [Mass/Vol] 108 mg/dL Normal [facility] Comment on above: Performed By: #### A 1C ####[facility] [address] [place], [place] [address]Dr. Lanre Morris HbA1c (Bld) [Mass fraction] 5.4 % Normal 4.5-6.2 [facility] Comment on above: Performed By: #### A 1C ####[facility] [address] [place], [place] [address]Dr. Lanre Morris LIPID PROFILEon 04-29-2022 CHOL-HDL RATIO NORM SEE BELOW Normal [facility] Comment on above: Result Comment: 3.3 - 4.4 LOW RISK 4.4 - 7.1 AVERAGE RISK 7.1 - 11.0 MODERATE RISK >11.0 HIGH RISK Performed By: #### C MP, LIPID, TSH #### [facility] [address] [place] [address] [address] Lanre Morris Cholesterol [Mass/Vol] 254 mg/dL Critically high <=200 [facility] Comment on above: Performed By: #### C MP, LIPID, TSH #### [facility] [address] [place] [address] [address] Lanre Morris Cholesterol in HDL [Mass/Vol] 44 mg/dL Normal 40-60 [facility] Comment on above: Performed By: #### C MP, LIPID, TSH #### [facility] [address] [address] [address] Lanre Morris Cholesterol in LDL [Mass/Vol] 173.6 mg/dL Normal [facility] Comment on above: Performed By: #### C MP, LIPID, TSH #### [facility] [address] [address] [address] Lanre Morris Cholesterol.total/C holesterol in HDL [Mass ratio] 5.8 {ratio} Normal [facility] Comment on above: Performed By: #### C MP, LIPID, TSH #### [facility] [address] [address] [address] Lanre Morris HDL NORMAL > or = 60 mg/dl - LO W CARDIOVASCULAR RISK <40 mg/dl - HIGH CARDIOVASCULAR RISK Normal [facility] Comment on above: Performed By: #### C MP, LIPID, TSH #### [facility] [address] [place] [address] Dr. Lanre Morris LDL CALC NORMAL SEE BELOW Normal [facility] Comment on above: Result Comment: <100 mg/dl OPTIMAL 100 - 129 mg/dl NEAR OR ABOVE OPTIMAL 130 - 159 mg/dl BORDERLINE HIGH 160 - 189 mg/dl HIGH >190 mg/dl VERY HIGH Performed By: #### C MP, LIPID, TSH #### [facility] [address] [place] [address] [address] Lanre Morris Triglyceride [Mass/Vol] 182 mg/dL Critically high <=150 [facility] Comment on above: Performed By: #### C MP, LIPID, TSH #### [facility] [address] [address] [address] Lanre Morris VLDL CALC 36.4 mg/dL Normal [facility] Comment on above: Performed By: #### C MP, LIPID, TSH #### [facility] [address] [address] [address] Lanre Morris PROF 14(COMP METB)on 022 Albumin [Mass/Vol] 4.3 g/dL Normal 3.4-5.0 [facility] Comment on above: Performed By: #### C MP, LIPID, TSH #### [facility] [address] [address] [address] Lanre Morris Albumin/Globulin [Mass ratio] 1.3 {ratio} Normal [facility] Comment on above: Performed By: #### C MP, LIPID, TSH #### [facility] [address] [address] [address] Lanre Morris ALP [Catalytic activity/Vol] 58 U/L Normal 46-116 [facility] Comment on above: Performed By: #### C MP, LIPID, TSH #### [facility] [facility] [address] [address] [address] Lanre Morris ALT [Catalytic activity/Vol] 21 U/L Normal 16-63 [facility] Comment on above: Performed By: #### C MP, LIPID, TSH #### [facility] [address] [address] [address] Lanre Morris Anion gap [Moles/Vol] 11.3 mmol/L Normal [facility] Comment on above: Performed By: #### C MP, LIPID, TSH #### [facility] [address] [address] [address] Lanre Morris AST [Catalytic activity/Vol] 12 U/L Critically low 15-37 [facility] Comment on above: Performed By: #### C MP, LIPID, TSH #### [facility] [address] [address] [address] Lanre Morris Bilirubin [Mass/Vol] 0.3 mg/dL Normal 0.2-1.0 [facility] Comment on above: Performed By: #### C MP, LIPID, TSH #### [facility] [address] [place] [address] Dr. Lanre Morris Calcium [Mass/Vol] 9.3 mg/dL Normal 8.5-10.1 [facility] Comment on above: Performed By: #### C MP, LIPID, TSH #### [facility] [address] [address] [address] Lanre Morris Chloride [Moles/Vol] 102 mmol/L Normal 98-107 [facility] Comment on above: Performed By: #### C MP, LIPID, TSH #### [facility] [address] [place] [address] Dr. Lanre Morris CO2 [Moles/Vol] 29.8 mmol/L Normal 21.0-32.0 [facility] Comment on above: Performed By: #### C MP, LIPID, TSH #### [facility] [address] [place] [address] Dr. Lanre Morris Creatinine [Mass/Vol] 0.99 mg/dL Normal 0.70-1.30 [facility] Comment on above: Performed By: #### C MP, LIPID, TSH #### [facility] [address] [place] [address] Dr. Lanre Morris EGFR-AF VIETNAMESE >60 Normal >=60 [facility] Comment on above: Performed By: #### C MP, LIPID, TSH #### [facility] [address] [place] [address] Dr. Lanre Morris EGFR-NON AF VIETNAMESE >60 Normal >=60 [facility] Comment on above: Performed By: #### C MP, LIPID, TSH #### [facility] [address] [place] [address] Dr. Lanre Morris Globulin (S) [Mass/Vol] 3.3 g/dL Normal [facility] Comment on above: Performed By: #### C MP, LIPID, TSH #### [facility] [address] [address] [address] Lanre Morris Glucose [Mass/Vol] 112 mg/dL Critically high 74-106 [facility] Comment on above: Performed By: #### C MP, LIPID, TSH #### [facility] [address] [address] [address] Lanre Morris Potassium [Moles/Vol] 4.1 mmol/L Normal 3.5-5.1 [facility] Comment on above: Performed By: #### C MP, LIPID, TSH #### [facility] [address] [place] [address] Dr. Lanre Morris Protein [Mass/Vol] 7.6 g/dL Normal 6.4-8.2 [facility] Comment on above: Performed By: #### C MP, LIPID, TSH #### [facility] [address] [place] [address] Dr. Lanre Morris Sodium [Moles/Vol] 139 mmol/L Normal 136-145 [facility] Comment on above: Performed By: #### C MP, LIPID, TSH #### [facility] [address] [place] [address] Dr. Lanre Morris Urea nitrogen [Mass/Vol] 9.0 mg/dL Normal 7.0-18.0 [facility] Comment on above: Performed By: #### C MP, LIPID, TSH #### [facility] [address] [place] [address] Dr. Lanre Morris Urea nitrogen/Creatinine [Mass ratio] 9.1 mg/mg Normal [facility] Comment on above: Performed By: #### C MP, LIPID, TSH #### [facility] [address] [place] [address] Dr. Lanre Morris TSHon 04-29-2022 TSH 1.103 uIU/mL Normal 0.358-3.740 [facility] Comment on above: Performed By: #### C MP, LIPID, TSH ####[facility] [id number] [address] Lanre Morris Vital Signs Date Time Vital Sign Value Performing Clinician Emil eagle 08-19-2023 15:36-0500 Blood Pressure Location Matias ROSALIO [facility] 08-19-2023 15:36-0500 Diastolic blood pressure 90 mm[Hg] Matias NILL [facility] 08-19-2023 15:36-0500 Heart rate 76 /min Matias NILL [facility] 08-19-2023 15:36-0500 Respiratory rate 16 /min Matias NILL [facility] 08-19-2023 15:36-0500 Systolic blood pressure 136 mm[Hg] Matias NILL [facility] Encounters Encounter Date Encounter Type Care Provider Facility Start: 10-21-2023 End: 10-22-2023 ambulatory Matias R ROSALIO Facility:[facility] Start: 10-01-2023 End: 10-01-2023 ambulatory Matias R Rosalio Facility:[facility] Start: 10-01-2023 End: 10-02-2023 ambulatory Matias SANTAMARIA [facility] Work Phone: Start: 10-01-2023 End: 10-01-2023 Departed Referred MD Matias Santamaria Work Phone: [facility] Start: 08-19-2023 End: 08-20-2023 ambulatory Matias [...] abnormal findings DR ANABELA JAVED . [facility] Start: 04-29-2022 End: 04-30-[address] ANABELA JAVED . Facility:[facility] Start: 04-29-2022 End: 04-30-2022 Encounter for general adult medical examination without abnormal findings DR ANABELA JAVED . Facility:[facility] Procedures Date Procedure Procedure Detail Performing Clinician Start: 04-29-[address] AIDA JAVED . Comment on above: Performed By: #### P [facility] ####[facility] [id number] [place], [place] [address]Eg. Lanre Morris Closed fracture of r ight femur (disorder) Matias SANTAMARIA Immunizations Immunization Date Immunization Notes Care Provider Fa cility NEGATED: Highlighted row has not occurred!08-19-2023 influenza virus vaccine, unspecified formulation Matias SANTAMARIA [facility] Payers Date Payer Category Payer Self-pay 2023 Private Health Insurance [id number] 1985 Unknown [id number] 2.16.84 [id number] 1985 Unknown [id number] 2.16.84 [id number] 1985 Unknown [id number] 2.16.84 [id number] 1985 Unknown [id number] .16.84 [id number] 1985 Unknown [id number] 2.16.84 [id number] 1985 Unknown [id number] 2.16.8 [id number] 1985 Unknown [id number] 2.16.8 [id number] 1985 Unknown [id number] 2.16.8 [id number] 1985 Unknown [id number] 2.16.8 [id number] 1961 Private Health Insurance [id number] Social History Date Type Detail Facility Start: 08-19-2023 Tobacco smoking status Ex-smoker (fi nding) [facility] Tobacco smoking status Smokeless tobacco user within last 30 days [facility] Sex Assigned At Male [facility] Start: 1985 Sex Assigned At Male Adelso [facility] Functional Status Date Assessment Result Facility 08-19-2023 [facility] N[facility]-19-2023 Note Date & [...] vaccine, inactivated - Not Given Patient Refuses [facility] Comment on above: Result Comment: [...] by: ROSETTA DUPONT Date: 2022-09-10 16:49 [facility] Evaluation + Plan note Note Date & Type Note Facility Evaluation + Plan note No data available for this section [facility] Evaluation note Note Date & Type Note Facility Evaluation note No assessment information avail[facility] Work Phone: Hospital Discharge instructions Note Date & Type Note Facility Hospital Discharge instructions No data available for this section [facility] Progress note Note Date & Type Note Facility Progress note No data available for this section [facility] Summary Purpose Family History No Family History [...] and content) DATE CREATED AUTHOR 01/02/2023 [facility] DATE CREATED AUTHOR AUTHOR'S ORGANIZ ATION 11/04/2023 [facility] DATE CREATED AUTHOR AUTHOR'S ORGANIZ ATION 11/04/2023 [facility] Patient Care team informatio n (unrecognized [...] BE BASED ON THE PRIMARY CLINICAL RECORDS. [employer] provides no warranty or guarantee of the accuracy or completeness of information in this document.
== END 2024-07-30 09:31 | disposition home or self-care (01) ==
LOC: EC 09:30
PROVIDERS: PCP Family Medicine; Visit Provider Orthopaedic Surgery Orthopaedic Surgery of the Spine
DX: M54.50 Low back pain, unspecified (principal); M51.369 Other intervertebral disc degeneration, lumbar region without mention of lumbar back pain or lower extremity pain
CPT/HCPCS: 72110

== ENCOUNTER 2024-09-10 16:02 | Outpatient (OUT) | payer OTHER, SELFPAY ==
--- NOTE | 2024-09-10 | XR_ITS ---
The [address] [address] Patient Name: PAT BAIRES MRN: [id number] date: 1985 Sex: M Assigned Patient Location: [facility] Current Patient Location: Accession/Order Number: [id number] Exam Date: 09/10/2024 16:10 Report Date: 09/13/2024 14:29 At the request of: ANABELA GARNETT Procedure: XR chest 2V EXAMINATION: XR ribs LT 2V, XR chest 2V HISTORY: chest wall pain R07.89 ; chronic left lateral mid to lower chest wall/rib pain COMPARISON: No relevant comparison available. FINDINGS: LUNGS: No significant pulmonary parenchymal abnormalities. PLEURA: No pneumothorax, effusion, or pleural thickening. MEDIASTINUM: No visible mass or adenopathy. CARDIAC: No cardiomegaly or cardiac silhouette abnormality. RIBS: Normal. No significant arthropathy or acute abnormality. OTHER: Negative. XR/XR chest 2V IMPRESSION: 1. No acute cardiopulmonary process. 2. No appreciable rib abnormality or suspicious findings to account for patient's symptoms. Electronically authenticated by: MARY ELLEN FISHER Date: 09/13/2024 14:29
--- NOTE | 2024-09-10 | XR_ITS ---
The [address] [address] Patient Name: PAT BAIRES MRN: [id number] date: 1985 Sex: M Assigned Patient Location: [facility] Current Patient Location: Accession/Order Number: [id number] Exam Date: 09/10/2024 16:10 Report Date: 09/13/2024 14:29 At the request of: ANABELA GARNETT Procedure: XR ribs LT 2V EXAMINATION: XR ribs LT 2V, XR chest 2V HISTORY: chest wall pain R07.89 ; chronic left lateral mid to lower chest wall/rib pain COMPARISON: No relevant comparison available. FINDINGS: LUNGS: No significant pulmonary parenchymal abnormalities. PLEURA: No pneumothorax, effusion, or pleural thickening. MEDIASTINUM: No visible mass or adenopathy. CARDIAC: No cardiomegaly or cardiac silhouette abnormality. RIBS: Normal. No significant arthropathy or acute abnormality. OTHER: Negative. XR/XR ribs LT 2V IMPRESSION: 1. No acute cardiopulmonary process. 2. No appreciable rib abnormality or suspicious findings to account for patient's symptoms. Electronically authenticated by: MARY ELLEN FISHER Date: 09/13/2024 14:29
--- OUTSIDE RECORDS SUMMARY | 2024-09-10 16:07 | XMS_ITS | CCD ---
Author Organization [facility] Care Team Providers Care Certified Ophthalmic Technician Name Role Phone MARICRUZY ., DR PEÑALOZA [...] Medication Allergies] Propensity to adverse reactions (disorder) [facility] Repository Medications Current Medications Medication Drug [...] SANTAMARIA MD, JENNIFER Only if needed [address] [email or web address] [address]- Additional Instructions: Problem List/Past Medical [...] inactivated - Not Given Patient Refuses Normal [facility] Comment on above: Result Comment: Elec [...] you for choosing us for your care. [facility] Operative Reporton Operative Report [id number]#1.00TIFF [facility] Pathology Noteon 10-09-2023 Pathology Note [id number]#1.00TIFF [facility] Richard 10-01-2023 L Specimen: [id number] Re ceived: 10/01/23 Status: CHALINO Re Num: [id number] Spec Type: Surgical Subm Dr: Matias Santamaria MD FACS Tissues: A Stomach - Biopsy/Polyp (ANTRUM) B Stomach - Biopsy/Polyp (CARDIA INFLAMM) Procedures: HE/4, Gross/Micro L4/2 Age/ Patient Sex Location Account Attending Physician Pat Baires 38/M [place] [id number] Matias Santamaria MD FACS SPEC NUM: [id number] RECD: 10/01/23 STATUS: SOUT REQ NUM: [id number] REYNALDO: 10/01/[address] [facility] [address]: Matias Santamaria MD FACS ENTERED: 10/01/[address] [facility] DR: Estiven Obregon SPEC TYPE: Surgical [...] [id number] Received: 10/01/23 Status: CHALINO Gonzalez Num: [id number] Spec Type: Surgical Subm Dr: Matias Santamaria MD FACS Tissues: A Stomach - Biopsy/Polyp (ANTRUM) B Stomach - Biopsy/Polyp (CARDIA INFLAMM) Procedures: HE/4, Gross/Micro L4/2 -------- Patient: Pat Baires [id number] (Continued) -------- Specimen: [id number] Received: 10/01/23 (Continued) Gross Description (Continued) Signed (signature on file) Davion Morris MD 10/03/23 0927 -------- Specimen: [id number] Received: 10/01/23 Status: NABILAMaddi Gonzalez Num: [id number] Spec Type: Surgical Subm Dr: Matias Santamaria MD FACS Tissues: A Stomach - Biopsy/Polyp (ANTRUM) B Stomach - Biopsy/Polyp (CARDIA INFLAMM) Procedures: Ayse MCDONALD/Micro L4/2 -------- Patient: Pat Baires [id number] (Continued) -------- Specimen: [id number] Received: 10/01/23 (Continued) Gross Description (Continued) brooks tissues fragments, 0.3 and 0.5 cm in greatest dimensions. Entirely submitted in one cassette labeled B1. CPT Codes 09407y3 02198 x 1 -------- -------- Specimen: [id number] Received: 10/01/23 Status: CHALINO Gonzalez Num: [id number] Spec Type: Surgical Subm Dr: Matias Santamaria MD FACS Tissues: A Stomach - Biopsy/Polyp (ANTRUM) B Stomach - Biopsy/Polyp (CARDIA INFLAMM) Procedures: HE/4, Gross/Micro L4/2 -------- Patient: Pat Baires [id number] (Continued) -------- Signed (signature on file) Davion Morris MD 10/03/23 0927 [facility] Insurance Correspondenceon 0 09-24-2023 Insurance Correspondence [id number]#1.00TIFF [facility] Consent for Procedure/Surger yon 08-21-2023 Consent for Procedure/Surgery [id number]#1.00TIFF [facility] Facesheeton 08-20-2023 Facesheet [id number]#1.00TIFF [facility] Ambulatory Visit Summaryon 1 10-20-2022 Ambulatory Visit [...] for choosing us for your care. Normal [facility] Consultation Noteon 07-03-20 23 Consultation Note [id number]#1.00TIFF Normal [facility] Physician Referralon 023 Physician Referral [id number]#1.00TIFF Normal [facility] CT ABDOMEN W CONon 3 CT [...] GUAMAN Date: 2022-12-30 15:[address] [facility] HEMOGLOBINon 12-30-2022 Hemoglobin (Bld) [Mass/Vol] 13.5 g/dL Critically low 14.0-18.[address] [facility] Comment on above: Performed By: #### H GB ####[facility] [address] [place] [id number] Morris XR GI UPPER AIR KUB DUAL [...] ELLEN FISHER Date: 2022-09-24 12:25 Normal [facility] H PYLORI ANTIBODY IGGon 08-16 H. PYLORI IGG ABS 0.12 Index Value Normal 0.00-0.79 [facility] Comment on above: Result Comment: Nega tive <0.80 Equivocal 0.80 - 0.89 Positive >0.89 Performed By: #### H PYLLC ####[facility] [address] [place] [id number]. Lanre Morris AMYLASEon 09-10-2022 Amylase [Catalytic activity/Vol] 64 U/L Normal 25-115 [facility] Comment on above: Performed By: #### C MP, LIPA, ADAL, LIPID, DBIL #### [facility] [address] [place], [place] [address] Dr. Lanre Morris BILIRUBIN CONJUGATED (DIRECT )on 09-10-2022 BILI, CONJUGATED 0.1 mg/dL Normal 0.0-0.[address] [facility] Comment on above: Performed By: #### C MP, LIPA, ADAL, LIPID, DBIL #### [facility] [address] [place] [address] [address] Lanre Morris LIPASEon 09-10-2022 Lipase [Catalytic activity/Vol] 63.0 U/L Critically low 73.0-393.[address] [facility] Comment on above: Performed By: #### C MP, LIPA, ADAL, LIPID, DBIL #### [facility] [address] [place] [address] Dr. Lanre Morris LIPID PROFILEon 09-10-2022 CHOL-HDL RATIO NORM SEE BELOW Normal [facility] Comment on above: Result Comment: 3.3 - 4.4 LOW RISK 4.4 - 7.1 AVERAGE RISK 7.1 - 11.0 MODERATE RISK >11.0 HIGH RISK Performed By: #### C MP, LIPA, ADAL, LIPID, DBIL #### [facility] [address] [place] [address] Dr. Lanre Morris Cholesterol [Mass/Vol] 210 mg/dL Critically high <=200 [facility] Comment on above: Performed By: #### C MP, LIPA, ADAL, LIPID, DBIL #### [facility] [address] [place] [address] Dr. Lanre Morris Cholesterol in HDL [Mass/Vol] 45 mg/dL Normal 40-[address] [facility] Comment on above: Performed By: #### C MP, LIPA, ADAL, LIPID, DBIL #### [facility] [address] [place] [address] Dr. Lanre Morris Cholesterol in LDL [Mass/Vol] 126.8 mg/dL Normal [facility] Comment on above: Performed By: #### C MP, LIPA, ADAL, LIPID, DBIL #### [facility] [address] [place] [address] Dr. Lanre Morris Cholesterol.total/C holesterol in HDL [Mass ratio] 4.7 {ratio} Normal [facility] Comment on above: Performed By: #### C MP, LIPA, ADAL, LIPID, DBIL #### [facility] [address] [place] [address] [address] Lanre Morris HDL NORMAL > or = 60 mg/dl - LO W CARDIOVASCULAR RISK <40 mg/dl - HIGH CARDIOVASCULAR RISK Normal [facility] Comment on above: Performed By: #### C MP, LIPA, ADAL, LIPID, DBIL #### [facility] [address] [address] [address] Lanre Morris LDL CALC NORMAL SEE BELOW Normal [facility] Comment on above: Result Comment: <100 mg/dl OPTIMAL 100 - 129 mg/dl NEAR OR ABOVE OPTIMAL 130 - 159 mg/dl BORDERLINE HIGH 160 - 189 mg/dl HIGH >190 mg/dl VERY HIGH Performed By: #### C MP, LIPA, ADAL, LIPID, DBIL #### [facility] [address] [place] [address] Dr. Lanre Morris Triglyceride [Mass/Vol] 191 mg/dL Critically high <=[address] [facility] Comment on above: Performed By: #### C MP, LIPA, ADAL, LIPID, DBIL #### [facility] [address] [place] [address] Dr. Lanre Morris VLDL CALC 38.2 mg/dL Normal [facility] Comment on above: Performed By: #### C MP, LIPA, ADAL, LIPID, DBIL #### [facility] [address] [place] [address] Dr. Lanre Morris PROF 14(COMP METB)on 022 Albumin [Mass/Vol] 4.2 g/dL Normal 3.4-5.[address] [facility] Comment on above: Performed By: #### C MP, LIPA, ADAL, LIPID, DBIL #### [facility] [address] [place] [address] Dr. Lanre Morris Albumin/Globulin [Mass ratio] 1.2 {ratio} Normal [facility] Comment on above: Performed By: #### C MP, LIPA, ADAL, LIPID, DBIL #### [facility] [address] [place] [address] Dr. Lanre Morris ALP [Catalytic activity/Vol] 67 U/L Normal 46-[address] [facility] Comment on above: Performed By: #### C MP, LIPA, ADAL, LIPID, DBIL #### [facility] [address] [place] [address] Dr. Lanre Morris ALT [Catalytic activity/Vol] 29 U/L Normal 16-63 [facility] Comment on above: Performed By: #### C MP, LIPA, ADAL, LIPID, DBIL #### [facility] [address] [place] [address] Dr. Lanre Morris Anion gap [Moles/Vol] 9.7 mmol/L Normal [facility] Comment on above: Performed By: #### C MP, LIPA, ADAL, LIPID, DBIL #### [facility] [address] [place] [address] Dr. Lanre Morris AST [Catalytic activity/Vol] 18 U/L Normal 15-[address] [facility] Comment on above: Performed By: #### C MP, LIPA, ADAL, LIPID, DBIL #### [facility] [address] [place] [address] Dr. Lanre Morris Bilirubin [Mass/Vol] 0.4 mg/dL Normal 0.2-1.[address] [facility] Comment on above: Performed By: #### C MP, LIPA, ADAL, LIPID, DBIL #### [facility] [address] [place] [address] Dr. Lanre Morris Calcium [Mass/Vol] 9.6 mg/dL Normal 8.5-10.[address] [facility] Comment on above: Performed By: #### C MP, LIPA, ADAL, LIPID, DBIL #### [facility] [address] [place] [address] Dr. Lanre Morris Chloride [Moles/Vol] 101 mmol/L Normal 98-107 [facility] Comment on above: Performed By: #### C MP, LIPA, ADAL, LIPID, DBIL #### [facility] [address] [place] [address] Dr. Lanre Morris CO2 [Moles/Vol] 32.7 mmol/L Critically high 21.0-32.0 [facility] Comment on above: Performed By: #### C MP, LIPA, ADAL, LIPID, DBIL #### [facility] [address] [place] [address] Dr. Lanre Morris Creatinine [Mass/Vol] 0.92 mg/dL Normal 0.70-1.30 [facility] Comment on above: Performed By: #### C MP, LIPA, ADAL, LIPID, DBIL #### [facility] [address] [place] [address] Dr. Lanre Morris EGFR-AF MAURITANIAN >60 Normal >=60 [facility] Comment on above: Performed By: #### C MP, LIPA, ADAL, LIPID, DBIL #### [facility] [address] [place] [address] Dr. Lanre Morris EGFR-NON AF MAURITANIAN >60 Normal >=[address] [facility] Comment on above: Performed By: #### C MP, LIPA, ADAL, LIPID, DBIL #### [facility] [address] [place] [address] Dr. Lanre Morris Globulin (S) [Mass/Vol] 3.5 g/dL Normal [facility] Comment on above: Performed By: #### C MP, LIPA, ADAL, LIPID, DBIL #### [facility] [address] [place] [address] Dr. Lanre Morris Glucose [Mass/Vol] 94 mg/dL Normal 74-106 [facility] Comment on above: Performed By: #### C MP, LIPA, ADAL, LIPID, DBIL #### [facility] [address] [place] [address] Dr. Lanre Morris Potassium [Moles/Vol] 4.4 mmol/L Normal 3.5-5.1 [facility] Comment on above: Performed By: #### C MP, LIPA, ADAL, LIPID, DBIL #### [facility] [address] [place] [address] Dr. Lanre Morris Protein [Mass/Vol] 7.7 g/dL Normal 6.4-8.2 [facility] Comment on above: Performed By: #### C MP, LIPA, ADAL, LIPID, DBIL #### [facility] [address] [place] [address] [address] Lanre Morris Sodium [Moles/Vol] 139 mmol/L Normal 136-145 [facility] Comment on above: Performed By: #### C MP, LIPA, ADAL, LIPID, DBIL #### [facility] [address] [place] [address] [address] Lanre Morris Urea nitrogen [Mass/Vol] 10.0 mg/dL Normal 7.0-18.[address] [facility] Comment on above: Performed By: #### C MP, LIPA, ADAL, LIPID, DBIL #### [facility] [address] [place] [address] [address] Lanre Morris Urea nitrogen/Creatinine [Mass ratio] 10.9 mg/mg Normal [facility] Comment on above: Performed By: #### C MP, LIPA, ADAL, LIPID, DBIL #### [facility] [address] [place] [address] CHEST W CONon [...] ELLEN FISHER Date: 2022-05-03 16:49 Normal [facility] INSULINon 04-30-2022 Insulin 11.5 uIU/mL Normal 2.6-24.[address] [facility] Comment on above: Performed By: #### I NSULIN ####[facility] [address] [place] [id number]. Lanre Morris T4, T3U, FTI LABCORPon 04-30 Free Thyroxine Index 1.9 Normal 1.2-4.9 [facility] Comment on above: Performed By: #### T HYLC ####[facility] [address] [place] [address]Dr. Lanre Morris T3 Uptake 27 % Normal 24-39 [facility] Comment on above: Performed By: #### T HYLC ####[facility] [address] [place] [address]Dr. Lanre Arturo T4 [Mass/Vol] 6.9 ug/dL Normal 4.5-12.0 [facility] Comment on above: Performed By: #### T HYLC ####[facility] [address] [place], [place] [address]Dr. Lanre Arturo TESTOSTERONE, TOTALon 2021 Testosterone [Mass/Vol] 559 ng/dL Normal 264-916 [facility] Comment on above: Result Comment: Adul t male reference interval is based on a population of healthy nonobese males (BMI <30) between 19 and 39 years old. vadim Cleary.al. JCEM 2017,102;0047-9737. PMID: [id number]. Performed By: #### T ESTTOT ####[facility] [address] [place], [place] [address]Dr. Lanre Arturo CBC AUTO DIFFon 04-29-2022 BASO # 0.1 103/ul Normal 0.0-0.1 [facility] Comment on above: Performed By: #### C BC ####[facility] [address] [place] [address]Dr. Lanre Arturo Basophils/100 WBC (Bld) 0.8 % Normal 0.2-2.0 [facility] Comment on above: Performed By: #### C BC ####[facility] [address] [place], [place] [address]Dr. Lanre Morris EO # 0.4 103/ul Normal 0.0-0.7 [facility] Comment on above: Performed By: #### C BC ####[facility] [address] [place], [place] [address]Dr. Lanre Arturo Eosinophils/100 WBC (Bld) 4.9 % Normal 0.9-7.0 [facility] Comment on above: Performed By: #### C BC ####[facility] [address] [place], [place] [address]Dr. Lanre Arturo Erythrocyte distribution width (RBC) [Ratio] 13.7 % Normal 11.0-15.0 [facility] Comment on above: Performed By: #### C BC ####[facility] [address] [place], [place] [address]Dr. Justineshayy Morris Hematocrit (Bld) [Volume fraction] 44.3 % Normal 42.0-54.0 [facility] Comment on above: Performed By: #### C BC ####[facility] [address] [place], [place] [address]Dr. Lanre Morris Hemoglobin (Bld) [Mass/Vol] 15.0 g/dL Normal 14.0-18.0 [facility] Comment on above: Performed By: #### C BC ####[facility] [address] [place], [place] [address]Dr. Justineshayy Morris IG # 0.04 10e3/ul Critically high 0.00-0.03 [facility] Comment on above: Performed By: #### C BC ####[facility] [address] [place], [place] [address]Dr. Lanre Morris IG % 0.5 % Normal 0.0-0.5 [facility] Comment on above: Performed By: #### C BC ####[facility] [address] [place], [place] [address]DrParveen Morris LYMPH # 2.7 103/ul Normal 1.2-3.8 [facility] Comment on above: Performed By: #### C BC ####[facility] [address] [place], [place] [address]DrParveen Morris Lymphocytes/100 WBC (Bld) 35.2 % Normal 20.5-60.[address] [facility] Comment on above: Performed By: #### C BC ####[facility] [address] [place], [place] [address]DrParveen Morris MANUAL DIFF REQ NO Normal [facility] Comment on above: Performed By: #### C BC ####[facility] [address] [place] [address]DrParveen Morris MCH (RBC) [Entitic mass] 29.8 pg Normal 25.9-34.0 [facility] Comment on above: Performed By: #### C BC ####[facility] [address] [place], [place] [address]DrParveen Morris MCHC (RBC) [Mass/Vol] 33.9 g/dL Normal 29.9-35.2 [facility] Comment on above: Performed By: #### C BC ####[facility] [address] [place], [place] [address]DrParveen Morris MCV (RBC) [Entitic vol] 88.1 fL Normal 80.0-94.0 [facility] Comment on above: Performed By: #### C BC ####[facility] [address] [place], [place] [address]DrParveen Morris MONO # 0.6 103/ul Normal 0.3-0.8 [facility] Comment on above: Performed By: #### C BC ####[facility] [address] [place], [place] [address]DrParveen Morris Monocytes/100 WBC (Bld) 8.4 % Normal 1.7-12.0 [facility] Comment on above: Performed By: #### C BC ####[facility] [address] [place], [place] [address]DrParveen Morris NEUT # 3.8 103/ul Normal 1.4-6.5 [facility] Comment on above: Performed By: #### C BC ####[facility] [address] [place], [place] [address]DrParveen Morris Neutrophils/100 WBC (Bld) 50.2 % Normal 43.0-75.0 [facility] Comment on above: Performed By: #### C BC ####[facility] [address] [place] [address]Dr. Lanre Morris Platelet mean volume (Bld) [Entitic vol] 9.6 fL Normal 9.5-13.[address] [facility] Comment on above: Performed By: #### C BC ####[facility] [address] [place] [address]Dr. Lanre Morris PLT 363 103/ul Normal 150-450 [facility] Comment on above: Performed By: #### C BC ####[facility] [address] [place], [place] [address]Dr. Lanre Morris RBC 5.03 106/ul Normal 4.70-6.10 [facility] Comment on above: Performed By: #### C BC ####[facility] [address] [place], [place] [address]Dr. Lanre Morris WBC 7.6 103/ul Normal 4.0-11.0 [facility] Comment on above: Performed By: #### C BC ####[facility] [address] [place], [place] [address]Dr. Lanre Morris GLYCOHEMOGLOBIN A1Con 2021 ADA RECOMMENDATION SEE BELOW Normal [facility] Comment on above: Result Comment: ADA RECOMMENDED LIMIT 4.0 - 6.0 ADA THERAPEUTIC TARGET < 7.0 ACTION SUGGESTED > 7.0 Performed By: #### A 1C ####[facility] [address] [place] [address]Dr. Lanre Morris Glucose [Mass/Vol] 108 mg/dL Normal [facility] Comment on above: Performed By: #### A 1C ####[facility] [address] [place], [place] [address]Dr. Lanre Morris HbA1c (Bld) [Mass fraction] 5.4 % Normal 4.5-6.2 [facility] Comment on above: Performed By: #### A 1C ####[facility] [address] [place], [place] [address]Dr. Lanre Morris LIPID PROFILEon 04-29-2022 CHOL-HDL RATIO NORM SEE BELOW Normal [facility] Comment on above: Result Comment: 3.3 - 4.4 LOW RISK 4.4 - 7.1 AVERAGE RISK 7.1 - 11.0 MODERATE RISK >11.0 HIGH RISK Performed By: #### C MP, LIPID, TSH #### [facility] [address] [address] [address] Lanre Morris Cholesterol [Mass/Vol] 254 mg/dL Critically high <=[address] [facility] Comment on above: Performed By: #### C MP, LIPID, TSH #### [facility] [address] [place] [address] [address] Lanre Morris Cholesterol in HDL [Mass/Vol] 44 mg/dL Normal 40-[address] [facility] Comment on above: Performed By: #### C MP, LIPID, TSH #### [facility] [address] [address] [address] Lanre Morris Cholesterol in LDL [Mass/Vol] 173.6 mg/dL Normal [facility] Comment on above: Performed By: #### C MP, LIPID, TSH #### [facility] [address] [address] [address] Lanre Morris Cholesterol.total/C holesterol in HDL [Mass ratio] 5.8 {ratio} Normal [facility] Comment on above: Performed By: #### C MP, LIPID, TSH #### [facility] [address] [address] [address] Lanre Morris HDL NORMAL > or = 60 mg/dl - LO W CARDIOVASCULAR RISK <40 mg/dl - HIGH CARDIOVASCULAR RISK Normal [facility] Comment on above: Performed By: #### C MP, LIPID, TSH #### [facility] [address] [place] [address] Dr. Lanre Morris LDL CALC NORMAL SEE BELOW Normal [facility] Comment on above: Result Comment: <100 mg/dl OPTIMAL 100 - 129 mg/dl NEAR OR ABOVE OPTIMAL 130 - 159 mg/dl BORDERLINE HIGH 160 - 189 mg/dl HIGH >190 mg/dl VERY HIGH Performed By: #### C MP, LIPID, TSH #### [facility] [address] [address] [address] Lanre Morris Triglyceride [Mass/Vol] 182 mg/dL Critically high <=150 [facility] Comment on above: Performed By: #### C MP, LIPID, TSH #### [facility] [address] [address] [address] Lanre Morris VLDL CALC 36.4 mg/dL Normal [facility] Comment on above: Performed By: #### C MP, LIPID, TSH #### [facility] [address] [address] [address] Lanre Morris PROF 14(COMP METB)on 022 Albumin [Mass/Vol] 4.3 g/dL Normal 3.4-5.[address] [facility] Comment on above: Performed By: #### C MP, LIPID, TSH #### [facility] [address] [address] [address] Lanre Morris Albumin/Globulin [Mass ratio] 1.3 {ratio} Normal [facility] Comment on above: Performed By: #### C MP, LIPID, TSH #### [facility] [address] [address] [address] Lanre Morris ALP [Catalytic activity/Vol] 58 U/L Normal 46-[address] [facility] Comment on above: Performed By: #### C MP, LIPID, TSH #### [facility] [address] [address] [address] Lanre Morris ALT [Catalytic activity/Vol] 21 U/L Normal 16-63 [facility] Comment on above: Performed By: #### C MP, LIPID, TSH #### [facility] [address] [address] [address] Lanre Morris Anion gap [Moles/Vol] 11.3 mmol/L Normal [facility] Comment on above: Performed By: #### C MP, LIPID, TSH #### [facility] [address] [address] [address] Lanre Morris AST [Catalytic activity/Vol] 12 U/L Critically low 15-37 [facility] Comment on above: Performed By: #### C MP, LIPID, TSH #### [facility] [address] [address] [address] Lanre Morris Bilirubin [Mass/Vol] 0.3 mg/dL Normal 0.2-1.[address] [facility] Comment on above: Performed By: #### C MP, LIPID, TSH #### [facility] [address] [place] [address] Dr. Lanre Morris Calcium [Mass/Vol] 9.3 mg/dL Normal 8.5-10.1 [facility] Comment on above: Performed By: #### C MP, LIPID, TSH #### [facility] [address] [address] [address] Lanre Morris Chloride [Moles/Vol] 102 mmol/L Normal 98-[address] [facility] Comment on above: Performed By: #### C MP, LIPID, TSH #### [facility] [address] [place] [address] Dr. Lanre Morris CO2 [Moles/Vol] 29.8 mmol/L Normal 21.0-32.[address] [facility] Comment on above: Performed By: #### C MP, LIPID, TSH #### [facility] [address] [place] [address] Dr. Lanre Morris Creatinine [Mass/Vol] 0.99 mg/dL Normal 0.70-1.[address] [facility] Comment on above: Performed By: #### C MP, LIPID, TSH #### [facility] [address] [place] [address] Dr. Lanre Morris EGFR-AF MAURITANIAN >60 Normal >=60 [facility] Comment on above: Performed By: #### C MP, LIPID, TSH #### [facility] [address] [place] [address] Dr. Lanre Morris EGFR-NON AF MAURITANIAN >60 Normal >=[address] [facility] Comment on above: Performed By: #### C MP, LIPID, TSH #### [facility] [address] [place] [address] Dr. Lanre Morris Globulin (S) [Mass/Vol] 3.3 g/dL Normal [facility] Comment on above: Performed By: #### C MP, LIPID, TSH #### [facility] [address] [address] [address] Lanre Morris Glucose [Mass/Vol] 112 mg/dL Critically high 74-106 T [facility] Comment on above: Performed By: #### C MP, LIPID, TSH #### [facility] [address] [address] [address] Lanre Morris Potassium [Moles/Vol] 4.1 mmol/L Normal 3.5-5.[address] [facility] Comment on above: Performed By: #### C MP, LIPID, TSH #### [facility] [address] [place] [address] Dr. Lanre Morris Protein [Mass/Vol] 7.6 g/dL Normal 6.4-8.[address] [facility] Comment on above: Performed By: #### C MP, LIPID, TSH #### [facility] [address] [place] [address] Dr. Lanre Morris Sodium [Moles/Vol] 139 mmol/L Normal 136-[address] [facility] Comment on above: Performed By: #### C MP, LIPID, TSH #### [facility] [address] [place] [address] Dr. Lanre Morris Urea nitrogen [Mass/Vol] 9.0 mg/dL Normal 7.0-18.[address] [facility] Comment on above: Performed By: #### C MP, LIPID, TSH #### [facility] [address] [place] [address] Dr. Lanre Morris Urea nitrogen/Creatinine [Mass ratio] 9.1 mg/mg Normal [facility] Comment on above: Performed By: #### C MP, LIPID, TSH #### [facility] [address] [place] [address] Dr. Lanre Morris TSHon 04-29-2022 TSH 1.103 uIU/mL Normal 0.358-3.[address] [facility] Comment on above: Performed By: #### C MP, LIPID, TSH ####[facility] [id number] [address] Lanre Morris Vital Signs Date Time Vital Sign Value Performing Clinician Emil eagle 08-19-2023 15:36-0500 Blood Pressure Location Matias ROSALIO [facility] 08-19-2023 15:36-0500 Diastolic blood pressure 90 mm[Hg] Matias NILL [facility] 08-19-2023 15:36-0500 Heart rate 76 /min Matias NILL [facility] 08-19-2023 15:36-0500 Respiratory rate 16 /min Matias NILL [facility] 08-19-2023 15:36-0500 Systolic blood pressure 136 mm[Hg] Matias NILL [facility] Encounters Encounter Date Encounter Type Care Provider Facility Start: 10-21-2023 End: 10-22-2023 ambulatory Matias R ROSALIO Facility:[facility] Start: 10-01-2023 End: 10-01-2023 ambulatory Matias R Rosalio Facility:[facility] Start: 10-01-2023 End: 10-02-2023 ambulatory Matias SANTAMARIA [facility] Work Phone: Start: 10-01-2023 End: 10-01-2023 Departed Referred MD Matias Santamaria Work Phone: [facility] Start: 08-19-2023 End: 08-20-2023 ambulatory Matias [...] medical examination without abnormal findings DR ANABELA AJVED . [facility] Start: 04-29-2022 End: 04-30-[address] ANABELA JAVED . Facility:[facility] Start: 04-29-2022 End: 04-30-2022 Encounter for general adult medical examination without abnormal findings DR ANABELA JAVED . Facility:[facility] Procedures Date Procedure Procedure Detail Performing Clinician Start: 04-29-[address] AIDA JAVED . Comment on above: Performed By: #### [facility] ####[facility] [id number] [place], [place] [address]Pg. Lanre Morris Closed fracture of r ight femur (disorder) Matias SANTAMARIA Immunizations Immunization Date Immunization Notes Care Provider Fa cility NEGATED: Highlighted row has not occurred!08-19-2023 influenza virus vaccine, unspecified formulation Matias SANTAMARIA [facility] Payers Date Payer Category Payer Self-pay 2023 Private Health Insurance [id number] 1985 Unknown [id number] 2.16.84 [id number] 1985 Unknown [id number] 2.16.84 [id number] 1983 Unknown [id number] 2.16.84 [id number] 1983 Unknown [id number] .16.84 [id number] 1983 Unknown [id number] 2.16.84 [id number] 1983 Unknown [id number] 2.16.8 [id number] 1983 Unknown [id number] 2.16.8 [id number] 1983 Unknown [id number] 2.16.8 [id number] 1983 Unknown [id number] 2.16.8 [id number] 1961 Private Health Insurance [id number] Social History Date Type Detail Facility Start: 08-19-2023 Tobacco smoking status Ex-smoker (fi nding) [facility] Tobacco smoking status Smokeless tobacco user within last 30 days [facility] Sex Assigned At Male [facility] Start: 1985 Sex Assigned At Male Adelso [facility] Functional Status Date Assessment Result Facility 08-19-2023 Functional [facility] N[facility]A [facility]-19-2023 Note Date & [...] vaccine, inactivated - Not Given Patient Refuses [facility] Comment on above: Result Comment: Elec [...] by: ROSETTA DUPONT Date: 2022-09-10 16:49 [facility] Evaluation + Plan note Note Date & Type Note Facility Evaluation + Plan note No data available for this section [facility] Evaluation note Note Date & Type Note Facility Evaluation note No assessment information availa agustín [facility] Work Phone: Hospital Discharge instructions Note Date & Type Note Facility Hospital Discharge instructions No data available for this section [facility] Progress note Note Date & Type Note Facility Progress note No data available for this section [facility] Summary Purpose Family History No Family History [...] and content) DATE CREATED AUTHOR 01/02/2023 [facility] DATE CREATED AUTHOR AUTHOR'S ORGANIZ ATION 11/04/2023 [facility] DATE CREATED AUTHOR AUTHOR'S ORGANIZ ATION 11/04/2023 [facility] Patient Care team informatio n (unrecognized section [...] BE BASED ON THE PRIMARY CLINICAL RECORDS. [employer] provides no warranty or guarantee of the accuracy or completeness of information in this document.
== END 2024-09-10 16:03 | disposition home or self-care (01) ==
PROVIDERS: PCP Family Medicine; Visit Provider Family Medicine
DX: R07.89 Other chest pain (principal)
CPT/HCPCS: 71046; 71100

== ENCOUNTER 2024-11-02 15:30 | Outpatient (OUT) | payer OTHER, SELFPAY ==
--- OUTSIDE RECORDS SUMMARY | 2024-11-02 15:49 | XMS_ITS | CCD ---
Author Organization [facility] Care Team Providers Care Die Maker Stamping Name Role Phone MARICRUZY ., DR PEÑALOZA [...] Care Physician MD Matias Santamaria Attending Provider [phone] Matias Santamaria Attending Unavailable Matias Santamaria Admitting Unavailable Matias SANTAMARIA Attending Unavailable Anabela Javed Referring Unavailable Matias SANTAMARIA Attending Unavailable Matias SANTAMARIA Attending Unavailable Allergies Allergy Classification Reported Allergen(s) Allergy Type Date of Onset Reaction(s) Facility (1 source) No Known Medication Allergies; Translations: [No Known Medication Allergies] Propensity to adverse reactions (disorder) [facility] Repository Medications Current Medications Medication Drug Class(es) [...] SANTAMARIA MD, JENNIFER Only if needed [address] [place] [address]- Additional Instructions: Problem List/Past Medical [...] inactivated - Not Given Patient Refuses Normal [facility] Comment on above: Result Comment: Elec tronically [...] you for choosing us for your care. [facility] Operative Reporton Operative Report [id number]#1.00TIFF [facility] Pathology Noteon 10-09-2023 Pathology Note [id number]#1.00TIFF [facility] Richard 10-01-2023 L Specimen: [id number] Re ceived: 10/01/23 Status: CHALINO Re Num: [id number] Spec Type: Surgical Subm Dr: Matias Santamaria MD FACS Tissues: A Stomach - Biopsy/Polyp (ANTRUM) B Stomach - Biopsy/Polyp (CARDIA INFLAMM) Procedures: HE/4, Gross/Micro L4/2 Age/ Patient Sex Location Account Attending Physician Pat Baires 38/M [place] [id number] Matias Santamaria MD FACS SPEC NUM: [id number] RECD: 10/01/23 STATUS: SOUT REQ NUM: [id number] REYNALDO: 10/01/[address] [facility] [address]: Matias Santamaria MD FACS ENTERED: 10/01/[address] [facility] [address]: Estiven Obregon SPEC TYPE: Surgical DEPT: [...] [id number] Received: 10/01/23 Status: CHALINO Gonzalez Num: [id number] Spec Type: Surgical Subm Dr: Matias Santamaria MD FACS Tissues: A Stomach - Biopsy/Polyp (ANTRUM) B Stomach - Biopsy/Polyp (CARDIA INFLAMM) Procedures: HE/4, Gross/Micro L4/2 -------- Patient: Pat Baires [id number] (Continued) -------- Specimen: [id number] Received: 10/01/23 (Continued) Gross Description (Continued) Signed (signature on file) Davion Morris MD 10/03/23 0927 -------- Specimen: [id number] Received: 10/01/23 Status: NABILAMaddi Gonzalez Num: [id number] Spec Type: Surgical Subm Dr: Matias Santamaria MD FACS Tissues: A Stomach - Biopsy/Polyp (ANTRUM) B Stomach - Biopsy/Polyp (CARDIA INFLAMM) Procedures: Ayse MCDONALD/Micro L4/2 -------- Patient: Pat Baires [id number] (Continued) -------- Specimen: [id number] Received: 10/01/23 (Continued) Gross Description (Continued) brooks tissues fragments, 0.3 and 0.5 cm in greatest dimensions. Entirely submitted in one cassette labeled B1. CPT Codes 36810b4 [id number] x 1 -------- -------- Specimen: [id number] Received: 10/01/23 Status: CHALINO Gonzalez Num: [id number] Spec Type: Surgical Subm Dr: Matias Santamaria MD FACS Tissues: A Stomach - Biopsy/Polyp (ANTRUM) B Stomach - Biopsy/Polyp (CARDIA INFLAMM) Procedures: HE/4, Gross/Micro L4/2 -------- Patient: Pat Baires [id number] (Continued) -------- Signed (signature on file) Davion Morris MD 10/03/23 0927 [facility] Insurance Correspondenceon 0 09-24-2023 Insurance Correspondence [id number]#1.00TIFF [facility] Consent for Procedure/Surger yon 08-21-2023 Consent for Procedure/Surgery [id number]#1.00TIFF [facility] Facesheeton 08-20-2023 Facesheet [id number]#1.00TIFF [facility] Ambulatory Visit Summaryon 1 10-20-2022 Ambulatory [...] for choosing us for your care. Normal [facility] Consultation Noteon 07-03-20 23 Consultation Note [id number]#1.00TIFF Normal [facility] Physician Referralon 023 Physician Referral [id number]#1.00TIFF Normal [facility] CT ABDOMEN W CONon 3 CT ABDOMEN [...] by: NAWAF GUAMAN Date: 2022-12-30 15:[address] [facility] HEMOGLOBINon 12-30-2022 Hemoglobin (Bld) [Mass/Vol] 13.5 g/dL Critically low 14.0-18.[address] [facility] Comment on above: Performed By: #### H GB ####[facility] [address] [place] [id number] Morris XR GI UPPER AIR KUB DUAL [...] ELLEN FISHER Date: 2022-09-24 12:25 Normal [facility] H PYLORI ANTIBODY IGGon 08-16 H. PYLORI IGG ABS 0.12 Index Value Normal 0.00-0.79 [facility] Comment on above: Result Comment: Nega tive <0.80 Equivocal 0.80 - 0.89 Positive >0.89 Performed By: #### H PYLLC ####[facility] [address] [place] [id number]. Lanre Morris AMYLASEon 09-10-2022 Amylase [Catalytic activity/Vol] 64 U/L Normal 25-115 [facility] Comment on above: Performed By: #### C MP, LIPA, ADAL, LIPID, DBIL #### [facility] [address] [place], [place] [address] Dr. Lanre Morris BILIRUBIN CONJUGATED (DIRECT )on 09-10-2022 BILI, CONJUGATED 0.1 mg/dL Normal 0.0-0.[address] [facility] Comment on above: Performed By: #### C MP, LIPA, ADAL, LIPID, DBIL #### [facility] [address] [place] [address] [address] Lanre Morris LIPASEon 09-10-2022 Lipase [Catalytic activity/Vol] 63.0 U/L Critically low 73.0-393.[address] [facility] Comment on above: Performed By: #### C MP, LIPA, ADAL, LIPID, DBIL #### [facility] [address] [place] [address] Dr. Lanre Morris LIPID PROFILEon 09-10-2022 CHOL-HDL RATIO NORM SEE BELOW Normal [facility] Comment on above: Result Comment: 3.3 - 4.4 LOW RISK 4.4 - 7.1 AVERAGE RISK 7.1 - 11.0 MODERATE RISK >11.0 HIGH RISK Performed By: #### C MP, LIPA, ADAL, LIPID, DBIL #### [facility] [address] [place] [address] Dr. Lanre Morris Cholesterol [Mass/Vol] 210 mg/dL Critically high <=200 [facility] Comment on above: Performed By: #### C MP, LIPA, ADAL, LIPID, DBIL #### [facility] [address] [place] [address] Dr. Lanre Morris Cholesterol in HDL [Mass/Vol] 45 mg/dL Normal 40-[address] [facility] Comment on above: Performed By: #### C MP, LIPA, ADAL, LIPID, DBIL #### [facility] [address] [place] [address] Dr. Lanre Morris Cholesterol in LDL [Mass/Vol] 126.8 mg/dL Normal [facility] Comment on above: Performed By: #### C MP, LIPA, ADAL, LIPID, DBIL #### [facility] [address] [place] [address] Dr. Lanre Morris Cholesterol.total/C holesterol in HDL [Mass ratio] 4.7 {ratio} Normal [facility] Comment on above: Performed By: #### C MP, LIPA, ADAL, LIPID, DBIL #### [facility] [address] [place] [address] [address] Lanre Morris HDL NORMAL > or = 60 mg/dl - LO W CARDIOVASCULAR RISK <40 mg/dl - HIGH CARDIOVASCULAR RISK Normal [facility] Comment on above: Performed By: #### C MP, LIPA, ADAL, LIPID, DBIL #### [facility] [address] [place] [address] [address] Lanre Morris LDL CALC NORMAL SEE BELOW Normal [facility] Comment on above: Result Comment: <100 mg/dl OPTIMAL 100 - 129 mg/dl NEAR OR ABOVE OPTIMAL 130 - 159 mg/dl BORDERLINE HIGH 160 - 189 mg/dl HIGH >190 mg/dl VERY HIGH Performed By: #### C MP, LIPA, ADAL, LIPID, DBIL #### [facility] [address] [place] [address] Dr. Lanre Morris Triglyceride [Mass/Vol] 191 mg/dL Critically high <=[address] [facility] Comment on above: Performed By: #### C MP, LIPA, ADAL, LIPID, DBIL #### [facility] [address] [place] [address] Dr. Lanre Morris VLDL CALC 38.2 mg/dL Normal [facility] Comment on above: Performed By: #### C MP, LIPA, ADAL, LIPID, DBIL #### [facility] [address] [place] [address] Dr. Lanre Morris PROF 14(COMP METB)on 022 Albumin [Mass/Vol] 4.2 g/dL Normal 3.4-5.[address] [facility] Comment on above: Performed By: #### C MP, LIPA, ADAL, LIPID, DBIL #### [facility] [address] [place] [address] Dr. Lanre Morris Albumin/Globulin [Mass ratio] 1.2 {ratio} Normal [facility] Comment on above: Performed By: #### C MP, LIPA, ADAL, LIPID, DBIL #### [facility] [address] [place] [address] Dr. Lanre Morris ALP [Catalytic activity/Vol] 67 U/L Normal 46-[address] [facility] Comment on above: Performed By: #### C MP, LIPA, ADAL, LIPID, DBIL #### [facility] [address] [place] [address] Dr. Lanre Morris ALT [Catalytic activity/Vol] 29 U/L Normal 16-63 [facility] Comment on above: Performed By: #### C MP, LIPA, ADAL, LIPID, DBIL #### [facility] [address] [place] [address] Dr. Lanre Morris Anion gap [Moles/Vol] 9.7 mmol/L Normal [facility] Comment on above: Performed By: #### C MP, LIPA, ADAL, LIPID, DBIL #### [facility] [address] [place] [address] Dr. Lanre Morris AST [Catalytic activity/Vol] 18 U/L Normal 15-[address] [facility] Comment on above: Performed By: #### C MP, LIPA, ADAL, LIPID, DBIL #### [facility] [address] [place] [address] Dr. Lanre Morris Bilirubin [Mass/Vol] 0.4 mg/dL Normal 0.2-1.[address] [facility] Comment on above: Performed By: #### C MP, LIPA, ADAL, LIPID, DBIL #### [facility] [address] [place] [address] Dr. Lanre Morris Calcium [Mass/Vol] 9.6 mg/dL Normal 8.5-10.[address] [facility] Comment on above: Performed By: #### C MP, LIPA, ADAL, LIPID, DBIL #### [facility] [address] [place] [address] Dr. Lanre Morris Chloride [Moles/Vol] 101 mmol/L Normal 98-107 [facility] Comment on above: Performed By: #### C MP, LIPA, ADAL, LIPID, DBIL #### [facility] [address] [place] [address] Dr. Lanre Morris CO2 [Moles/Vol] 32.7 mmol/L Critically high 21.0-32.0 [facility] Comment on above: Performed By: #### C MP, LIPA, ADAL, LIPID, DBIL #### [facility] [address] [place] [address] Dr. Lanre Morris Creatinine [Mass/Vol] 0.92 mg/dL Normal 0.70-1.30 [facility] Comment on above: Performed By: #### C MP, LIPA, ADAL, LIPID, DBIL #### [facility] [address] [place] [address] Dr. Lanre Morris EGFR-AF GAMBIAN >60 Normal >=60 [facility] Comment on above: Performed By: #### C MP, LIPA, ADAL, LIPID, DBIL #### [facility] [address] [place] [address] Dr. Lanre Morris EGFR-NON AF GAMBIAN >60 Normal >=[address] [facility] Comment on above: Performed By: #### C MP, LIPA, ADAL, LIPID, DBIL #### [facility] [address] [place] [address] Dr. Lanre Morris Globulin (S) [Mass/Vol] 3.5 g/dL Normal [facility] Comment on above: Performed By: #### C MP, LIPA, ADAL, LIPID, DBIL #### [facility] [address] [place] [address] Dr. Lanre Morris Glucose [Mass/Vol] 94 mg/dL Normal 74-106 [facility] Comment on above: Performed By: #### C MP, LIPA, ADAL, LIPID, DBIL #### [facility] [address] [place] [address] Dr. Lanre Morris Potassium [Moles/Vol] 4.4 mmol/L Normal 3.5-5.1 [facility] Comment on above: Performed By: #### C MP, LIPA, ADAL, LIPID, DBIL #### [facility] [address] [place] [address] Dr. Lanre Morris Protein [Mass/Vol] 7.7 g/dL Normal 6.4-8.2 [facility] Comment on above: Performed By: #### C MP, LIPA, ADAL, LIPID, DBIL #### [facility] [address] [place] [address] [address] Lanre Morris Sodium [Moles/Vol] 139 mmol/L Normal 136-145 [facility] Comment on above: Performed By: #### C MP, LIPA, ADAL, LIPID, DBIL #### [facility] [address] [place] [address] [address] Lanre Morris Urea nitrogen [Mass/Vol] 10.0 mg/dL Normal 7.0-18.[address] [facility] Comment on above: Performed By: #### C MP, LIPA, ADAL, LIPID, DBIL #### [facility] [address] [place] [address] [address] Lanre Morris Urea nitrogen/Creatinine [Mass ratio] 10.9 mg/mg Normal [facility] Comment on above: Performed By: #### C MP, LIPA, ADAL, LIPID, DBIL #### [facility] [address] [place] [address] [address] CHEST W CONon [...] ELLEN FISHER Date: 2022-05-03 16:49 Normal [facility] INSULINon 04-30-2022 Insulin 11.5 uIU/mL Normal 2.6-24.[address] [facility] Comment on above: Performed By: #### I NSULIN ####[facility] [address] [place] [address]Dr. Lanre Morris T4, T3U, FTI LABCORPon 04-30 Free Thyroxine Index 1.9 Normal 1.2-4.9 [facility] Comment on above: Performed By: #### T HYLC ####[facility] [address] [place] [address]Dr. Lanre Morris T3 Uptake 27 % Normal 24-39 [facility] Comment on above: Performed By: #### T HYLC ####[facility] [address] [place] [address]Dr. Lanre Arturo T4 [Mass/Vol] 6.9 ug/dL Normal 4.5-12.0 [facility] Comment on above: Performed By: #### T HYLC ####[facility] [address] [place], [place] [address]Dr. Lanre Arturo TESTOSTERONE, TOTALon 2021 Testosterone [Mass/Vol] 559 ng/dL Normal 264-916 [facility] Comment on above: Result Comment: Adul t male reference interval is based on a population of healthy nonobese males (BMI <30) between 19 and 39 years old. vadim Cleary.al. JCEM 2017,102;2898-0480. PMID: [id number]. Performed By: #### T ESTTOT ####[facility] [address] [place], [place] [address]Dr. Lanre Arturo CBC AUTO DIFFon 04-29-2022 BASO # 0.1 103/ul Normal 0.0-0.1 [facility] Comment on above: Performed By: #### C BC ####[facility] [address] [place] [address]Dr. Lanre Arturo Basophils/100 WBC (Bld) 0.8 % Normal 0.2-2.0 [facility] Comment on above: Performed By: #### C BC ####[facility] [address] [place], [place] [address]Dr. Lanre Morris EO # 0.4 103/ul Normal 0.0-0.7 [facility] Comment on above: Performed By: #### C BC ####[facility] [address] [place], [place] [address]Dr. Lanre Arturo Eosinophils/100 WBC (Bld) 4.9 % Normal 0.9-7.0 [facility] Comment on above: Performed By: #### C BC ####[facility] [address] [place], [place] [address]Dr. Lanre Arturo Erythrocyte distribution width (RBC) [Ratio] 13.7 % Normal 11.0-15.0 [facility] Comment on above: Performed By: #### C BC ####[facility] [address] [place], [place] [address]Dr. Justineshayy Morris Hematocrit (Bld) [Volume fraction] 44.3 % Normal 42.0-54.0 [facility] Comment on above: Performed By: #### C BC ####[facility] [address] [place], [place] [address]Dr. Lanre Morris Hemoglobin (Bld) [Mass/Vol] 15.0 g/dL Normal 14.0-18.0 [facility] Comment on above: Performed By: #### C BC ####[facility] [address] [place], [place] [address]Dr. Justineshayy Morris IG # 0.04 10e3/ul Critically high 0.00-0.03 [facility] Comment on above: Performed By: #### C BC ####[facility] [address] [place], [place] [address]Dr. Lanre Morris IG % 0.5 % Normal 0.0-0.5 [facility] Comment on above: Performed By: #### C BC ####[facility] [address] [place], [place] [address]DrParveen Morris LYMPH # 2.7 103/ul Normal 1.2-3.8 [facility] Comment on above: Performed By: #### C BC ####[facility] [address] [place], [place] [address]DrParveen Morris Lymphocytes/100 WBC (Bld) 35.2 % Normal 20.5-60.[address] [facility] Comment on above: Performed By: #### C BC ####[facility] [address] [place], [place] [address]DrParveen Morris MANUAL DIFF REQ NO Normal [facility] Comment on above: Performed By: #### C BC ####[facility] [address] [place] [address]DrParveen Morris MCH (RBC) [Entitic mass] 29.8 pg Normal 25.9-34.0 [facility] Comment on above: Performed By: #### C BC ####[facility] [address] [place], [place] [address]DrParveen Morris MCHC (RBC) [Mass/Vol] 33.9 g/dL Normal 29.9-35.2 [facility] Comment on above: Performed By: #### C BC ####[facility] [address] [place], [place] [address]DrParveen Morris MCV (RBC) [Entitic vol] 88.1 fL Normal 80.0-94.0 [facility] Comment on above: Performed By: #### C BC ####[facility] [address] [place], [place] [address]DrParveen Morris MONO # 0.6 103/ul Normal 0.3-0.8 [facility] Comment on above: Performed By: #### C BC ####[facility] [address] [place], [place] [address]DrParveen Morris Monocytes/100 WBC (Bld) 8.4 % Normal 1.7-12.0 [facility] Comment on above: Performed By: #### C BC ####[facility] [address] [place], [place] [address]DrParveen Morris NEUT # 3.8 103/ul Normal 1.4-6.5 [facility] Comment on above: Performed By: #### C BC ####[facility] [address] [place], [place] [address]DrParveen Morris Neutrophils/100 WBC (Bld) 50.2 % Normal 43.0-75.0 [facility] Comment on above: Performed By: #### C BC ####[facility] [address] [place] [address]Dr. Lanre Morris Platelet mean volume (Bld) [Entitic vol] 9.6 fL Normal 9.5-13.[address] [facility] Comment on above: Performed By: #### C BC ####[facility] [address] [place] [address]Dr. Lanre Morris PLT 363 103/ul Normal 150-450 [facility] Comment on above: Performed By: #### C BC ####[facility] [address] [place], [place] [address]Dr. Lanre Morris RBC 5.03 106/ul Normal 4.70-6.10 [facility] Comment on above: Performed By: #### C BC ####[facility] [address] [place], [place] [address]Dr. Lanre Morris WBC 7.6 103/ul Normal 4.0-11.0 [facility] Comment on above: Performed By: #### C BC ####[facility] [address] [place], [place] [address]Dr. Lanre Morris GLYCOHEMOGLOBIN A1Con 2021 ADA RECOMMENDATION SEE BELOW Normal [facility] Comment on above: Result Comment: ADA RECOMMENDED LIMIT 4.0 - 6.0 ADA THERAPEUTIC TARGET < 7.0 ACTION SUGGESTED > 7.0 Performed By: #### A 1C ####[facility] [address] [place] [address]Dr. Lanre Morris Glucose [Mass/Vol] 108 mg/dL Normal [facility] Comment on above: Performed By: #### A 1C ####[facility] [address] [place], [place] [address]Dr. Lanre Morris HbA1c (Bld) [Mass fraction] 5.4 % Normal 4.5-6.2 [facility] Comment on above: Performed By: #### A 1C ####[facility] [address] [place], [place] [address]Dr. Lanre Morris LIPID PROFILEon 04-29-2022 CHOL-HDL RATIO NORM SEE BELOW Normal [facility] Comment on above: Result Comment: 3.3 - 4.4 LOW RISK 4.4 - 7.1 AVERAGE RISK 7.1 - 11.0 MODERATE RISK >11.0 HIGH RISK Performed By: #### C MP, LIPID, TSH #### [facility] [address] [place] [address] [address] Lanre Morris Cholesterol [Mass/Vol] 254 mg/dL Critically high <=[address] [facility] Comment on above: Performed By: #### C MP, LIPID, TSH #### [facility] [address] [place] [address] [address] Lanre Morris Cholesterol in HDL [Mass/Vol] 44 mg/dL Normal 40-[address] [facility] Comment on above: Performed By: #### C MP, LIPID, TSH #### [facility] [address] [place] [address] [address] Lanre Morris Cholesterol in LDL [Mass/Vol] 173.6 mg/dL Normal [facility] Comment on above: Performed By: #### C MP, LIPID, TSH #### [facility] [address] [place] [address] [address] Lanre Morris Cholesterol.total/C holesterol in HDL [Mass ratio] 5.8 {ratio} Normal [facility] Comment on above: Performed By: #### C MP, LIPID, TSH #### [facility] [address] [place] [address] [address] Lanre Morris HDL NORMAL > or = 60 mg/dl - LO W CARDIOVASCULAR RISK <40 mg/dl - HIGH CARDIOVASCULAR RISK Normal [facility] Comment on above: Performed By: #### C MP, LIPID, TSH #### [facility] [address] [place] [address] Dr. Lanre Morris LDL CALC NORMAL SEE BELOW Normal [facility] Comment on above: Result Comment: <100 mg/dl OPTIMAL 100 - 129 mg/dl NEAR OR ABOVE OPTIMAL 130 - 159 mg/dl BORDERLINE HIGH 160 - 189 mg/dl HIGH >190 mg/dl VERY HIGH Performed By: #### C MP, LIPID, TSH #### [facility] [address] [place] [address] [address] Lanre Morris Triglyceride [Mass/Vol] 182 mg/dL Critically high <=150 [facility] Comment on above: Performed By: #### C MP, LIPID, TSH #### [facility] [address] [place] [address] [address] Lanre Morris VLDL CALC 36.4 mg/dL Normal [facility] Comment on above: Performed By: #### C MP, LIPID, TSH #### [facility] [address] [place] [address] [address] Lanre Morris PROF 14(COMP METB)on 022 Albumin [Mass/Vol] 4.3 g/dL Normal 3.4-5.[address] [facility] Comment on above: Performed By: #### C MP, LIPID, TSH #### [facility] [address] [place] [address] [address] Lanre Morris Albumin/Globulin [Mass ratio] 1.3 {ratio} Normal [facility] Comment on above: Performed By: #### C MP, LIPID, TSH #### [facility] [address] [address] [address] Lanre Morris ALP [Catalytic activity/Vol] 58 U/L Normal 46-[address] [facility] Comment on above: Performed By: #### C MP, LIPID, TSH #### [facility] [address] [address] [address] Lanre Morris ALT [Catalytic activity/Vol] 21 U/L Normal 16-63 [facility] Comment on above: Performed By: #### C MP, LIPID, TSH #### [facility] [address] [address] [address] Lanre Morris Anion gap [Moles/Vol] 11.3 mmol/L Normal [facility] Comment on above: Performed By: #### C MP, LIPID, TSH #### [facility] [address] [address] [address] Lanre Morris AST [Catalytic activity/Vol] 12 U/L Critically low 15-37 [facility] Comment on above: Performed By: #### C MP, LIPID, TSH #### [facility] [address] [address] [address] Lanre Morris Bilirubin [Mass/Vol] 0.3 mg/dL Normal 0.2-1.[address] [facility] Comment on above: Performed By: #### C MP, LIPID, TSH #### [facility] [address] [place] [address] Dr. Lanre Morris Calcium [Mass/Vol] 9.3 mg/dL Normal 8.5-10.1 [facility] Comment on above: Performed By: #### C MP, LIPID, TSH #### [facility] [address] [address] [address] Lanre Morris Chloride [Moles/Vol] 102 mmol/L Normal 98-[address] [facility] Comment on above: Performed By: #### C MP, LIPID, TSH #### [facility] [address] [place] [address] Dr. Lanre Morris CO2 [Moles/Vol] 29.8 mmol/L Normal 21.0-32.[address] [facility] Comment on above: Performed By: #### C MP, LIPID, TSH #### [facility] [address] [place] [address] Dr. Lanre Morris Creatinine [Mass/Vol] 0.99 mg/dL Normal 0.70-1.[address] [facility] Comment on above: Performed By: #### C MP, LIPID, TSH #### [facility] [address] [place] [address] Dr. Lanre Morris EGFR-AF GAMBIAN >60 Normal >=60 [facility] Comment on above: Performed By: #### C MP, LIPID, TSH #### [facility] [address] [place] [address] Dr. Lanre Morris EGFR-NON AF GAMBIAN >60 Normal >=[address] [facility] Comment on above: Performed By: #### C MP, LIPID, TSH #### [facility] [address] [place] [address] Dr. Lanre Morris Globulin (S) [Mass/Vol] 3.3 g/dL Normal [facility] Comment on above: Performed By: #### C MP, LIPID, TSH #### [facility] [address] [address] [address] Lanre Morris Glucose [Mass/Vol] 112 mg/dL Critically high 74-106 [facility] Comment on above: Performed By: #### C MP, LIPID, TSH #### [facility] [address] [address] [address] Lanre Morris Potassium [Moles/Vol] 4.1 mmol/L Normal 3.5-5.[address] [facility] Comment on above: Performed By: #### C MP, LIPID, TSH #### [facility] [address] [place] [address] Dr. Lanre Morris Protein [Mass/Vol] 7.6 g/dL Normal 6.4-8.[address] [facility] Comment on above: Performed By: #### C MP, LIPID, TSH #### [facility] [address] [place] [address] Dr. Lanre Morris Sodium [Moles/Vol] 139 mmol/L Normal 136-[address] [facility] Comment on above: Performed By: #### C MP, LIPID, TSH #### [facility] [address] [place] [address] Dr. Lanre Morris Urea nitrogen [Mass/Vol] 9.0 mg/dL Normal 7.0-18.[address] [facility] Comment on above: Performed By: #### C MP, LIPID, TSH #### [facility] [address] [place] [address] Dr. Lanre Morris Urea nitrogen/Creatinine [Mass ratio] 9.1 mg/mg Normal [facility] Comment on above: Performed By: #### C MP, LIPID, TSH #### [facility] [address] [place] [address] Dr. Lanre Morris TSHon 04-29-2022 TSH 1.103 uIU/mL Normal 0.358-3.[address] [facility] Comment on above: Performed By: #### C MP, LIPID, TSH ####[facility] [id number] [address] Lanre Morris Vital Signs Date Time Vital Sign Value Performing Clinician Emil eagle 08-19-2023 15:36-0500 Blood Pressure Location Matias ROSALIO [facility] [place] 08-19-2023 15:36-0500 Diastolic blood pressure 90 mm[Hg] Matias NILL [facility] [place] 08-19-2023 15:36-0500 Heart rate 76 /min Matias NILL [facility] [place] 08-19-2023 15:36-0500 Respiratory rate 16 /min Matias NILL [facility] [place] 08-19-2023 15:36-0500 Systolic blood pressure 136 mm[Hg] Matias NILL [facility] [place] Encounters Encounter Date Encounter Type Care Provider Facility Start: 10-21-2023 End: 10-22-2023 ambulatory Matias R ROSALIO Facility:[facility] Start: 10-01-2023 End: 10-01-2023 ambulatory Matias R Rosalio Facility:[facility] Start: 10-01-2023 End: 10-02-2023 ambulatory Matias SANTAMARIA [facility] Work Phone: Start: 10-01-2023 End: 10-01-2023 Departed Referred MD Matias Santamaria Work Phone: [facility] [facility] Start: 08-19-2023 End: 08-20-2023 ambulatory Matias R NILL Facility:[facility] Start: 08-19-2023 End: 08-19-2023 Patient encounter procedure Matias SANTAMARIA [facility] Start: 06-30-2023 ambulatory Matias SANTAMARIA Facility:[facility] Start: 12-30-2022 End: 12-31-[address] ANABELA JAVED . Facility: Start: 09-24-2022 End: 01-11-[address] ANABELA JAVED . Facility:[facility] Start: 09-10-2022 End: 09-11-[address] ANABELA JAVED . Facility:[facility] Start: 05-03-2022 End: 05-04-[address] ANABELA JAVED . Facility:[facility] Start: 04-30-2022 Encounter for genera l adult medical examination without abnormal findings DR ANABELA JAVED . [facility] Start: 04-29-2022 End: 04-30-[address] ANABELA JAVED . Facility:[facility] Start: 04-29-2022 End: 04-30-2022 Encounter for general adult medical examination without abnormal findings DR ANABELA JAVED . Facility:[facility] Procedures Date Procedure Procedure Detail Performing Clinician Start: 04-29-[address] AIDA JAVED . Comment on above: Performed By: #### P [facility] ####[facility] [id number] [place], [place] [address]Bl. Lanre Morris Closed fracture of r ight femur (disorder) Matias SANTAMARIA Immunizations Immunization Date Immunization Notes Care Provider Fa cility NEGATED: Highlighted row has not occurred!08-19-2023 influenza virus vaccine, unspecified formulation Matias SANTAMARIA [facility] [place] Payers Date Payer Category Payer Self-pay 2023 Private Health Insurance [id number] 1985 Unknown [id number] 2.16.84 [id number] 1985 Unknown [id number] 2.16.84 [id number] 1983 Unknown [id number] 2.16.84 [id number] 1983 Unknown [id number] .16.84 [id number] 1983 Unknown [id number] 2.16.84 [id number] 1983 Unknown [id number] 2.16.8 [id number] 1983 Unknown [id number] 2.16.8 [id number] 1983 Unknown [id number] 2.16.8 [id number] 1983 Unknown [id number] 2.16.8 [id number] 1961 Private Health Insurance [id number] Social History Date Type Detail Facility Start: 08-19-2023 Tobacco smoking status Ex-smoker (fi nding) [facility] [place] Tobacco smoking status Smokeless tobacco user within last 30 days [facility] [place] Sex Assigned At Male [facility] Start: 1985 Sex Assigned At Male Adelso [facility] Functional Status Date Assessment Result Facility 08-19-2023 [facility]-19-[facility]23 Note Date & Type [...] vaccine, inactivated - Not Given Patient Refuses [facility] Comment on above: Result Comment: Elec tronically [...] by: ROSETTA DUPONT Date: 2022-09-10 16:49 [facility] Evaluation + Plan note Note Date & Type Note Facility Evaluation + Plan note No data available for this section [facility] [place] Evaluation note Note Date & Type Note Facility Evaluation note No assessment information availa agustín [facility] Work Phone: Hospital Discharge instructions Note Date & Type Note Facility Hospital Discharge instructions No data available for this section [facility] [place] Progress note Note Date & Type Note Facility Progress note No data available for this section [facility] [place] Summary Purpose Family History No Family History [...] and content) DATE CREATED AUTHOR 01/02/2023 [facility] DATE CREATED AUTHOR AUTHOR'S ORGANIZ ATION 11/04/2023 [facility] DATE CREATED AUTHOR AUTHOR'S ORGANIZ ATION 11/04/2023 [facility] Patient Care team informatio n [...] BE BASED ON THE PRIMARY CLINICAL RECORDS. [employer] provides no warranty or guarantee of the accuracy or completeness of information in this document.
== END 2024-11-02 15:31 | disposition home or self-care (01) ==
LOC: CARD 15:30
PROVIDERS: PCP Family Medicine; Visit Provider Nurse Practitioner Family
DX: R00.2 Palpitations (principal)
CPT/HCPCS: 93242